=== PATIENT | male | born 1945 | race Caucasian/White ===

== ENCOUNTER → 2019-11-08 15:02 | Outpatient (CLI) | payer MEDICARE, SELFPAY ==
--- NOTE | ~2019-11-08 | CT_ITS ---
EXAMINATION: CT sinus wo con DATE: 11/08/2019 15:21 INDICATION: Chronic sinusitis TECHNIQUE: Computed tomography (CT) of the paranasal sinuses was performed without intravenous contra st. The dose-length product was 280.89 mGy-cm. COMPARISON: CT dated 07/23/2019 FINDINGS: There are interval surgical changes with resection of the ostiomeatal units. There is chron ic mucosal thickening of the frontal, ethmoid, maxillary and sphenoid sinuses. Mastoids are pneumatiz ed. There is deformity of the nasal septum is likely related to recent surgery. There is decreased ri ghtward nasal septal deviation. IMPRESSION: 1. Moderate chronic paranasal sinus disease with interval postsurgical change. Reviewed, dictated and finalized at location A. 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
== END ==
PROVIDERS: PCP Family Medicine; Visit Provider Otolaryngology
DX: J32.9 Chronic sinusitis, unspecified (principal)
CPT/HCPCS: 70486

== ENCOUNTER → 2019-11-11 15:54 | Outpatient (CLI) | payer MEDICARE, SELFPAY ==
--- NOTE | ~2019-11-11 | XR_ITS ---
[[id number] ] INDICATION: Right rib pain after recent fall TECHNIQUE: Frontal projection of the upper right ribs, frontal projection of the lower right ribs, ob lique projection of all the right ribs, frontal inspiratory chest x-ray for interpretation. FINDINGS: There is a possible nondisplaced right ninth rib fracture posteriorly. There are no soft ti ssue abnormality seen. The lungs are clear. No pneumothorax identified. IMPRESSION: 1: Possible nondisplaced right ninth rib fracture posteriorly. Reviewed, dictated and finalized at location A. 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
== END ==
PROVIDERS: PCP Family Medicine; Visit Provider Family Medicine
DX: R07.81 Pleurodynia (principal)
CPT/HCPCS: 71101

== ENCOUNTER → 2020-06-15 14:43 | Outpatient (CLI) | payer MEDICARE, SELFPAY ==
--- NOTE | ~2020-06-15 | CT_ITS ---
EXAMINATION: CT sinus wo con DATE: 06/15/2020 15:03 INDICATION: Chronic sinusitis. Rhinoplasty in August 2019 TECHNIQUE: Computed tomography (CT) of the paranasal sinuses was performed without contrast. Iterativ e reconstruction technique was employed. Exam dose: 282.66 mGy-cm total exam DLP. COMPARISON: 11/08/2019 CT sinuses FINDINGS: There is mild mucoperiosteal thickening of the right maxillary sinus and minimal mucoperios teal thickening of the remainder of the sinuses. No soft tissue masses or fluid levels. The mastoid air cells are normally developed and aerated bilaterally. There is minimal rightward bowing of the lower half of the nasal septum and mild to moderate leftward bowing of the upper portion of the nasal septum. Intralamellar cell of both middle nasal turbinates. The nasal turbinates are moderately prominent but relatively symmetric in size. Bilateral nasal antral windows and resection of the uncinate processes bilaterally. IMPRESSION: Status post bilateral nasal antral windows and uncinate process resection Bilateral intralamellar cell of middle nasal turbinates Mild mucoperiosteal thickening of right maxillary sinus and minimal mucoperiosteal thickening of the remaining sinuses Patent mastoid air cells Reviewed, dictated and finalized at Location A. Reviewed, dictated and finalized at location A. IMPRESSION: Status post bilateral nasal antral windows and uncinate process re section Bilateral intralamellar cell of middle nasal turbinates Mild mucoperiosteal thickening of right maxillary sinus and minimal mucoperiost eal thickening of the remaining sinuses Patent mastoid air cells
== END ==
PROVIDERS: Visit Provider Otolaryngology
DX: J34.2 Deviated nasal septum (principal); R93.0 Abnormal findings on diagnostic imaging of skull and head, not elsewhere classified
CPT/HCPCS: 70486

== ENCOUNTER 2021-06-16 16:57 | Emergency (ER) | payer MEDICARE, SELFPAY ==
[2021-06-16 17:16] VITALS: BP 165/78; PULSE 80; RESP 18; TEMP 37.1; O2SAT 97
--- NOTE | 2021-06-16 17:41 | ED.URI ---
HPI - URI/Sore Throat General Chief Complaint: Upper Respiratory Infection Stated Complaint: Sinus Time Seen by Provider: 06/16/21 17:41 Source: patient Mode of arrival: ambulatory Limitations: no limitations History of Present Illness HPI Narrative: Trevor Aldana is a 76 yo male with a PMH of tension, seasonal allergies, GERD, BHP, high cholesterol, diabetes, depression, who comes to [facility] for complaints of sinus issues he has just finished 2 rounds of antibiotics the first being amoxicillin and then Augmentin which he just finished he said that he needs an additional antibiotic for sinus issues and that he prefers to have Zithromax and prednisone. He has a primary care physician he also has an ENT; ENT did a sinus scraping 2 years ago that she said did not do any good He feels that he needs additional medication because the symptoms occur when he has constant bilateral sinus pressure Related Data Home Medications Medication Instructions Recorded Confirmed amlodipine 10 mg PO DAILY 06/16/21 06/16/21 aspirin 325 mg PO DAILY 06/16/21 06/16/21 azelastine 137 mcg INTRANASAL BID 06/16/21 06/16/21 carvedilol 25 mg PO DAILY 06/16/21 06/16/21 doxazosin 4 mg PO DAILY 06/16/21 06/16/21 escitalopram oxalate 10 mg PO DAILY 06/16/21 06/16/21 finasteride 5 mg PO DAILY 06/16/21 06/16/21 fluticasone propionate 50 mcg INTRANASAL DAILY 06/16/21 06/16/21 furosemide 40 mg PO DAILY 06/16/21 06/16/21 glipizide 5 mg PO DAILY 06/16/21 06/16/21 metformin 1,000 mg PO DAILY 06/16/21 06/16/21 montelukast 10 mg PO DAILY 06/16/21 06/16/21 rosuvastatin 20 mg PO DAILY 06/16/21 06/16/21 sitagliptin [Januvia] 100 mg PO DAILY 06/16/21 06/16/21 valsartan-hydrochlorothiazide 1 tablet PO DAILY 06/16/21 06/16/21 Allergies Allergy/AdvReac Type Severity Reaction Status Date / Time Sulfa (Sulfonamide Allergy Severe HIVES Verified 06/16/21 17:19 Antibiotics) Review of Systems Review of Systems: CONSTITUTIONAL: Denies fever, chills, sweats. EYES: Denies visual changes, redness, discharge. ENT: As rhinorrhea, congestion, sore throat, otalgia. Sinus pressure-bilateral CARDIOVASCULAR: Denies chest pain, palpitations, edema. RESPIRATORY: Denies dyspnea, wheezing, cough GASTROINTESTINAL: Denies abdominal pain, nausea, vomiting, diarrhea. GENITOURINARY: Denies dysuria, hematuria, abnormal discharge SKIN: Denies rash or itching. NEUROLOGIC: Denies numbness, or focal weakness. PSYCHIATRIC: Denies anxiety or depression. [facility] Past Medical History Medical History Depression Diabetes GERD (gastroesophageal reflux disease) High cholesterol HTN (hypertension) Seasonal allergies Social History Social History (Updated 06/16/21 @ 17:46 by Tita Han CNP) Smoking status: Former smoker Alcohol intake: current Comments At time of signature, I agree with nursing past medical, surgical, social and family history. There is no relevant family history pertinent to the presenting complaint. Has diagnosis of hypertension blood pressure is elevated Exam Narrative: GENERAL: This is a well-nourished, well-developed patient, in mild distress. HEAD: normocephalic, atraumatic. EYES: PERRL. Sclera clear/white. Vision is grossly intact. EARS: External ears normal, auditory canals clear and without drainage, right TM bulging with fluid behind left less so. Hearing grossly intact. NOSE: External nose normal without nasal discharge, right turbinate erythema, mild rhinorrhea. THROAT: Mucous membranes moist, posterior pharynx mild erythema NECK: Neck supple, non-tender CARDIOVASCULAR: Regular rate and rhythm without murmurs, gallops, or rubs. RESPIRATORY: Clear to auscultation. Breath sounds equal bilaterally. No wheezes, rales, or rhonchi. GASTROINTESTINAL: Abdomen soft, SKIN: warm, intact with no suspicious lesions or rash, good texture and turgor. NEURO: awake, alert, and oriented to person
== END 2021-06-16 18:15 | disposition home or self-care (01) ==
PROVIDERS: Emergency Provider Nurse Practitioner; PCP Family Medicine
DX: J01.10 Acute frontal sinusitis, unspecified (principal); Z87.891 Personal history of nicotine dependence; F32.9 Major depressive disorder, single episode, unspecified; E11.9 Type 2 diabetes mellitus without complications; K21.9 Gastro-esophageal reflux disease without esophagitis; E78.00 Pure hypercholesterolemia, unspecified; I10 Essential (primary) hypertension; Z79.82 Long term (current) use of aspirin
CPT/HCPCS: 99213; G0463

== ENCOUNTER → 2021-06-25 08:21 | Outpatient (CLI) | payer MEDICARE, SELFPAY ==
--- NOTE | ~2021-06-25 | CT_ITS ---
EXAMINATION: CT sinus wo con DATE: 06/25/2021 08:40 INDICATION: Chronic sinusitis TECHNIQUE: Computed tomography (CT) of the paranasal sinuses was performed without intravenous contra st. The dose-length product (DLP) was 292.39 mGy-cm. Iterative reconstruction was used. COMPARISON: 06/15/2020 FINDINGS: Surgical changes are noted in the medial aspects of the maxillary sinuses. There is normal development and pneumatization of the paranasal sinuses. There is mild mucosal thickening in the maxi llary sinuses, left sphenoid sinus, and frontal sinuses. The bilateral ostiomeatal complexes are pat ent. Visualized soft tissues are unremarkable. There is unchanged rightward deviation of the nasal se ptum. IMPRESSION: 1. Mild sinusitis as detailed above. Reviewed, dictated and finalized at location A.
== END ==
PROVIDERS: PCP Family Medicine; Visit Provider Nurse Practitioner Family
DX: J32.9 Chronic sinusitis, unspecified (principal)
CPT/HCPCS: 70486

== ENCOUNTER → 2022-06-10 15:29 | Outpatient (CLI) | payer MEDICARE, SELFPAY ==
--- NOTE | ~2022-06-10 | XR_ITS ---
EXAMINATION: XR knee LT min 4V DATE: 06/10/2022 16:03 INDICATION: Left knee pain. TECHNIQUE: 4 views of left knee including standing views were obtained. COMPARISON: None. FINDINGS: Bone alignment is normal. No fracture. Patellas bipartite. There is severe osteoarthritis o f medial compartment and mild osteoarthritis of lateral and patellofemoral compartments. No knee join t effusion. IMPRESSION: 1. Severe left knee osteoarthritis. Reviewed, dictated and finalized at location A.
== END ==
PROVIDERS: PCP Family Medicine; Visit Provider Family Medicine
DX: M17.12 Unilateral primary osteoarthritis, left knee (principal)
CPT/HCPCS: 73564

== ENCOUNTER 2022-07-30 10:33 | Emergency (ER) | payer MEDICARE, SELFPAY ==
[2022-07-30 11:10] VITALS: BP 128/72; PULSE 71; RESP 18; TEMP 36.8; O2SAT 99
--- NOTE | 2022-07-30 14:45 | ED.URI ---
HPI - URI/Sore Throat General Chief Complaint: Upper Respiratory Infection Stated Complaint: rt ear pain,sorethroat Source: patient Mode of arrival: ambulatory Limitations: no limitations History of Present Illness HPI Narrative: This is a 77 year old male who had sinus pressure, headache, earache, with the fatigue. Patient states he has had 2 sinus surgeries improved will wear move his body of the sinus infection. Patient denies any fever nausea or vomiting does not have any dizziness but does have some cough Related Data Home Medications Medication Instructions Recorded Confirmed amlodipine 10 mg tablet 10 mg PO DAILY 06/16/21 06/16/21 aspirin 325 mg tablet 325 mg PO DAILY 06/16/21 06/16/21 azelastine 137 mcg (0.1 %) nasal 137 mcg intranasal BID 06/16/21 06/16/21 spray aerosol carvedilol 25 mg tablet 25 mg PO DAILY 06/16/21 06/16/21 doxazosin 4 mg tablet 4 mg PO DAILY 06/16/21 06/16/21 escitalopram oxalate 10 mg tablet 10 mg PO DAILY 06/16/21 06/16/21 finasteride 5 mg tablet 5 mg PO DAILY 06/16/21 06/16/21 fluticasone propionate 50 50 mcg intranasal DAILY 06/16/21 06/16/21 mcg/actuation nasal spray,suspension furosemide 40 mg tablet 40 mg PO DAILY 06/16/21 06/16/21 glipizide 5 mg tablet 5 mg PO DAILY 06/16/21 06/16/21 metformin 1,000 mg tablet 1,000 mg PO DAILY 06/16/21 06/16/21 montelukast 10 mg tablet 10 mg PO DAILY 06/16/21 06/16/21 rosuvastatin 20 mg tablet 20 mg PO DAILY 06/16/21 06/16/21 sitagliptin 100 mg tablet (Januvia) 100 mg PO DAILY 06/16/21 06/16/21 valsartan 320 1 tablet PO DAILY 06/16/21 06/16/21 mg-hydrochlorothiazide 25 mg tablet Allergies Allergy/AdvReac Type Severity Reaction Status Date / Time Sulfa (Sulfonamide Allergy Severe Swelling Verified 07/30/22 11:38 Antibiotics) of Lip/Tongue/Throat Review of Systems Review of Systems: Headache, dizziness, sinus pressure a rate All systems reviewed & are unremarkable except as noted in HPI and below PMFSH Past Medical History Medical History Depression Diabetes GERD (gastroesophageal reflux disease) High cholesterol HTN (hypertension) Seasonal allergies Social History Social History (Updated 06/16/21 @ 17:46 by Tita Han, BETTYE) Smoking status: Former smoker Alcohol intake: current Exam Narrative: GENERAL:Well-appearing, well-nourished, and in no acute distress. HEAD:Normocephalic, atraumatic. EYES: PERRLA and EOMI. ENT: Nares clear, moderate rhinorrhea Mucous membranes moist. TM bulging with clear fluid CHEST: Clear to auscultation. No respiratory distress. HEART: Regular rate and rhythm.. Normal peripheral pulses. ABDOMEN: Soft, nontender, nondistended, normal active bowel sounds. EXTREMITIES: Normal range of motion. No edema. SKIN: Warm, dry, no rash. NEURO: No focal deficits. Alert and oriented x3. Course Course Emergency Course: Patient very adamant that he needed antibiotics this point the patient that antibiotics would fix him especially if it is not bacterial. Will order antibiotics of patient insisting Level of Care: Express Care Visit Vital Signs Vital signs: Vital Signs Temperature 98.2 F 07/30/22 11:10 Pulse Rate 71 07/30/22 11:10 Respiratory Rate 18 07/30/22 11:10 Blood Pressure 128/72 07/30/22 11:10 Pulse Oximetry 99 07/30/22 11:10 Oxygen Delivery Room Air 07/30/22 11:10 Temperature 98.2 F 07/30/22 11:10 Pulse Rate 71 07/30/22 11:10 Respiratory Rate 18 07/30/22 11:10 Blood Pressure 128/72 07/30/22 11:10 Pulse Oximetry 99 07/30/22 11:10 Oxygen Delivery Room Air 07/30/22 11:10 MDM - URI/Sore Throat Differential Diagnosis Differential diagnosis: Likely upper respiratory infection, otitis media, sinusitis, viral infection, bronchitis, influenza and pharyngitis Discharge Plan Discharge Clinical Impression: Earache on left Sinusitis Qualifiers: Sinusitis location: front
== END 2022-07-30 11:54 | disposition home or self-care (01) ==
PROVIDERS: Emergency Provider Nurse Practitioner Family; PCP Family Medicine
DX: H92.01 Otalgia, right ear (principal); J01.10 Acute frontal sinusitis, unspecified; E11.9 Type 2 diabetes mellitus without complications; K21.9 Gastro-esophageal reflux disease without esophagitis; E78.00 Pure hypercholesterolemia, unspecified; I10 Essential (primary) hypertension; Z87.891 Personal history of nicotine dependence; F32.A Depression, unspecified
CPT/HCPCS: 99213; G0463

== ENCOUNTER 2023-08-18 09:58 | Emergency (ER) | payer MEDICARE, SELFPAY ==
[2023-08-18 10:12] VITALS: BP 131/70; PULSE 68; RESP 18; TEMP 36.7; O2SAT 99
--- NOTE | 2023-08-18 11:17 | ED.URI ---
HPI - URI/Sore Throat General Chief Complaint: Upper Respiratory Infection Stated Complaint: cough,nasal drainage Time Seen by Provider: 08/18/23 11:10 Source: patient and RN notes reviewed Mode of arrival: ambulatory Limitations: no limitations History of Present Illness HPI Narrative: Patient presents today complaining of 5 day history of slight sore throat, fatigue, cough, nasal congestion. Denies fever or shortness of breath. He has been taking [place] Plus and DayQuil with mild relief. He has taken home COVID-19 test twice that have been negative. Denies any known sick contacts. History of chronic sinusitis for which he has had 2 rhinoplasty days. Last was in 2020. States symptoms have started to worsen since that time. Related Data Home Medications Medication Instructions Recorded Confirmed amlodipine 10 mg tablet 10 mg PO DAILY 06/16/21 08/18/23 aspirin 325 mg tablet 325 mg PO DAILY 06/16/21 08/18/23 azelastine 137 mcg (0.1 %) nasal 137 mcg intranasal BID 06/16/21 08/18/23 spray aerosol carvedilol 25 mg tablet 25 mg PO DAILY 06/16/21 08/18/23 doxazosin 4 mg tablet 4 mg PO DAILY 06/16/21 08/18/23 escitalopram oxalate 10 mg tablet 10 mg PO DAILY 06/16/21 08/18/23 finasteride 5 mg tablet 5 mg PO DAILY 06/16/21 08/18/23 furosemide 40 mg tablet 40 mg PO DAILY 06/16/21 08/18/23 glipizide 5 mg tablet 5 mg PO DAILY 06/16/21 08/18/23 metformin 1,000 mg tablet 1,000 mg PO DAILY 06/16/21 08/18/23 montelukast 10 mg tablet 10 mg PO DAILY 06/16/21 08/18/23 rosuvastatin 20 mg tablet 20 mg PO DAILY 06/16/21 08/18/23 sitagliptin phosphate 100 mg 100 mg PO DAILY 06/16/21 08/18/23 tablet (Januvia) valsartan 320 1 tablet PO DAILY 06/16/21 08/18/23 mg-hydrochlorothiazide 25 mg tablet Allergies Allergy/AdvReac Type Severity Reaction Status Date / Time Sulfa (Sulfonamide Allergy Severe Swelling Verified 08/18/23 10:19 Antibiotics) of Lip/Tongue/Throat Review of Systems Review of Systems: CONSTITUTIONAL: Denies body aches, fever, chills, or sweats.+ fatigue EYES: Denies visual changes, redness, or discharge. ENT: Denies rhinorrhea, otalgia.+ congestion, slight sore throat CARDIOVASCULAR: Denies chest pain, palpitations, or edema. RESPIRATORY: Denies dyspnea.+ cough GASTROINTESTINAL: Denies abdominal pain, nausea, vomiting, or diarrhea. GENITOURINARY: Denies dysuria or hematuria. SKIN: Denies rash, itching, or wounds. MUSCULOSKELETAL: Denies back pain, joint pain, or myalgia. NEUROLOGIC: Denies headache, numbness, tingling, or weakness. PSYCH: Denies depression or anxiety. [facility] Past Medical History Medical History Depression Diabetes GERD (gastroesophageal reflux disease) High cholesterol HTN (hypertension) Seasonal allergies Social History Social History Smoking status: Former smoker Alcohol intake: current Comments At time of signature, I have reviewed and agree with nursing past medical, surgical, social and family history unless otherwise noted. Please see nursing chart for further information. There is no relevant family history pertinent to the presenting complaint Exam Narrative: GENERAL: Well-appearing, well-nourished, and in no acute distress. HEAD: Normocephalic, atraumatic. EYES: EOMI. No redness or drainage. Conjunctivae normal. ENT: Mucous membranes pink and moist. Nares congested. No rhinorrhea. Erythematous and mildly swollen nasal turbinates. TMs normal bilaterally. Throat normal. Uvula midline. Bilateral maxillary sinus tenderness. NECK: Normal AROM. Supple. No lymphadenopathy. CHEST: No respiratory distress. Clear to auscultation. HEART: Regular rate and rhythm. No murmur appreciated. Normal peripheral pulses. EXTREMITIES: Normal range of motion. No edema. SKIN: Warm, dry, no rash. Capillary refill normal. Normal skin turgor. NEURO: No foc
== END 2023-08-18 11:23 | disposition home or self-care (01) ==
PROVIDERS: Emergency Provider Nurse Practitioner; PCP Family Medicine
DX: J01.00 Acute maxillary sinusitis, unspecified (principal); E11.9 Type 2 diabetes mellitus without complications; K21.9 Gastro-esophageal reflux disease without esophagitis; E78.00 Pure hypercholesterolemia, unspecified; I10 Essential (primary) hypertension; Z87.891 Personal history of nicotine dependence; Z79.82 Long term (current) use of aspirin
CPT/HCPCS: 99213; G0463

== ENCOUNTER 2023-10-01 00:50 | Day surgery (SDC) | payer MEDICARE, SELFPAY ==
[2023-08-21 15:21] VITALS: BMI 30.6
--- NOTE | 2023-09-15 11:22 | PC.NURSE ---
Colonoscopy rescheduled date 10/01/2023. Times & bowel prep instructions reviewed. No changes in medication or health status.
[2023-10-01 07:33] VITALS: BP 169/77; PULSE 92; RESP 18; TEMP 36.6; O2SAT 97
[2023-10-01] MEDS: LACTATED RINGERS 1,000 ML 150 ML IV CONT (07:45)
[2023-10-01 07:47] LABS: Glucose Point of Care 178 mg/dl (65-105)
--- NOTE | 2023-10-01 07:49 | WPDANESEPPF ---
Anes - Initial Pre Proc Eval Procedure: Operation Date: 10/01/23 08:30 Proposed Procedures p Colonoscopy - Rayo Alcantar MD Date/Time: 10/01/23 07:49 Surgeon: Rayo Alcantar MD Pre Op Diagnosis: Constipation, unspecified Patient Data Age: 78 Gender: M Height: 1.83 m Weight: 100.8 kg Last Vital Signs Temp 36.6 C 10/01/23 07:33 Pulse 92 10/01/23 07:33 Resp 18 10/01/23 07:33 BP 169/77 H 10/01/23 07:33 Pulse Ox 97 10/01/23 07:33 Allergies Allergy/AdvReac Type Severity Reaction Status Date / Time Sulfa (Sulfonamide Allergy Severe Swelling Verified 10/01/23 07:30 Antibiotics) of Lip/Tongue/Throat Home Medications Medication Instructions Recorded Confirmed Type amlodipine 10 mg tablet 10 mg PO DAILY 06/16/21 09/15/23 History aspirin 325 mg tablet 325 mg PO DAILY 06/16/21 09/15/23 History azelastine 137 mcg (0.1 %) nasal 137 mcg intranasal BID 06/16/21 09/15/23 History spray aerosol carvedilol 25 mg tablet 25 mg PO DAILY 06/16/21 09/15/23 History doxazosin 4 mg tablet 4 mg PO DAILY 06/16/21 09/15/23 History escitalopram oxalate 10 mg tablet 10 mg PO DAILY 06/16/21 09/15/23 History finasteride 5 mg tablet 5 mg PO DAILY 06/16/21 09/15/23 History furosemide 40 mg tablet 40 mg PO DAILY 06/16/21 09/15/23 History glipizide 5 mg tablet 5 mg PO DAILY 06/16/21 09/15/23 History metformin 1,000 mg tablet 1,000 mg PO DAILY 06/16/21 09/15/23 History montelukast 10 mg tablet 10 mg PO DAILY 06/16/21 09/15/23 History rosuvastatin 20 mg tablet 20 mg PO DAILY 06/16/21 09/15/23 History sitagliptin phosphate 100 mg 100 mg PO DAILY 06/16/21 09/15/23 History tablet (Januvia) valsartan 320 1 tablet PO DAILY 06/16/21 09/15/23 History mg-hydrochlorothiazide 25 mg tablet fluticasone propionate 50 1 spray intranasal BID #16 grams 07/30/22 09/15/23 Rx mcg/actuation nasal spray,suspension (Flonase Allergy Relief) amoxicillin 875 mg-potassium 1 tablet PO Q12H 7 days #14 tabs 08/18/23 09/15/23 Rx clavulanate 125 mg tablet Laboratory Tests 10/01/23 07:38 POC Capillary Glucose 178 H mg/dl (65-105) Patient hx anesthesia problems: none Family hx anesthesia problems: none Results Review: All pre-operative results and documents have been reviewed as part of the pre-operative evaluation. [facility] Past Medical History Medical History Depression Diabetes GERD (gastroesophageal reflux disease) High cholesterol HTN (hypertension) Seasonal allergies Social History Social History Smoking status: Never smoker Alcohol intake: never Substance use: never Substance use type: does not use Living arrangements: with family Spiritual care concerns: No Anes - Eval Final PreProcedure Day of Procedure 10/01/23 07:49 Patient weight: obese Heart: regular rate and rhythm Lungs: clear to auscultation Airway: Mallampati scale class III Neurological: alert and oriented Last oral intake: >/= 8 hours ASA classification: III Emergent: no Anesthetic plan: proceed Anesthesia type and monitoring: general GIVS and standard monitoring Results Review: All pre-operative results and documents have been reviewed as part of the pre-operative evaluation. Informed Consent: The patient's anesthetic plan and its attendant risks and benefits were discussed with the patient/family/POA. Questions were solicited and answers provided to the satisfaction of the patient/family/POA.
--- NOTE | 2023-10-01 08:16 | PM.HPGS ---
History of Present Illness History of Present Illness Consent: Risks, benefits, and alternatives have been discussed and questions answered. Patient agrees to proceed with procedure. Chief complaint: colon screening Narrative: Trevor Aldana is a 78 year old male here for colonoscopy screening, last one about 6 years ago Review of Systems Constitutional: Constitutional: Denies headache(s) and Denies weakness Eyes: Eyes: Denies blurry vision ENT: Reports Normal hearing present, Denies headache(s) and Denies neck pain Cardiovascular: Cardiovascular: Denies chest pain and Denies dyspnea Respiratory: Respiratory: Denies dyspnea Gastrointestinal: Gastrointestinal: Reports no additional gastrointestinal complaints Genitourinary: Genitourinary: Denies dysuria Musculoskeletal: Musculoskeletal: Denies neck pain Integumentary/Breasts: Skin/Breast: Denies dry skin Neurologic: Reports Normal hearing present, Denies headache(s) and Denies weakness Psychiatric: Psychiatric: Denies anxiety Endocrine: Endocrine: Denies change in body appearance Hematologic/Lymphatic: Hematologic/Lymphatic: Denies easy bleeding Allergic/Immunologic: Allergic/Immunologic: Denies urticaria PMFSH Past Medical History Medical History (Updated 10/01/23 @ 08:17 by Rayo Alcantar MD) Colon cancer screening Depression Diabetes GERD (gastroesophageal reflux disease) High cholesterol HTN (hypertension) Seasonal allergies Social History Social History Smoking status: Never smoker Alcohol intake: never Substance use: never Substance use type: does not use Living arrangements: with family Spiritual care concerns: No Meds Home Medications and Allergies Home Medications Medication Instructions Recorded Confirmed Type amlodipine 10 mg tablet 10 mg PO DAILY 06/16/21 09/15/23 History aspirin 325 mg tablet 325 mg PO DAILY 06/16/21 09/15/23 History azelastine 137 mcg (0.1 %) nasal 137 mcg intranasal BID 06/16/21 09/15/23 History spray aerosol carvedilol 25 mg tablet 25 mg PO DAILY 06/16/21 09/15/23 History doxazosin 4 mg tablet 4 mg PO DAILY 06/16/21 09/15/23 History escitalopram oxalate 10 mg tablet 10 mg PO DAILY 06/16/21 09/15/23 History finasteride 5 mg tablet 5 mg PO DAILY 06/16/21 09/15/23 History furosemide 40 mg tablet 40 mg PO DAILY 06/16/21 09/15/23 History glipizide 5 mg tablet 5 mg PO DAILY 06/16/21 09/15/23 History metformin 1,000 mg tablet 1,000 mg PO DAILY 06/16/21 09/15/23 History montelukast 10 mg tablet 10 mg PO DAILY 06/16/21 09/15/23 History rosuvastatin 20 mg tablet 20 mg PO DAILY 06/16/21 09/15/23 History sitagliptin phosphate 100 mg 100 mg PO DAILY 06/16/21 09/15/23 History tablet (Januvia) valsartan 320 1 tablet PO DAILY 06/16/21 09/15/23 History mg-hydrochlorothiazide 25 mg tablet fluticasone propionate 50 1 spray intranasal BID #16 grams 07/30/22 09/15/23 Rx mcg/actuation nasal spray,suspension (Flonase Allergy Relief) amoxicillin 875 mg-potassium 1 tablet PO Q12H 7 days #14 tabs 08/18/23 09/15/23 Rx clavulanate 125 mg tablet Allergies Allergy/AdvReac Type Severity Reaction Status Date / Time Sulfa (Sulfonamide Allergy Severe Swelling Verified 10/01/23 07:30 Antibiotics) of Lip/Tongue/Throat Vital Signs Vital Signs - 24 hr 10/01/23 07:33 Temperature 97.8 F Pulse Rate 92 Respiratory Rate 18 Blood Pressure 169/77 H Pulse Oximetry 97 Exam Const: General: comfortable and no acute distress HENMT: Face/Nose/Sinus: Normal nares present Eyes: General: appearance normal, both eyes and all related structures Neck: Neck: no JVD Resp: Auscultation: clear to auscultation bilaterally Cardio: Rate: regular rate Rhythm: regular rhythm GI: Inspection: non-distended GI Palp: Yes Soft to palpation Skin: General skin exam: normal color Neuro: General: gait normal Speech:
[2023-10-01 08:45] VITALS: BP 102/57; PULSE 70; RESP 15; O2SAT 97
[2023-10-01 08:55] VITALS: BP 104/60; PULSE 72; RESP 16; O2SAT 95
[2023-10-01 09:05] VITALS: BP 153/81; PULSE 79; RESP 19; O2SAT 96
== END 2023-10-01 09:09 | disposition home or self-care (01) ==
PROVIDERS: PCP Family Medicine; Visit Provider Internal Medicine Gastroenterology
PROC: 0DJD8ZZ Inspection of Lower Intestinal Tract, Via Natural or Artificial Opening Endoscopic (ICD-10-PCS; CPT 45378; principal; 2023-10-01 08:30)
DX: Z12.11 Encounter for screening for malignant neoplasm of colon (principal); D12.3 Benign neoplasm of transverse colon; D12.0 Benign neoplasm of cecum; D12.2 Benign neoplasm of ascending colon; K63.5 Polyp of colon; K57.30 Diverticulosis of large intestine without perforation or abscess without bleeding; K64.8 Other hemorrhoids; E11.9 Type 2 diabetes mellitus without complications; I10 Essential (primary) hypertension; E78.00 Pure hypercholesterolemia, unspecified; K21.9 Gastro-esophageal reflux disease without esophagitis; F32.A Depression, unspecified; Z79.82 Long term (current) use of aspirin; Z79.84 Long term (current) use of oral hypoglycemic drugs; E66.9 Obesity, unspecified; Z68.30 Body mass index [BMI] 30.0-30.9, adult
CPT/HCPCS: 45385; 82948; 88305; J2704; J7120

== ENCOUNTER 2024-02-18 15:02 | Outpatient (CLI) | payer MEDICARE, SELFPAY ==
--- NOTE | ~2024-02-18 | US_ITS ---
EXAMINATION: US carotid duplex BI DATE: 02/18/2024 16:08 INDICATION: Vertigo TECHNIQUE: Grayscale, color Doppler, and pulsed Doppler images of the cervical carotid arteries were obtained. The degree of vessel stenosis is placed in one of the following categories: normal, <50%, 5 0-69%, >=70% but less than near-occlusion, near-occlusion, or total occlusion. Note that percent sten osis relative to normal distal artery lumen diameter is indirectly measured from velocity measurement s as described by Remington, et al. Radiology 2003; 229:340-346. COMPARISON: None. FINDINGS: RIGHT: The right common carotid artery (CCA) peak systolic velocity (PSV) is 72 cm/s. The right internal car otid artery (ICA) PSV is 153 cm/s. The right ICA end-diastolic velocity (EDV) is 35 cm/s. The right I CA/CCA PSV ratio is 2.1. Grayscale and color Doppler images yield an estimate of 50-69% diameter redu ction from plaque in the ICA. The external carotid artery (ECA) PSV is 66 cm/s. There is antegrade fl ow in the right vertebral artery. LEFT: The left CCA PSV is 98 cm/s. The left ICA PSV is 67 cm/s. The left ICA EDV is 21 cm/s. The left ICA/C CA PSV ratio is 0.8. Grayscale and color Doppler images yield an estimate of <50% diameter reduction from plaque in the ICA. The ECA PSV is 131 cm/s. There is antegrade flow in the left vertebral artery . IMPRESSION: 1. 50-69% stenosis in the right internal carotid artery. 2. <50% stenosis in the left internal carotid artery. Reviewed, dictated and finalized at location A.
== END 2024-02-18 15:03 | disposition home or self-care (01) ==
PROVIDERS: PCP Family Medicine; Visit Provider Family Medicine
DX: R42 Dizziness and giddiness (principal); I65.23 Occlusion and stenosis of bilateral carotid arteries
CPT/HCPCS: 93880

== ENCOUNTER 2024-06-09 12:21 | Emergency (ER) | payer MEDICARE, SELFPAY ==
[2024-06-09 12:39] VITALS: BP 151/67; PULSE 85; RESP 16; TEMP 37; O2SAT 97
--- NOTE | 2024-06-09 12:50 | ED.URI ---
HPI - URI/Sore Throat General Chief Complaint: Upper Respiratory Infection Stated Complaint: sinus issues and cold Time Seen by Provider: 06/09/24 12:50 Source: patient and RN notes reviewed Mode of arrival: ambulatory Limitations: no limitations History of Present Illness HPI Narrative: 79-year-old male presents concern for chronic sinus problems. Reports he has chronic nasal congestion and rhinorrhea with drainage, over the last 3 days symptoms have worsened with facial pain and pressure. Reports cough. He denies fever. Reports taking Coricidin THIAGOP MD elicited complaint: cough, nasal congestion and sinus pain Related Data Home Medications Medication Instructions Recorded Confirmed amlodipine 10 mg tablet 10 mg PO DAILY 06/16/21 06/09/24 aspirin 325 mg tablet 325 mg PO DAILY 06/16/21 06/09/24 azelastine 137 mcg (0.1 %) nasal 137 mcg intranasal BID 06/16/21 06/09/24 spray carvedilol 25 mg tablet 25 mg PO DAILY 06/16/21 06/09/24 doxazosin 4 mg tablet 4 mg PO DAILY 06/16/21 06/09/24 escitalopram oxalate 10 mg tablet 10 mg PO DAILY 06/16/21 06/09/24 finasteride 5 mg tablet 5 mg PO DAILY 06/16/21 06/09/24 furosemide 40 mg tablet 40 mg PO DAILY 06/16/21 06/09/24 glipizide 5 mg tablet 5 mg PO DAILY 06/16/21 06/09/24 metformin 1,000 mg tablet 1,000 mg PO BID 06/16/21 06/09/24 montelukast 10 mg tablet 10 mg PO DAILY 06/16/21 06/09/24 rosuvastatin 20 mg tablet 20 mg PO DAILY 06/16/21 06/09/24 sitagliptin phosphate 100 mg 100 mg PO DAILY 06/16/21 06/09/24 tablet (Januvia) valsartan 320 1 tablet PO DAILY 06/16/21 06/09/24 mg-hydrochlorothiazide 25 mg tablet omeprazole magnesium 20 mg 40 mg PO DAILY 06/09/24 06/09/24 tablet,delayed release (Prilosec OTC) Allergies Allergy/AdvReac Type Severity Reaction Status Date / Time Sulfa (Sulfonamide Allergy Severe Swelling Verified 06/09/24 12:35 Antibiotics) of Lip/Tongue/Throat Review of Systems Review of Systems: CONSTITUTIONAL: Denies malaise, chills, sweats, or fever. EYES: Denies visual changes, redness, or discharge. ENT: Reports rhinorrhea, congestion, sinus pain, otalgia CARDIOVASCULAR: Denies chest pain, palpitations, or edema. RESPIRATORY: Reports cough. Denies dyspnea. GASTROINTESTINAL: Denies abdominal pain, nausea, vomiting, diarrhea SKIN: Denies rash or itching. MUSCULOSKELETAL: Denies myalgia. NEUROLOGIC: Denies headache. All systems reviewed & are unremarkable except as noted in HPI and below PMFSH Past Medical History Medical History (Updated 06/09/24 @ 12:57 by Alejandra Gonzales NP) Colon cancer screening Depression Diabetes GERD (gastroesophageal reflux disease) High cholesterol HTN (hypertension) Seasonal allergies Social History Social History Smoking status: Never smoker Alcohol intake: never Substance use: never Substance use type: does not use Living arrangements: with family Spiritual care concerns: No Comments At time of signature, agree with nursing past medical, surgical, social and family history. There is no relevant family history pertinent to the presenting complaint Exam Narrative: GENERAL: Well-appearing, well-nourished, and in no acute distress. HEAD: Normocephalic EYES: PERRLA, conjunctivae clear ENT: Nares clear, turbinates edematous and erythematous. Mucous membranes moist. TM pearly españa with dull light reflex bilaterally; no tragal tenderness. Oropharynx not erythematous without lesions. Tonsils not enlarged and without exudate, no drooling, no hoarseness, no trismus, uvula midline. NECK: Supple. No lymphadenopathy CHEST: Clear to auscultation, breath sounds equal. No wheezing, rhonchi, rales, or stridor. No respiratory distress, speaks in full sentences. HEART: Regular rate and rhythm. No murmur heard. SKIN: Warm, dry, no rash. NEURO: Alert and oriented x3. PSYCH: Normal mood and affect Course Course Emergency Course: [place]
== END 2024-06-09 13:00 | disposition home or self-care (01) ==
PROVIDERS: Emergency Provider Nurse Practitioner
DX: J32.9 Chronic sinusitis, unspecified (principal); Z20.822 Contact with and (suspected) exposure to COVID-19; E11.9 Type 2 diabetes mellitus without complications; Z79.84 Long term (current) use of oral hypoglycemic drugs; K21.9 Gastro-esophageal reflux disease without esophagitis; E78.00 Pure hypercholesterolemia, unspecified; I10 Essential (primary) hypertension
CPT/HCPCS: 87426; 99213; G0463

== ENCOUNTER 2024-09-17 10:45 | Outpatient (RCR) | payer MEDICARE, SELFPAY ==
--- NOTE | 2024-09-06 08:59 | OPREHPOC ---
Outpatient Therapy Plan of Care This is a Multidisciplinary Plan of Care that may contain components documented by all disciplines (PT, OT, and ST.) PT Problem 1 PT Problem #1 Knowledge Deficit PT Goal 1 Goal / Goal Update *indep with HEP Target Visit 8 PT Problem 2 PT Problem #2 Impaired Functional Mobility PT Goal 1 Goal / Goal Update 1* 5 reps sit/stand time of 15 seconds 2* Real balance score of 55/56 3* 2 minute walking test distance of 450' 4* pt able to perform simulated golf swing x 5 reps without loss of balance Target Visit 8
--- NOTE | 2024-09-06 09:00 | PTOPEVAL1 ---
Assessment and note entered by Stefanie Greene, PT Evaluation Information Assessment Status Evaluation ICD-10 Condition Codes (PT) Difficulty Walking R26.2,R26.9,BPPV H81.12 Onset February 2024 Subjective Information in the past 6 months have fallen 2x; feel off balance with turning around in the shower; symptoms: off balance, unsteady risk factors: recent eye exam-- have glasses; have sinus issues and infections- doing OK now; activity: doing all home and self care activities due to balance, have not played golf lately; do not do any fitness activities; Reported Pain Level Pain Score 0: Self Report Assessment PT Clinical Summary Trevor has the diagnosis of vestibular therapy. He reports more off balance and unsteady with 2 falls in the past 6 months. He no longer golfs due to balance issues and standing and turning give him troubles. He does not do any regular fitness activities. He is raising his 2 grand children. With the evaluation: his Real balance score is 48/56- decreased ability with single leg standing and small base of support standing; he did not report any dizziness issues with rolling in bed, supine/sit transfer; 5 reps sit/stand time of 21 seconds and 2 minute walking test distance of 360' With descending stairs, he uses single step patter. He has decreased overall strength of LE's with single leg standing R and L 3-4 seconds with loss of balance. Skilled PT services are indicated to increase LE strength, gait and balance skills, to return to playing golf and decrease risk for falls. Plan of Care Interventions Gait Training,Neuro Re-education,Patient Education,Therapeutic Activities,Therapeutic Exercise PT Services Indicated Yes Treatment Frequency and 1-2x/wk for 8 visits Duration These treatments will address the objective and functional deficits as defined above. The patient will be advanced safely and appropriately in order for the patient to progress towards his/her prior level of function. Additional exercises will be introduced and as well as a comprehensive home exercise program upon discharge, if needed, ?to ensure carryover of functional gains achieved in the clinic. This treatment plan has been reviewed and agreement upon by the patient.
--- NOTE | 2024-09-06 09:01 | PCPTNOTE ---
pt was 10 minutes late for initial eval appt.
--- NOTE | 2024-09-16 09:16 | PCPTNOTE ---
Late entry, pt canceled due to illness, for appt on 09/15/24 at 10am.
--- NOTE | 2024-10-07 11:29 | PTOPDC ---
Assessment and note entered by Stefanie Greene, PT Assessment Status Discharge - Pt Not Present ICD-10 Condition Codes (PT) Difficulty Walking R26.2,Abnormalities of gait and mobility R26.9,BPPV H81.12 Onset February 2024 Subjective Information pt was not seen this date. Assessment PT Clinical Summary Trevor received the PT evaluation and one treatment session. He called and canceled one appointment. He has not attended therapy since September 17. Discharge PT due to not attending. The goals were not addressed. Plan of Care PT Services Indicated No
== END 2024-10-07 17:10 | disposition home or self-care (01) ==
LOC: ANHPT 10:45
PROVIDERS: Visit Provider Family Medicine
DX: H81.13 Benign paroxysmal vertigo, bilateral (principal)
CPT/HCPCS: 97110; 97112; 97161; 97530

== ENCOUNTER 2025-02-18 11:39 | Outpatient (CLI) | payer MEDICARE, SELFPAY ==
--- NOTE | ~2025-02-18 | XR_ITS ---
Left Shoulder Technique: AP and axillary views were obtained. Clinical History: Pain Findings: No fracture or dislocation is seen. Osseous alignment is anatomic. The glenohumeral joint i s intact. There is mild to moderate AC joint degenerative change. Soft tissues are unremarkable. Impression: Gohg-aq-lhjoyywc AC joint degenerative change. Reviewed, dictated and finalized at location . Impression: Rubb-xv-fkkoxxri AC joint degenerative change.
--- OUTSIDE RECORDS SUMMARY | 2025-02-18 11:42 | XMS_ITS | Encounter Summary ---
Author Organization [facility] Healthcare Address [address] [place] [address] Care Team Providers Care Core Maker Name Role Phone Art Trevino MD Primary Care Provider [phone] Encounter Details Date Type Department Care Team (Late st Contact Info) Description 01/20/2025 Results Follow-Up [facility] [address] [address] [place] [id number] [address] Social History Tobacco Use Types Packs/Day Years Used Date Smoking Tobacco: Former Cigarettes Q uit: 10/13/1979 Alcohol Use Standard Drinks/Week Comments Yes 0 (1 standard drink = 0.6 oz pur e alcohol) Sex and Gender Information Value Date Recorded Sex Assigned at Not on file 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
--- OUTSIDE RECORDS SUMMARY | 2025-02-18 11:42 | XMS_ITS | Clinical Summary ---
Author Organization [facility] Address [address] [place] [address] Care Team Providers Care Specimen Boss Name Role Phone Unavailable Primary Care Provider Unavailabl e Source Comments [facility],non-owned Affiliates and Associated Physician Practices is amultiple site organization consisting of ambulatory clinics and hospital sitesin [place], [place], [place] and [place]. This disclosure is being madepursuant to the Care Everywhere program and may not contain all information available regarding this patient. 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 Gender Identity Not on file Sexual Orientation Not on file Plan of Treatment Health Maintenance Due Date Last Done Comments HEPATITIS C SCREENING [birth year]31/1963 DTAP/TDAP/TD VACCINES (1 - Tdap) 1966 PNEUMOCOCCAL VACCINE 50+ (1 of 1 - PCV) 1997 ZOSTER VACCINE (1 of 2) 1997 Respiratory Syncytial Virus (RSV) Vaccine Pt: or over 60 yrs (1 - 1-dose 75+ series) 2022 COVID-19 VACCINE ( - 2023-2 5 season) 2024 DEPRESSION SCREENING 10/13/2024 MEDICARE AWV CALENDAR YEAR 2024 INFLUENZA VACCINE (Season Ended) 2025 HEPATITIS B VACCINE Aged Out No longe r eligible based on patient's age to complete this topic HIB VACCINE Aged Out No longer eligi ble based on patient's age to complete this topic HPV VACCINE Aged Out No longer eligi ble based on patient's age to complete this topic MENINGOCOCCAL (Group B) VACC INE SHARED DECISION-MAKING Aged Out No longer eligibl e based on patient's age to complete this topic MENINGOCOCCAL GROUPS A/C/Y/W VACCINE Aged Out No longer eligible b ased on patient's age to complete this topic Insurance [employer] MEDICARE ADV
--- OUTSIDE RECORDS SUMMARY | 2025-02-18 11:42 | XMS_ITS | Clinical Summary ---
Author Organization [facility] Address [facility] [place] [address] Care Team Providers Care Line Inspector Name Role Phone Merari Adams MD Primary Care Provider [phone] Allergies Active Allergy Reactions Criticality Noted Date Comments Sulfa Antibiotics Swelling 03/13/2020 Medications metFORMIN 1000 MG tablet Take 1,000 mg by mouth 2 (two) times daily with meals. Active finasteride 5 MG tablet Take 5 mg by mouth daily. Active carvedilol 25 MG tablet Take 25 mg by mouth 2 (two) times daily. Active valsartan 320 MG tablet Take 320 mg by mouth daily. Active montelukast 10 MG tablet Take 10 mg by mouth nightly at bedtime. Active omeprazole 20 MG capsule Take 20 mg by mouth daily. Active furosemide 40 MG tablet Take 40 mg by mouth daily. Active Pediatric Multivit-Minera ls-C (COMPLETE MULTI-VITAMIN OR) Active aspirin 325 MG tablet Take 325 mg by mouth daily. Active omega-3 fatty acid 500 MG capsule Take 1,000 mg by mouth daily. Active rosuvastatin 20 MG tablet Take 20 mg by mouth nightly at bedtime. Active amLODIPine 10 MG tablet Take 10 mg by mouth daily. Active SITagliptin 100 MG tablet Take 100 mg by mouth daily. Active glipiZIDE 10 MG tablet Take 15 mg by mouth every morning before breakfast. Active Active Problems No known active problems Social History Tobacco Use Types Packs/Day Years Used Date Smoking Tobacco: Never Smokeless Tobacco: Never Alcohol Use Standard Drinks/Week Comments Never 0 (1 standard drink = 0.6 oz pur e alcohol) AUDIT-C Answer Date Recorded Frequency of Alcohol Consumption Never 03/13/2020 Average Number of Drinks Not on file 020 Frequency of Binge Drinking Not on file 10/2019 Sex and Gender Information Value Date Recorded Sex Assigned at Not on file Legal Sex Male 3:06 PM CDT Gender Identity Not on file Sexual Orientation Not on file Last Filed Vital Signs Vital Sign Reading Time Taken Comments Blood Pressure 135/57 03/20/2020 10:16 AM CDT Pulse 78 03/20/2020 10:16 AM CDT Temperature 36.7 C (98.1 F) 03/20/2020 10:16 AM CDT Respiratory Rate 18 03/20/2020 10:16 AM CDT Oxygen Saturation 98% 03/20/2020 10:16 AM CDT Inhaled Oxygen Concentration - - Weight 104.3 kg (230 lb) 03/13/2020 6:13 PM CDT Height 185.4 cm (6' 1 ) 03/13/2020 6:13 PM CDT Body Mass Index 30.34 03/13/2020 6:13 PM CDT Plan of Treatment Health Maintenance Due Date Last Done Comments Hepatitis C 1965 DTaP, Tdap and Td Vaccines ( 1 - Tdap) 1966 Pneumococcal Vaccine: 50+ Ye ars (1 of 1 - PCV) 1997 Zoster Vaccines (1 of 2) 1997 Annual Medicare Wellness Visit 2012 RSV Immunization or 60+ Years (1 - 1-dose 75+ series) 2022 COVID-19 Vaccine ( - 2023-2 5 season) 2024 Meningococcal B Vaccine Aged Out No l onger eligible based on patient's age to complete this topic Meningococcal Vaccine Aged Out No sarah jenni eligible based on patient's age to complete this topic RSV Immunizations Under 20 Months Aged Out No longer eligible based on patient's age to complete this topic Medical Devices Implanted Type Area Candy Starch Mold Printer Device Identifier Shelf Expiration Date Model / Serial / Lot Iol Toric Lens [id number] - [id number] Implanted:Qty: 1 on 03/20/2020 by Avni Astorga MD at [facility] Lens Left: Eye [facility] 07/12/2022 [id number] / [id number] / [place] [address] [employer] Care Teams Line Inspector Relationship Specialty Start Date End Date Merari Adams MD [address] [place] [id number] PCP - General FAMILY PRACTICE 03/15/20
--- OUTSIDE RECORDS SUMMARY | 2025-02-18 11:42 | XMS_ITS | CONTINUITY OF CARE DOCUMENT ---
Author Name efraín kenny Address Unknown Organization [facility] Address [address] [place] [address] [address] [place] [address] Phone [phone] Care Team Providers Care Balance Staff Staker Name Role Phone Sharan Carbajal MD Unavailable [phone] Sharan Carbajal MD Unavailable INSURANCE PROVIDERS Payer name Policy type / Coverage type [place] red democrat ID [employer]NA MEDICARE GOLD ADVANTAGE HMO Medicare [id number]
--- OUTSIDE RECORDS SUMMARY | 2025-02-18 11:42 | XMS_ITS | Data Portability ---
Author Organization [facility] [employer], Main Office Address [address] [place] [address] Assessment No assessment recorded. Plan of Treatment Reminders Order Date Submit Date Provider Last Modified By Organization Details Last Modified Time Details Appointments None recorded. Lab HbA1c (hemoglobin A1c), blood 2023 024 [email or web address] 477 [facility] (Lab), [address] [place], [address], 4 08:29:59 BMP, serum or plasma 2023 [email or web address] [place] [address] (Lab), [address] [place], [address], 4 08:29:59 microalbumi n, urine 2023 024 [email or web address] 4 [facility] (Lab), [address] [place], [address], 4 15:26:24 CBC w/ auto diff 2023 024 [email or web address] 7 [facility] (Lab), [address] [place], [address], 4 08:29:59 lipid panel, serum 2023 [email or web address] [place] [address] (Lab), [address] [place], [address], 4 08:29:59 hepatic function panel, serum 2023 024 [email or web address] 7 [facility] (Lab), [address] [place], [address], 4 08:29:59 testosteron e, free + total, serum 2023 [email or web address] [place] [address] (Lab), [address] [place], [address], 4 08:29:58 Referral None recorded. Procedures None recorded. Surgeries None recorded. Imaging US, duplex, carotid artery - *Please call pt to schedule* 2023 [facility], 2022 Idania Holloway, [address], [address], 4 17:16:44 Medication Orders triamcinolo ne acetonide 40 mg/mL suspension for injection 2023 024 [email or web address] Not available 12:46:59 lidocaine (PF) 10 mg/mL (1 %) injection solution 2023 024 [email or web address] Not available 12:47:57 c[address]ir [address] [facility] #[id number], [address] [place], [address], 4 16:34:41 Patient TargetsNo targets recorded. Patient Instructions Encounter Date Encounter Id Patient Instructions Last Modified By Organization Details Last Modified Time 01/13/2024 [id number] Personalized a lt Plan and Screening Recommendations Advance Directives - Do you have one? Advance Directives - Do we have your advance directive on file in your health record? Primary Prevention/Interven tion (prevents or decreases the chance of common diseases from occurring) Smoking Risk: Alcohol Misuse Screening: Weight: Physical activity: Nutrition: Fall Risk (screened today): Vaccines Pneumococcal: Influenza: Your next one in the fall of this year Chronic Disease Risks Stroke: I have no recommendations Act tahir diagnosis, Continue current treatment plan Heart Attack: I have no recommendations Act tahir diagnosis, Continue current treatment plan Clogging of the Arteries: I have no recommendations Act tahir diagnosis, Continue current treatment plan Diabetes: Active diagnosis, Continue current treatment plan Secondary Prevention/Interven tion (detects treatable diseases before they may cause symptoms, disability, or ) Prostate Cancer Screening: Colon Cancer Screening: Date Screening Last Performed: Eye Disease Screening: Dementia Risk: Depression Screening: Active diagnosis, Continue current treatment plan Not available 01/13/2024 19:27:29 Reason for Referral None Reported. Results Created Date Observation Date Name Description Value Unit Range Abnormal Flag Note LastModifiedBy Organization Detail LastModifiedTime 02/04/20 24 02/04/2024 MICRO ALBUM IN RANDO M URINE microalbumin , urine 11.9 mg/L 0.0-16 .6 Not Available [facility] (Lab) [address] [place], [address], 02/04/2024 21:34:24 02/05/20 24 02/05/2024 CBC/C OMPLE TE BLD COUNT W/DIF F white blood cells 6.2 x10'3 /uL 4.2-10 .8 Not Available [facility] (Lab) [address] [place], [address], 02/05/2024 19:44:41 02/05/2002/05/2024 CBC/C OMPLE TE BLD COUNT W/DIF F red blood cells 4.21 x10'6 /uL 4.10-5 .80 Not Available [facility] (Lab) [address] [place], [address], 02/05/2024 19:44:41 02/05/20 24 02/05/2024 CBC/C OMPLE TE BLD COUNT W/DIF F hemoglobin 12.6 g/dL 13.2-1 7.0 low Not Available [facility] (Lab) [address] [place], [address], 02/05/2024 19:44:41 02/05/20 24 02/05/2024 CBC/C OMPLE TE BLD COUNT W/DIF F hematocrit 37.1 % 39.3-5 0.0 low Not Available [facility] (Lab) [address] [place], [address], 02/05/2024 19:44:41 02/05/20 24 02/05/2024 CBC/C OMPLE TE BLD COUNT W/DIF F mean red cell volume 88.1 fL 80.0-9 7.0 Not Available [facility] (Lab) [address] [place], [address], 02/05/2024 19:44:41 02/05/20 24 02/05/2024 CBC/C OMPLE TE BLD COUNT W/DIF F mean red cell hemoglobin 29.9 pg 27.0-3 3.0 Not Available [facility] (Lab) [address] [place], [address], 02/05/2024 19:44:41 02/05/20 24 02/05/2024 CBC/C OMPLE TE BLD COUNT W/DIF F mean RBC HGB concentratio n 34.0 g/dL 31.0-3 6.0 Not Available [facility] (Lab) [address] [place], [address], 02/05/2024 19:44:41 02/05/20 24 02/05/2024 CBC/C OMPLE TE BLD COUNT W/DIF F red cell distribution width 13.6 % 11.8-1 5.5 Not Available [facility] (Lab) [address] [place], [address], 02/05/2024 19:44:41 02/05/20 24 02/05/2024 CBC/C OMPLE TE BLD COUNT W/DIF F platelets 158 x10'3 /uL 150-40 0 Not Available [facility] (Lab) [address] [place], [address], 02/05/2024 19:44:41 02/05/20 24 02/05/2024 CBC/C OMPLE TE BLD COUNT W/DIF F mean platelet volume 9.6 fL 9.0-12 .4 Not Available [facility] (Lab) [address] [place], [address], 02/05/2024 19:44:41 02/05/20 24 02/05/2024 CBC/C OMPLE TE BLD COUNT W/DIF F neutrophils 74.7 % 39.0-7 2.0 high Not Available [facility] (Lab) [address] [place], [address], 02/05/2024 19:44:41 02/05/20 24 02/05/2024 CBC/C OMPLE TE BLD COUNT W/DIF F lymphocytes 12.5 % 16.0-4 7.0 low Not Available [facility] (Lab) [address] [place], [address], 02/05/2024 19:44:41 02/05/20 24 02/05/2024 CBC/C OMPLE TE BLD COUNT W/DIF F monocytes 9.1 % 5.0-12 .0 Not Available [facility] (Lab) [address] [place], [address], 02/05/2024 19:44:41 02/05/20 24 02/05/2024 CBC/C OMPLE TE BLD COUNT W/DIF F eosinophils 3.2 % 1.0-7. 0 Not Available [facility] (Lab) [address] [place], [address], 02/05/2024 19:44:41 02/05/20 24 02/05/2024 CBC/C OMPLE TE BLD COUNT W/DIF F basophils 0.2 % 0.0-2. 0 Not Available [facility] (Lab) [address] [place], [address], 02/05/2024 19:44:41 02/05/20 24 02/05/2024 CBC/C OMPLE TE BLD COUNT W/DIF F immature granulocytes 0.3 % 0.00-0 .50 Not Available [facility] (Lab) [address] [place], [address], 02/05/2024 19:44:41 02/05/20 24 02/05/2024 CBC/C OMPLE TE BLD COUNT W/DIF F neutrophils, absolute count 4.60 x10'3 /uL 1.5-8. 0 Not Available [facility] (Lab) [address] [place], [address], 02/05/2024 19:44:41 02/05/20 24 02/05/2024 CBC/C OMPLE TE BLD COUNT W/DIF F lymphocytes, absolute count 0.77 x10'3 /uL 1.07-3 .43 low Not Available [facility] (Lab) [address] [place], [address], 02/05/2024 19:44:41 02/05/20 24 02/05/2024 CBC/C OMPLE TE BLD COUNT W/DIF F monocytes, absolute count 0.56 x10'3 /uL 0.29-0 .99 Not Available [facility] (Lab) [address] [place], [address], 02/05/2024 19:44:41 02/05/20 24 02/05/2024 CBC/C OMPLE TE BLD COUNT W/DIF F eosinophils, absolute count 0.20 x10'3 /uL 0.02-0 .53 Not Available [facility] (Lab) [address] [place], [address], 02/05/2024 19:44:41 02/05/20 24 02/05/2024 CBC/C OMPLE TE BLD COUNT W/DIF F basophils, absolute count 0.01 x10'3 /uL 0.01-0 .08 Not Available [facility] (Lab) [address] [place], [address], 02/05/2024 19:44:41 02/05/20 24 02/05/2024 CBC/C OMPLE TE BLD COUNT W/DIF F immature granulocytes ,absolute 0.02 x10'3 /uL 0.00-0 .05 Not Available [facility] (Lab) [address] [place], [address], 02/05/2024 19:44:41 02/05/20 24 02/05/2024 CBC/C OMPLE TE BLD COUNT W/DIF F nucleated red blood cells 0.0 % -0 Not Available [facility] (Lab) [address] [place], [address], 02/05/2024 19:44:41 02/05/20 24 02/05/2024 CBC/C OMPLE TE BLD COUNT W/DIF F NRBC# 0.00 x10'3 /uL Not Available [facility] (Lab) [address] [place], [address], 02/05/2024 19:44:41 02/05/20 24 02/05/2024 BASIC METAB OLIC PANEL sodium 134 mmol/ L 137-14 5 low Not Available [facility] (Lab) [address] [place], [address], 02/05/2024 19:56:57 02/05/20 24 02/05/2024 BASIC METAB OLIC PANEL potassium 4.5 mmol/ L 3.5-5. 1 Not Available [facility] (Lab) [address] [place], [address], 02/05/2024 19:56:57 02/05/20 24 02/05/2024 BASIC METAB OLIC PANEL chloride 98 mmol/ L 98-107 Not Available [facility] (Lab) [address] [place], [address], 02/05/2024 19:56:57 02/05/20 24 02/05/2024 BASIC METAB OLIC PANEL carbon dioxide 28 mmol/ L 22-30 Not Available [facility] (Lab) [address] [place], [address], 02/05/2024 19:56:57 02/05/20 24 02/05/2024 BASIC METAB OLIC PANEL anion gap 12.5 mmol/ L 14-22 low Not Available [facility] (Lab) [address] [place], [address], 02/05/2024 19:56:57 02/05/20 24 02/05/2024 BASIC METAB OLIC PANEL glucose 184 mg/dL 70-99 high Not Available [facility] (Lab) [address] [place], [address], 02/05/2024 19:56:57 02/05/20 24 02/05/2024 BASIC METAB OLIC PANEL BUN 21 mg/dL 8-19 high Not Available [facility] (Lab) [address] [place], [address], 02/05/2024 19:56:57 02/05/20 24 02/05/2024 BASIC METAB OLIC PANEL creatinine 1.11 mg/dL 0.66-1 .25 Not Available [facility] (Lab) [address] [place], [address], 02/05/2024 19:56:57 02/05/20 24 02/05/2024 BASIC METAB OLIC PANEL GFR >60 Refer ence Range : Paxton ge GFR Healt hy Adult : >60 mL/mi n/1.7 3 m2 Chron ic Kidne y Disea se: 15-60 mL/mi n/1.7 3 m2 Kidne y Failu re: <15/m L/min /1.73 m2 www.n iddk. nih.g ov The MDRD study equat ion has not been valid ated in child chrissie <18 years of age; pregn ant women ; the elder ly >85 years of age; or in some racia l or ethni c subgr oups, such as Lady nics. Outsi de the valid ated saeed eters , estim ated GFR is less accur ate, requi ring clini judgm ent on a case- by-ca se basis . Clini inter preta tion for other races and ages must be made by the clini silas. The MDRD study equat ion has not been valid ated for the evalu ation of serum creat inine relat ed to nutri imani l statu s or medic ation usage . For perso ns <18 years of age, a pedia tric GFR calcu lator is avail able on the [facility] websi te: https ://patricia w.bishop lomas.o rg/pr ofess ional s/kdo qi/gf r_cal culat or Not Available [facility] (Lab) [address] [place], [address], 02/05/2024 19:56:57 02/05/20 24 02/05/2024 BASIC METAB OLIC PANEL calcium 9.5 mg/dL 8.4-10 .2 Not Available [facility] (Lab) [address] [place], [address], 02/05/2024 19:56:57 02/05/20 24 02/05/2024 LIPID PANEL cholesterol 121 mg/dL 140-19 9 low NIH DC NSUS RECOM MENDA TION FOR KEN STERO L: ADULT CHILD LOW RISK: <200 <170 BORDE RLINE : <200- 239 ----- HIGH RISK: >240 >200 Not Available [facility] (Lab) [address] [place], [address], 02/05/2024 19:57:03 02/05/20 24 02/05/2024 LIPID PANEL triglyceride s 155 mg/dL 0-150 high NIH DC NSUS REPOR T RECOM MENDA TION FOR TRIGL YCERI CAROLE: ADULT CHILD LOW RISK: <150 ----- BODER LINE: 150-1 99 ----- HIGH RISK: >200 ----- Not Available [facility] (Lab) [address] [place], [address], 02/05/2024 19:57:03 02/05/20 24 02/05/2024 LIPID PANEL HDL cholesterol 38 mg/dL 40- low Not Available [facility] (Lab) [address] [place], [address], 02/05/2024 19:57:03 02/05/2002/05/2024 LIPID PANEL LDL cholesterol, calculated 52 mg/dL 0-130 NIH DC NSUS REPOR T RECOM MENDA TIONS FOR LDL: ADULT CHILD LOW RISK <130 <110 (OPTI MAL LDL) <100 ----- BORDE RLINE : 130-1 59 ----- HIGH RISK: >160 >130 A TRIGL YCERI DE RESUL T >400 INVAL IDATE S THE CALCU LATIO N FOR LDL FRACT IONAT ION - THE LDL RESUL T WILL NOT BE REPOR MINNIE. Not Available [facility] (Lab) [address] [place], [address], 02/05/2024 19:57:03 02/05/20 24 02/05/2024 HEPAT IC/LI RE PANEL alkaline phosphatase 94 U/L 38-126 Not Available [facility] (Lab) [address] [place], [address], 02/05/2024 19:57:07 02/05/20 24 02/05/2024 HEPAT IC/LI RE PANEL alanine aminotransfe rase 26 U/L 0-50 Not Available [facility] (Lab) [address] [place], [address], 02/05/2024 19:57:07 02/05/20 24 02/05/2024 HEPAT IC/LI RE PANEL aspartate aminotransfe rase 29 U/L 15-46 Not Available [facility] (Lab) [address] [place], [address], 02/05/2024 19:57:07 02/05/20 24 02/05/2024 HEPAT IC/LI RE PANEL bilirubin, total 0.50 mg/dL 0.20-1 .30 Not Available [facility] (Lab) [address] [place], [address], 02/05/2024 19:57:07 02/05/20 24 02/05/2024 HEPAT IC/LI RE PANEL bilirubin, conjugated (direct) 0.00 mg/dL 0.00-0 .30 Not Available [facility] (Lab) [address] [place], [address], 02/05/2024 19:57:07 02/05/20 24 02/05/2024 HEPAT IC/LI RE PANEL biliurubin,u ncong. (indirect) 0.20 mg/dL 0.00-1 .1 Not Available [facility] (Lab) [address] [place], [address], 02/05/2024 19:57:07 02/05/20 24 02/05/2024 HEPAT IC/LI RE PANEL total protein 7.5 g/dL 6.3-8. 2 Not Available [facility] (Lab) [address] [place], [address], 02/05/2024 19:57:07 02/05/20 24 02/05/2024 HEPAT IC/LI RE PANEL albumin 4.3 g/dL 3.0-4. 4 Not Available [facility] (Lab) [address] [place], [address], 02/05/2024 19:57:07 02/05/20 24 02/05/2024 HEPAT IC/LI RE PANEL globulin 3.2 g/dL 2.6-4. 2 Not Available [facility] (Lab) [address] [place], [address], 02/05/2024 19:57:07 02/05/20 24 02/05/2024 HEPAT IC/LI RE PANEL A/G ratio 1.3 ratio 1.0-2. 0 Not Available [facility] (Lab) [address] [place], [address], 02/05/2024 19:57:07 02/05/20 24 02/05/2024 HEMOG LOBIN A1C HA1C 8.1 % 4.0-6. 0 high Diabe emerson Scree usman Crite anahi: <5.7% Consi stent with absen ce of diabe emerson 5.7-6 .4% Consi stent with incre ased risk for diabe emerson (pred iabet es) >OR=6 .5% Consi stent with diabe emerson REFER ENCE: Diabe emerson Care 2016, 39(Keane ppl.1 ):s13 -s22 Not Available [facility] (Lab) [address] [place], [address], 02/05/2024 22:28:46 02/05/20 24 02/12/2024 TESTO STERO NE, FREE+ TOTAL LC/MS testosterone , total, lc/MS 335.1 NG/dL 264.0- 916.0 This [facility] LC/MS -MS metho d is curre ntly certi fied by the CDC Hormo ne Stand ardiz ation Progr am (HoSt ). Adult male refer ence inter jalil is based on a popul ation of healt hy nonob lulú males (BMI <30) betwe en 19 and 39 years old. Noris mcdaniels, et.al . JCEM 2017, 102;1 161-1 173. PMID: 49966 103. Not Available [facility] (Lab) [address] [place], [address], 02/12/2024 09:13:39 02/05/20 24 02/12/2024 TESTO STERO NE, FREE+ TOTAL LC/MS testosterone , free 7.74 NG/dL 5.00-2 1.00 Not Available [facility] (Lab) [address] [place], [address], 02/12/2024 09:13:39 02/05/20 24 02/12/2024 TESTO STERO NE, FREE+ TOTAL LC/MS % free testosterone 2.31 % 1.50-4 .20 Perfo rmed at: [facility] - [facility] [place] [address] [facility] , [place] [address] Lab Direc tor: Malina miranda MD, Phone : [phone] Not Available [facility] (Lab) [address] [place], [address], 02/12/2024 09:13:39 02/26/20 24 02/26/2024 CBC/C OMPLE TE BLD COUNT W/DIF F white blood cells 6.8 x10'3 /uL 4.2-10 .8 Not Available [facility] (Lab) [address] [place], [address], 02/26/2024 19:56:55 02/26/20 24 02/26/2024 CBC/C OMPLE TE BLD COUNT W/DIF F red blood cells 4.08 x10'6 /uL 4.10-5 .80 low Not Available [facility] (Lab) [address] [place], [address], 02/26/2024 19:56:55 02/26/20 24 02/26/2024 CBC/C OMPLE TE BLD COUNT W/DIF F hemoglobin 12.3 g/dL 13.2-1 7.0 low Not Available [facility] (Lab) [address] [place], [address], 02/26/2024 19:56:55 02/26/20 24 02/26/2024 CBC/C OMPLE TE BLD COUNT W/DIF F hematocrit 36.6 % 39.3-5 0.0 low Not Available [facility] (Lab) [address] [place], [address], 02/26/2024 19:56:55 02/26/20 24 02/26/2024 CBC/C OMPLE TE BLD COUNT W/DIF F mean red cell volume 89.7 fL 80.0-9 7.0 Not Available [facility] (Lab) [address] [place], [address], 02/26/2024 19:56:55 02/26/20 24 02/26/2024 CBC/C OMPLE TE BLD COUNT W/DIF F mean red cell hemoglobin 30.1 pg 27.0-3 3.0 Not Available [facility] (Lab) [address] [place], [address], 02/26/2024 19:56:55 02/26/20 24 02/26/2024 CBC/C OMPLE TE BLD COUNT W/DIF F mean RBC HGB concentratio n 33.6 g/dL 31.0-3 6.0 Not Available [facility] (Lab) [address] [place], [address], 02/26/2024 19:56:55 02/26/20 24 02/26/2024 CBC/C OMPLE TE BLD COUNT W/DIF F red cell distribution width 13.6 % 11.8-1 5.5 Not Available [facility] (Lab) [address] [place], [address], 02/26/2024 19:56:55 02/26/20 24 02/26/2024 CBC/C OMPLE TE BLD COUNT W/DIF F platelets 157 x10'3 /uL 150-40 0 Not Available [facility] (Lab) [address] [place], [address], 02/26/2024 19:56:55 02/26/20 24 02/26/2024 CBC/C OMPLE TE BLD COUNT W/DIF F mean platelet volume 10.1 fL 9.0-12 .4 Not Available [facility] (Lab) [address] [place], [address], 02/26/2024 19:56:55 02/26/20 24 02/26/2024 CBC/C OMPLE TE BLD COUNT W/DIF F neutrophils 72.6 % 39.0-7 2.0 high Not Available [facility] (Lab) [address] [place], [address], 02/26/2024 19:56:55 02/26/20 24 02/26/2024 CBC/C OMPLE TE BLD COUNT W/DIF F lymphocytes 13.0 % 16.0-4 7.0 low Not Available [facility] (Lab) [address] [place], [address], 02/26/2024 19:56:55 02/26/20 24 02/26/2024 CBC/C OMPLE TE BLD COUNT W/DIF F monocytes 10.2 % 5.0-12 .0 Not Available [facility] (Lab) [address] [place], [address], 02/26/2024 19:56:55 02/26/20 24 02/26/2024 CBC/C OMPLE TE BLD COUNT W/DIF F eosinophils 3.5 % 1.0-7. 0 Not Available [facility] (Lab) [address] [place], [address], 02/26/2024 19:56:55 02/26/20 24 02/26/2024 CBC/C OMPLE TE BLD COUNT W/DIF F basophils 0.1 % 0.0-2. 0 Not Available [facility] (Lab) [address] [place], [address], 02/26/2024 19:56:55 02/26/20 24 02/26/2024 CBC/C OMPLE TE BLD COUNT W/DIF F immature granulocytes 0.6 % 0.00-0 .50 high Not Available [facility] (Lab) [address] [place], [address], 02/26/2024 19:56:55 02/26/2002/26/2024 CBC/C OMPLE TE BLD COUNT W/DIF F neutrophils, absolute count 4.96 x10'3 /uL 1.5-8. 0 Not Available [facility] (Lab) [address] [place], [address], 02/26/2024 19:56:55 02/26/20 24 02/26/2024 CBC/C OMPLE TE BLD COUNT W/DIF F lymphocytes, absolute count 0.89 x10'3 /uL 1.07-3 .43 low Not Available [facility] (Lab) [address] [place], [address], 02/26/2024 19:56:55 02/26/20 24 02/26/2024 CBC/C OMPLE TE BLD COUNT W/DIF F monocytes, absolute count 0.70 x10'3 /uL 0.29-0 .99 Not Available [facility] (Lab) [address] [place], [address], 02/26/2024 19:56:55 02/26/20 24 02/26/2024 CBC/C OMPLE TE BLD COUNT W/DIF F eosinophils, absolute count 0.24 x10'3 /uL 0.02-0 .53 Not Available [facility] (Lab) [address] [place], [address], 02/26/2024 19:56:55 02/26/20 24 02/26/2024 CBC/C OMPLE TE BLD COUNT W/DIF F basophils, absolute count 0.01 x10'3 /uL 0.01-0 .08 Not Available [facility] (Lab) [address] [place], [address], 02/26/2024 19:56:55 02/26/20 24 02/26/2024 CBC/C OMPLE TE BLD COUNT W/DIF F immature granulocytes ,absolute 0.04 x10'3 /uL 0.00-0 .05 Not Available [facility] (Lab) [address] [place], [address], 02/26/2024 19:56:55 02/26/20 24 02/26/2024 CBC/C OMPLE TE BLD COUNT W/DIF F nucleated red blood cells 0.0 % -0 Not Available [facility] (Lab) [address] [place], [address], 02/26/2024 19:56:55 02/26/20 24 02/26/2024 CBC/C OMPLE TE BLD COUNT W/DIF F NRBC# 0.00 x10'3 /uL Not Available [facility] (Lab) [address] [place], [address], 02/26/2024 19:56:55 02/26/20 24 02/26/2024 BASIC METAB OLIC PANEL sodium 134 mmol/ L 137-14 5 low Not Available [facility] (Lab) [address] [place], [address], 02/26/2024 20:42:30 02/26/20 24 02/26/2024 BASIC METAB OLIC PANEL potassium 4.0 mmol/ L 3.5-5. 1 Not Available [facility] (Lab) [address] [place], [address], 02/26/2024 20:42:30 02/26/20 24 02/26/2024 BASIC METAB OLIC PANEL chloride 97 mmol/ L 98-107 low Not Available [facility] (Lab) [address] [place], [address], 02/26/2024 20:42:30 02/26/20 24 02/26/2024 BASIC METAB OLIC PANEL carbon dioxide 27 mmol/ L 22-30 Not Available [facility] (Lab) [address] [place], [address], 02/26/2024 20:42:30 02/26/20 24 02/26/2024 BASIC METAB OLIC PANEL anion gap 14.0 mmol/ L 14-22 Not Available [facility] (Lab) [address] [place], [address], 02/26/2024 20:42:30 02/26/20 24 02/26/2024 BASIC METAB OLIC PANEL glucose 175 mg/dL 70-99 high Not Available [facility] (Lab) [address] [place], [address], 02/26/2024 20:42:30 02/26/20 24 02/26/2024 BASIC METAB OLIC PANEL BUN 26 mg/dL 8-19 high Not Available [facility] (Lab) [address] [place], [address], 02/26/2024 20:42:30 02/26/20 24 02/26/2024 BASIC METAB OLIC PANEL creatinine 1.29 mg/dL 0.66-1 .25 high Not Available [facility] (Lab) [address] [place], [address], 02/26/2024 20:42:30 02/26/20 24 02/26/2024 BASIC METAB OLIC PANEL GFR 54 Refer ence Range : Paxton ge GFR Healt hy Adult : >60 mL/mi n/1.7 3 m2 Chron ic Kidne y Disea se: 15-60 mL/mi n/1.7 3 m2 Kidne y Failu re: <15/m L/min /1.73 m2 www.n iddk. nih.g ov The MDRD study equat ion has not been valid ated in child chrissie <18 years of age; pregn ant women ; the elder ly >85 years of age; or in some racia l or ethni c subgr oups, such as Hispa nics. Outsi de the valid ated saeed eters , estim ated GFR is less accur ate, requi ring clini judgm ent on a case- by-ca se basis . Clini inter preta tion for other races and ages must be made by the clini silas. The MDRD study equat ion has not been valid ated for the evalu ation of serum creat inine relat ed to nutri imani l statu s or medic ation usage . For perso ns <18 years of age, a pedia tric GFR calcu lator is avail able on the [facility] websi te: https ://ww w.kid cesilia.o rg/pr ofess ional s/kdo qi/gf r_cal culat or Not Available [facility] (Lab) [address] [place], [address], 02/26/2024 20:42:30 02/26/20 24 02/26/2024 BASIC METAB OLIC PANEL calcium 9.6 mg/dL 8.4-10 .2 Not Available [facility] (Lab) [address] [place], [address], 02/26/2024 20:42:30 02/26/20 24 02/26/2024 IRON/ TIBC PANEL total iron binding capacity 261 mcg/d L 265-47 5 low Not Available [facility] (Lab) [address] [place], [address], 02/26/2024 20:55:05 02/26/20 24 02/26/2024 IRON/ TIBC PANEL % transferrin saturation 25 % 20-55 Not Available [facility] (Lab) [address] [place], [address], 02/26/2024 20:55:05 02/26/20 24 02/26/2024 IRON/ TIBC PANEL unsaturated iron bind capacity 195 mcg/d L 126-38 2 Not Available [facility] (Lab) [address] [place], [address], 02/26/2024 20:55:05 02/26/20 24 02/26/2024 IRON/ TIBC PANEL iron 66 mcg/d L 42-175 Not Available [facility] (Lab) [address] [place], [address], 02/26/2024 20:55:05 02/26/20 24 02/26/2024 TRUDY TIN ferritin 35 NG/mL 17.9-4 64 Not Available [facility] (Lab) [address] [place], [address], 02/26/2024 21:17:00 02/26/20 24 02/26/2024 VITAM IN B12 (DOC AKASH ) vb12 485 pg/mL 239-93 1 Not Available [facility] (Lab) [address] [place], [address], 02/26/2024 22:20:12 02/26/20 24 02/26/2024 FOLAT E, SERUM /PLAS MA folate >20.0 NG/mL 2.76-2 0.0 Not Available [facility] (Lab) [address] [place], [address], 02/26/2024 22:20:14 02/18/20 24 02/18/2024 US, duple x, carot id arter y No observ ation record ed. [address], [place], [address], 02/20/2024 12:51:48 04/13/20 24 04/13/2024 US, abdom en No observ ation record ed. [facility] [address] [place], [address], 05/05/2024 17:09:52 05/12/20 24 05/12/2024 XR, chest , 2 view No observ ation record ed. [facility] [address] [place], [address], 05/17/2024 14:46:02 Result Notes None recorded. Problems Name Problem SNOMED Code Status Onset Date Resolution Date Notes Provider Name and Address Organization Details Recorded Time Pain of left knee joint [id number] 07 Active 2022 Merari Adams MD [address], [place], [address] , [facility] 3 17:52:48 Acute sinusitis 23910578 Active 2022 MAICOL Díaz [address], [place], [address] , [facility] 3 09:49:18 Hyponatrem ia 40591598 Active 2022 Merari Adams MD [address], [place], [address] , [facility] 3 16:30:08 Constipati on 86836789 Active 2022 Merari Adams MD [address], [place], [address] , [facility] 3 18:07:04 Fatigue 48647995 Active 2022 Merari Adams MD [address], [place], [address] , [facility] 3 17:28:44 Erythrocyt e sedimentat ion rate above reference range 643716357 Active 2023 MD Natalie Martinez [address], [place], [address] , [facility] 4 12:27:45 Pain of left hip joint [id number] 00 Active 2023 MD [address], [place], [address] , [facility] 4 12:04:27 Vertigo 167428610 Active 2023 MD [address], [place], [address] , [facility] 4 16:14:25 Anemia 658487102 Active 2023 Merari Adams MD [address], [facility] [address], [place], [address] , [facility] 4 08:12:14 Carotid artery stenosis 78174171 Active 2023 Merari Adams MD [address], [address] [address], [place], [address] , [facility] 4 08:00:46 Serum creatinine above reference range 172390737 Active 2023 Merari Adams MD [address], [address] [address], [place], [address] , [facility] [employer] [facility] 4 19:12:38 Benign essential hypertensi on 7747835 Active Not Available [facility] 3 04:53:53 Dry skin 88210261 Active Not Available [facility] 3 04:53:53 Non-alcoho lic fatty liver 437636559 Active Not Available [facility] 3 04:53:53 Cellulitis and abscess of face 589166859 Active Not Available [facility] 3 04:53:53 Callosity 912528804 Active Not Available [facility] 3 04:53:53 Gastroesop hageal reflux disease 181574817 Active Not Available [facility] 3 04:53:53 Benign prostatic hyperplasi a 146727368 Active Not Available [facility] 3 04:53:53 Edema 383816100 Active Not Available [facility] 3 04:53:53 Type 2 diabetes mellitus without complicati on 218217914 Active Not Available [facility] 3 04:53:53 Depressive disorder 45936056 Active Not Available [facility] 3 04:53:53 Macerated skin 9516225 Active Not Available [facility] 3 04:53:53 Seasonal allergic rhinitis 368557881 Active Not Available [facility] 3 04:53:53 Sinusitis 82724982 Active Not Available [facility] 3 04:53:53 Contact dermatitis 98707209 Active Not Available [facility] 3 04:53:54 Seborrheic keratosis of scalp 820630950 Active Not Available [facility] 3 04:53:54 Hypogonadi sm 46760199 Active Not Available [facility] 3 04:53:54 Atrial fibrillati on 06023167 Active Not Available [facility] 3 04:53:54 Dysuria 65707437 Active 2021 Not Available [facility] of [facility] 3 04:53:54 Hyperlipid emia 33013377 Active Not Available [facility] of [facility] 3 04:53:54 Essential hypertensi on 28506771 Active 2018 Not Available [facility] of [facility] 3 04:53:54 Tinea pedis 8864651 Active Not Available [facility] of [facility] 3 04:53:54 Allergic rhinitis 93453660 Active Not Available [facility] of [facility] 3 04:53:54 Diabetes mellitus 15300857 Active Not Available [facility] 3 04:53:54 Abnormal liver function 90939572 Active Not Available [facility] 3 04:53:55 Skin lesion 82883502 Active Not Available [facility] 3 04:53:55 Problem Notes None recorded. Procedures Surgical History Date Name Laterality Status Provider Name and Address Organization Details Recorded Time 05/18/20 24 Cortisone Injection (Dequervains/ Greater Trochantric/ Lateral Epicondylitis/ Shoulder/ Subacromial Space/ Knee or Trigger Finger) completed EDWARDO Lui [address] [place] [address], [address] [address], [place], [address], [facility] [employer] 05/18/2024 12:29:50 01/13/20 24 Medicare Wellness CPT Code, subsequent completed Kavya Aldana RN [facility] [employer] 01/13/2024 15:59:28 10/14/19 24 Cortisone Injection (Dequervains/ Greater Trochantric/ Lateral Epicondylitis/ Shoulder/ Subacromial Space/ Knee or Trigger Finger) completed Merari Adams MD [address], [address], [place], [address], [facility] [employer] [facility] [employer] [facility] 10/14/2023 12:46:14 10/01/20 23 colonoscopy completed Merari Adams MD [address], [address], [place], [address], [employer] [facility] [employer] [facility] 10/14/2023 12:26:01 04/02/20 23 Cortisone Injection (Dequervains/ Greater Trochantric/ Lateral Epicondylitis/ Shoulder/ Subacromial Space/ Knee or Trigger Finger) completed Merari Adams MD [address] [facility], [address], [place], [address], [employer] [facility] [employer] [facility] 04/11/2023 12:08:40 07/25/20 21 ENDOSCOPY, NASAL/SINUS, W/ MAXILLARY ANTROSTOMY & TISSUE REMOVAL (SURG) completed Not Available [facility] 12/11/2022 05:05:12 nasal septoplasty completed Not Available [facility] 12/11/2022 04:43:22 nasal endoscopy with maxillary antrostomy completed Not Available [facility] 12/11/2022 04:43:22 Imaging Results Imaging Date Name Status LastModified by Organiz ation Details LastModified Time 02/18/2024 US, duplex, carotid artery completed [address], [place], [address], 02/20/2024 12:51:48 04/13/2024 US, abdomen completed [facility] [address] [place], [address], 05/05/2024 17:09:52 05/12/2024 XR, chest, 2 view completed [email or web address] [address] [place], [address], 05/17/2024 14:46:02 Procedure Notes None recorded. Medical Equipment None Reported. Allergies Allergen ID Allergen Name Allergen Category Reaction Reaction Severity Criticality Documentation Date Start Date Code Code System Note Provider Name and Address Organization Details Recorded Time 8411 Substance with sulfonami de structure and antibacte rial mechanism of action (substanc e) medicatio n Not available Not available Not available 12/11/2022 [id number] SNOMED Not Available [facility] 3 05:04:52 Medications Name Sig Start Date Stop Date Status Note LastModified by Organization Details LastModified Time losartan 50 mg tablet TAKE 2 TABLETS EVERY MORNING 09/07 completed Not Available Not Available Not Available BD Luer-Erin Syringe 3 mL 23 x 1 USE WITH TESTOSTER ONE INJECTION S active Not Available Not Available No t Available amoxicillin 500 mg capsule TAKE 1 CAPSULE BY MOUTH EVERY 6 HOURS active Not Available Not Available No t Available furosemide 40 mg tablet active Not Available Not Available Not Available pioglitazon e 15 mg tablet Take 1 tablet every day by oral route. 09/10 completed Not Available Not Available Not Available atorvastati n 40 mg tablet TAKE 1 TABLET EVERY DAY 02/09 completed Not Available Not Available Not Available lidocaine HCl 10 mg/mL (1 %) injection solution 2 ml injected in right knee x 1 11/10 completed [facility] [id number] [id number] Not Available Not Available Not Available carvedilol 25 mg tablet TAKE 1 TABLET BY MOUTH TWICE A DAY active Not Available Not Available No t Available nystatin 100,000 unit/mL oral suspension SWISH AND SPIT 5ML PO BID UNTIL ALL TAKEN active Not Available Not Available No t Available carvedilol 6.25 mg tablet TK 1 T PO BID 09/07 completed Not Available Not Available Not Available cefuroxime axetil 250 mg tablet 07/15 completed Not Available Not Available Not Available clindamycin HCl 300 mg capsule Take 1 capsule every 6 hours by oral route for 7 days. active Not Available Not Available No t Available azithromyci n 250 mg tablet TAKE 2 TABLETS BY MOUTH TODAY, THEN TAKE 1 TABLET DAILY FOR 4 DAYS DIRECTED active Not Available Not Available No t Available benzonatate 200 mg capsule 1 po TID prn cough active Not Available Not Available No t Available prednisone 20 mg tablet TAKE 2 TABLETS BY MOUTH EVERY DAY active Not Available Not Available No t Available penicillin V potassium 500 mg tablet 12/18 completed Not Available Not Available Not Available acetaminoph en 300 mg-codeine 30 mg tablet TAKE 1 TO 2 TABLETS BY MOUTH EVERY 4 TO 6 HOURS NEEDED FOR PAIN active Not Available Not Available No t Available ciprofloxac in 250 mg tablet TK 1 T PO Q 12 H FOR 7 DAYS 12/30 completed Not Available Not Available Not Available insulin syringe U-100 with needle 1 mL 29 gauge x 04/27 USE DIRECTED active Not Available Not Available No t Available triamcinolo ne acetonide 0.1 % topical cream APPLY A THIN LAYER TO THE AFFECTED AREA(S) BY TOPICAL ROUTE 2 TIMES PER DAY x 14 days 04/01 completed Not Available Not Available Not Available ketorolac 30 mg/mL (1 mL) injection solution 1 ml IM x 1 11/10 completed [facility] [phone] Not Available Not Available Not Available losartan 100 mg-hydrochl orothiazide 25 mg tablet TK 1 T PO QD 05/26 completed Not Available Not Available Not Available terbinafine HCl 250 mg tablet TK 1 T PO QD 07/10 completed Not Available Not Available Not Available amoxicillin 875 mg tablet Take 1 tablet every 12 hours by oral route for 14 days. active Not Available Not Available No t Available prednisolon e acetate 1 % eye drops,suspe nsion INT 1 DROP AEY BID UTD active Not Available Not Available No t Available tamsulosin 0.4 mg capsule TAKE ONE CAPSULE BY MOUTH ONCE DAILY active Not Available Not Available No t Available amlodipine 10 mg tablet TAKE 1 TABLET BY MOUTH EVERY DAY active Not Available Not Available No t Available glipizide ER 2.5 mg tablet, extended release 24 hr Take 1 tablet(s) every day by oral route. active Not Available Not Available No t Available triamcinolo ne acetonide 40 mg/mL suspension for injection 2 ml left knee x 1 2023 active Not Available Not Available Not Avai lable hydrocodone 7.5 mg-acetamin ophen 325 mg tablet TAKE 1 TABLET BY MOUTH EVERY 4 HOURS NEEDED 01/12 completed Not Available Not Available Not Available naproxen sodium 550 mg tablet TAKE 1 TABLET BY MOUTH EVERY 12 HOURS NEEDED 01/12 completed Not Available Not Available Not Available metformin 1,000 mg tablet TAKE 1 TABLET BY MOUTH TWICE A DAY active Not Available Not Available No t Available triamcinolo ne acetonide 0.1 % topical ointment APPLY A THIN LAYER TO THE AFFECTED AREA(S) BY TOPICAL ROUTE 2 TIMES PER DAY as needed active Not Available Not Available No t Available clotrimazol e-betametha sone 1 %-0.05 % topical cream APPLY TO THE AFFECTED AND SURROUNDI NG AREAS OF SKIN BY TOPICAL ROUTE 2 TIMES PER DAY IN THE MORNING AND EVENING FOR 2 WEEKS 07/09 completed Not Available Not Available Not Available BD Luer-Erin Syringe 3 mL 25 gauge x 1 active Not Available Not Available Not Available budesonide 0.5 mg/2 mL suspension for nebulizatio n 01/12 completed Not Available Not Available Not Available doxazosin 4 mg tablet TAKE 2 TABLETS BY MOUTH EVERY DAY 04/09 completed Not Available Not Available Not Available montelukast 10 mg tablet TAKE 1 TABLET BY MOUTH EVERY DAY 04/09 completed Not Available Not Available Not Available furosemide 20 mg tablet TAKE ONE TABLET BY MOUTH ONCE DAILY 07/09 completed Not Available Not Available Not Available azelastine 137 mcg (0.1 %) nasal spray [place] 2 sprays twice a day by intranasa l route. 07/31 completed Not Available Not Available Not Available Viagra 100 mg tablet TK 1 T PO 30 MINUTES PRIOR TO INTERCOUR SE. DO NOT EXCEED 1 T IN 24 H active Not Available Not Available No t Available testosteron e cypionate 200 mg/mL intramuscul ar oil Inject 0.3 mL every 72 hours by intramusc ular route for 90 days. 01/12 completed Not Available Not Available Not Available cefuroxime axetil 500 mg tablet TK 1 T PO BID 08/25 completed Not Available Not Available Not Available levofloxaci n 500 mg tablet TK 1 T PO Q 24 H 03/16 completed Not Available Not Available Not Available lovastatin 20 mg tablet Take 1 tablet every day by oral route. 07/09 completed Not Available Not Available Not Available methylpredn isolone 4 mg tablets in a dose pack TAKE 6 TABLETS ON DAY 1 DIRECTED ON PACKAGE AND DECREASE BY 1 TAB EACH DAY FOR A TOTAL OF 6 DAYS active Not Available Not Available No t Available cefdinir 300 mg capsule TAKE 1 CAPSULE BY MOUTH TWICE A DAY FOR 10 DAYS active Not Available Not Available No t Available losartan 100 mg tablet po Q daily active Not Available Not Available No t Available fluticasone propionate 50 mcg/actuati on nasal spray,suspe nsion SPRAY 2 SPRAYS INTO EACH NOSTRIL EVERY DAY active Not Available Not Available No t Available clotrimazol e 1 % topical cream APPLY TO THE AFFECTED AND SURROUNDI NG AREAS OF SKIN BY TOPICAL ROUTE 2 TIMES PER DAY IN THE MORNING AND EVENING prn active Not Available Not Available No t Available doxycycline hyclate 100 mg tablet Take 1 tablet twice a day by oral route for 30 days. active Not Available Not Available No t Available ipratropium bromide 21 mcg (0.03 %) nasal spray 2 sprays IEN bid prn active Not Available Not Available No t Available finasteride 5 mg tablet TAKE 1 TABLET BY MOUTH EVERY DAY active Not Available Not Available No t Available loratadine 10 mg tablet TAKE 1 TABLET BY MOUTH ONCE DAILY NEEDED active Not Available Not Available No t Available glipizide 5 mg tablet TAKE 2 TABLET BY MOUTH IN THE MORNING AND 1 TABLET IN THE EVENING A DAY WITH FOOD active Not Available Not Available No t Available griseofulvi n ultramicros ize 250 mg tablet 04/20 completed Not Available Not Available Not Available repaglinide 1 mg tablet TAKE 1 TABLET BY MOUTH THREE TIMES DAILY 01/12 completed Not Available Not Available Not Available amoxicillin 875 mg-potassiu m clavulanate 125 mg tablet TAKE 1 TABLET BY MOUTH EVERY 12 HOURS FOR 10 DAYS active Not Available Not Available No t Available escitalopra m 10 mg tablet TAKE 1 TABLET BY MOUTH EVERY DAY active Not Available Not Available No t Available OraMagicRx mouthwash for gargles three times a day with 10ml liguid. active Not Available Not Available No t Available rosuvastati n 20 mg tablet TAKE 1 TABLET BY MOUTH EVERY DAY active Not Available Not Available No t Available tadalafil 20 mg tablet TAKE 1 TABLET BY MOUTH ONCE DAILY active Not Available Not Available No t Available Cialis 5 mg tablet Take 1 tablet every day by oral route. active Not Available Not Available No t Available Cialis 10 mg tablet Take 1 tablet every day by oral route. 02/10 completed Not Available Not Available Not Available amlodipine 10 mg-atorvast atin 20 mg tablet Take 1 tablet every day by oral route. active Not Available Not Available No t Available metformin ER 1,000 mg tablet,exte nded release 24hr (osmotic) active Not Available Not Available No t Available nitrofurant oin monohydrate /macrocryst als 100 mg capsule Take 1 capsule every 12 hours by oral route for 10 days. 12/30 completed Not Available Not Available Not Available BD Integra Syringe 3 mL 23 gauge x 1 USE WITH TESTOSTER ONE INJECTION S 2022 active Not Available Not Available Not Avai lable aspirin 2012 active Not Available Not Available Not Avai lable lidocaine (PF) 10 mg/mL (1 %) injection solution 1 ml left knee x 1 2023 active Not Available Not Available Not Avai lable valsartan 320 mg-hydrochl orothiazide 25 mg tablet TAKE 1 TABLET BY MOUTH EVERY DAY active Not Available Not Available No t Available Januvia 100 mg tablet TAKE 1 TABLET BY MOUTH EVERY DAY active Not Available Not Available No t Available Fish Oil 1,000 mg capsule 1tab twice a day 2012 active Not Available Not Available Not Avai lable Janumet 1tablet every day at bedtime 2012 active Not Available Not Available Not Avai lable glipizide ER 2.5 mg 24 hr tablet,exte nded release Take 1 tablet every day by oral route. active Not Available Not Available No t Available azelastine 205.5 mcg (0.15 %) nasal spray U 2 SPRAYS IEN BID active Not Available Not Available No t Available Staxyn 10 mg disintegrat ing tablet Place 1 tablet every day by transling ual route. 05/06 completed Not Available Not Available Not Available Tradjenta 5 mg tablet Take 1 tablet every day by oral route in the morning. 07/16 completed Not Available Not Available Not Available OneTouch Verio test strips TEST BLOOD SUGAR TWICE A DAY active Not Available Not Available No t Available Multi Vitamin 1tablet every daily 2012 active Not Available Not Available Not Avai lable Invokana 100 mg tablet Take 1 tablet every day by oral route. 04/20 completed Not Available Not Available Not Available Invokamet 50 mg-1,000 mg tablet Take 1 tablet twice a day by oral route. 12/18 completed Not Available Not Available Not Available OneTouch Verio Flex Meter TEST DAILY active Not Available Not Available No t Available Fluzone High-Dose (PF) 180 mcg/0.5 mL intramuscul ar syringe active Not Available Not Available N ot Available Xhance 93 mcg/actuati on breath activated aerosol [place] 2 sprays twice a day by intranasa l route for 30 days. 01/12 completed Not Available Not Available Not Available Stevie BCise 2 mg/0.85 mL subcutaneou s auto-inject or 01/12 completed Not Available Not Available Not Available Xyosted 100 mg/0.5 mL subcutaneou s auto-inject or Inject 0.5 mL every week by subcutane ous route. 06/08 completed Not Available Not Available Not Available Fluad 65yr up(PF)45 mcg(15 mcgx3)/0.5 mL intramuscul ar syringe PHARMACIS T ADMINISTE RED IMMUNIZAT ION ADMINISTE RED AT TIME OF DISPENSIN G active Not Available Not Available No t Available Fluad Quad (6 5yr up)(PF) 60 mcg (15 mcg x 4)/0.5mL IM syringe PHARMACIS T ADMINISTE RED IMMUNIZAT ION ADMINISTE RED AT TIME OF DISPENSIN G active Not Available Not Available No t Available Sutab 1.479-0.188 -0.225 gram tablet USE DIRECTED BY DOCTOR 01/12 completed Not Available Not Available Not Available Ozempic 1 mg/dose (4 mg/3 mL) subcutaneou s pen injector INJECT 1 MG VIA SUBCUTANE OUS ROUTE EVERY WEEK 06/09 completed Not Available Not Available Not Available Paxlovid 300 mg (150 mg x 2)-100 mg tablets in a dose pack 01/12 completed Not Available Not Available Not Available Mounjaro 2.5 mg/0.5 mL subcutaneou s pen injector 0.5 ml sc qweek 02/26 completed Not Available Not Available Not Available Ozempic 0.25 mg or 0.5 mg (2 mg/3 mL) subcutaneou s pen injector INJECT 0.5 MG UNDER THE SKIN ONCE WEEKLY 01/12 completed Not Available Not Available Not Available Vitals Date Recorded Body height Body mass index (BMI) Body weight Body temperature Heart rate Oxygen saturation Oxygen saturation in Arterial blood by Pulse oximetry Systolic blood pressure Diastolic blood pressure Provider Name and Address Organization Details Last Updated DateTime 4 182.88 cm 30.7 kg/m2 047344. 88 g 97.5 [degF] 79 /min 97 % 97 % 160 mm[Hg] 80 mm[Hg] Kavya Aldana RN [facility] [employer] [facility] 4 16:03:19 Date Recorded Body height Provider Name an d Address Organization Details Last Updated DateTime 02/04/2024 182.88 cm Makenna Sanders RN [facility] [employer] [facility] 02/04/2024 15:24:44 Date Recorded Body height Provider Name an d Address Organization Details Last Updated DateTime 02/26/2024 182.88 cm Makenna Sanders RN [facility] [employer] [facility] 02/26/2024 11:11:32 Date Recorded Body height Body mass index (BMI) Body weight Body temperature Heart rate Oxygen saturation Oxygen saturation in Arterial blood by Pulse oximetry Systolic blood pressure Diastolic blood pressure Provider Name and Address Organization Details Last Updated DateTime 4 182.88 cm 30.1 kg/m2 466883. 51 g 98.7 [degF] 78 /min 93 % 93 % 166 mm[Hg] 84 mm[Hg] Kassy Mclaughlin RN [facility] [employer] [facility] 12:09:49 Social History Question Answer Notes LastModified by Organizat ion Details LastModified Time Tobacco Smoking Status Never Smoker Not Available [facility] 12/11/2022 04:41:28 What Is Your Level Of Alcohol Consumption? None [id number] Information not available 12/11/2022 In The 14 Days Before Symptom Onset, Have You Had Close Contact With A Laboratory-confirm ed COVID-19 While That Case Was Ill? No [id number] Information not available 12/11/2022 In The 14 Days Before Symptom Onset, Have You Had Close Contact With A Person Who Is Under Investigation For COVID-19 While That Person Was Ill? No [id number] Information not available 12/11/2022 What Was The Date Of Your Most Recent Tobacco Screening? 01/13/2024 Information not available 01/13/2024 Have You Recently Traveled Abroad? No [id number] Information not available 12/11/2022 Sex: Unknown Functional Status None recorded. Mental Status None recorded. Family History Relationship Description Onset Age of this Age Resolved Age Notes LastModified by Organization Details LastModified Time Father No current problems or disability [id number] Not available 12/11/2022 04:43:26 Mother No current problems or disability [id number] Not available 12/11/2022 04:43:26 Notes:CAD Medical History Condition Response SLEEP APNEA N MRSA N ALLERGIES/HAYFEVER N OTHER # 1 N LUNG DISEASE/DISORDER N INSOMNIA N RADIATION / CHEMOTHERAPY N COPD N HIGH CHOLESTEROL / HYPERLIPIDEMIA N Other # 2 N HYPERTHYROIDISM N NEUROLOGICAL PROBLEMS N BLOOD DISEASES N SURGERY N EAR OR HEARING PROBLEMS N HYPOTHYROIDISM N DEPRESSION (INCLUDING POST ) N HAVE YOU BEEN HOSPITALIZED OR SEEN IN [facility] IN THE PAST YEAR ? N STROKE/TIA N ULCERS N OBESITY N HISTORY WITH COMPLICATIONS WITH ANESTHES IA ? N ANEURYSM N USE OF BLOOD THINNERS N NO SIGNIFICANT PAST MEDICAL HISTORY N DIABETES, TYPE Y PARATHYROID DISEASE N ENT N SEASONAL ALLERGIES N HEARTBURN / REFLUX N HEPATITIS / LIVER DISEASE N SLEEP DISORDER N SEIZURES/EPILEPSY N HEADACHES/MIGRAINES N CHF N PACEMAKER N DIZZINESS Y AIDS/HIV N FRACTURES N HYPERTENSION Y CANCER: SPECIFY N BLOOD TRANSFUSION N ANESTHESIA COMPLICATIONS N ANEMIA/BLOOD DISORDER N CHRONIC EAR INFECTIONS N TUBERCULOSIS N Immunizations Vaccine Type Date Status Note Provider Nam e and Address Organization Details Recorded Time Influenza, high-dose, quadrivalent, PF 2 completed Not Available [facility] 12/11/2022 05:04:30 Influenza, high-dose, trivalent, PF 8 completed Not Available [facility] 12/11/2022 05:04:30 Pneumococcal conjugate PCV 13 8 completed Not Available [facility] of [facility] 12/11/2022 05:04:30 Influenza, high-dose, trivalent, PF 6 completed Not Available [facility] of [facility] 12/11/2022 05:04:31 Influenza, high-dose, trivalent, PF 5 completed Not Available On [facility] of [facility] 12/11/2022 05:04:31 Past Encounters Encounter ID Performer Location Encounter Start Date Encounter Closed Date Diagnosis/Indication Diagnosis SNOMED-CT Code Diagnosis ICD10 Code Diagnosis Note [id number] Merari Adams MD [facility] Primary Care [facility] [address] [facility] [place] [address] 01/02/2021 00:00:00 01/03/2021 12:40:19 [id number] [facility] [place] [address] [address] [place] [address] 01/10/2021 00:00:00 01/10/2021 11:15:18 [id number] Mainor Hays MD [facility] [place] [address] [place] [address] 01/25/2021 00:00:00 01/25/2021 10:57:23 [id number] [facility] [place] [address] [place] [address] 06/20/2021 00:00:00 06/20/2021 14:34:33 [id number] MD JACKELINE Townsend[facility] [place] [address] [place] [address] 06/28/2021 00:00:00 06/28/2021 15:42:49 [id number] MD BRITTA MartinezS[facility] [address] [place] [address] 07/16/2021 00:00:00 07/16/2021 17:49:00 [id number] MD JACKELINE Townsend[facility] [place] [address] [place] [address] 08/02/2021 00:00:00 08/02/2021 16:14:35 [id number] MD JACKELINE Townsend[facility] [place] [address] [place] [address] 08/23/2021 00:00:00 08/23/2021 16:18:26 [id number] Merari Adams MD [facility] [address] [place] [address] 10/16/2021 00:00:00 10/16/2021 18:22:03 [id number] MD JACKELINE Martinez[facility] [place] [address] [place] [address] 01/24/2022 00:00:00 02/03/2022 17:18:[id number] [facility] [place] [address] [place] [address] 04/04/2022 00:00:00 04/04/2022 10:50:[id number] [facility] [place] [address] [place] [address] 06/04/2022 00:00:00 06/11/2022 17:56:01 [id number] [facility] [place] [address] [place] [address] 07/17/2022 00:00:00 07/17/2022 14:05:[id number] [facility] [place] [address] [place] [address] 08/28/2022 00:00:00 09/10/2022 18:29:[id number]íaz [facility] [place] [address] [place] [address] 09/27/2022 00:00:00 09/27/2022 11:57:[id number] [facility] [place] [address] [place] [address] 12/30/2022 17:21:07 12/30/2022 18:34:01 Pain of left knee joint 2437278099 90378 M25.562 left knee injection donef/u in 4 weeks or sooner if needed [id number] Merari Adams MD [facility] [place] [address] [place] [address] 02/26/2023 14:59:54 02/26/2023 15:43:45 Diabetes mellitus 16583759 E11.9 stop glipizides tart mounjaro 2.5 mg sc qweek [id number] Merari Adams MD [facility] 101 [facility] 140 [place] [address] 04/02/2023 16:09:34 04/02/2023 17:13:10 Diabetes mellitus 75355636 E11.9 stay off glipizidei ncrease ozempic 0.5 Acute sinusitis 64835325 J01.90 Pain of le ft knee joint 5101585978 89970 M25.562 left knee injection donef/u in 4 weeks or sooner if needed Hyponatremia 20765402 E8 7.[id number] [facility] [address] [place] [address] 140 [facility] [place] [address] 05/14/2023 09:16:26 05/14/2023 09:42:44 Diabetes mellitus 88914061 E11.9 doing wellstay off glipizidei ncrease ozempic 1 mg sc qweekf/u in 4 weeks Hyponatremia 90674362 E8 7.[id number] [facility] [address] [place] [address] 140 [place] [address] 05/15/2023 14:59:24 09/03/2023 18:00:15 [id number] [facility] [address] [place] [address] 140 [place] [address] 09/15/2023 11:12:24 09/15/2023 15:05:[id number] [facility] [address] [place] [address] 140 [place] [address] 10/14/2023 12:15:06 10/14/2023 13:00:17 Screening for malignant neoplasm of prostate 974910286 Z12.5 Erythrocyt e sedimentation rate above reference range 852061112 R70.0 Pain of le ft knee joint 6557585958 66203 M25.562 left knee injection donef/u in 4 weeks or sooner if needed [id number] Merari Adams MD [facility] [address] [facility] [address] [place] [address] 01/13/2024 15:55:06 01/13/2024 16:43:06 Adult health examination 723448818 Z00.00 PSA normal 11/05check fasting labscolono scopy 10/01/23, february repeat 2025prevna r 13 given 2018recomm end flu yearlyreco mmend covid boosterrec ommend shingrix vaccine series Vertigo 804370527 R42 check carotid UScheck labs reviewed s/s that warrant urgent/ancelmo rgent eval in meantime Acute sinusitis 04245735 J01.90 call/retur n if no improvemen t in 1-2 days or sooner if neededrevi ewed s/s that warrant urgent/ancelmo rgent eval in meantime Atrial fibrillation 4943 6004 I48.91 stable Benign ess ential hypertension 3583719 I10 stable Benign pro static hyperplasia 054595288 N40.0 PSA normal 11/05 Diabetes mellitus 456075 09 E11.9 stableon ARB and statin Hyperlipidemia 67479223 E78.5 Z79.899 stable Hypogonadism 77798634 E2 9.1 stable [id number] Merari Adams MD [facility] Primary Care [facility] [address] [facility] [address] [facility] [place] [address] 02/04/2024 14:31:19 02/04/2024 16:04:[id number] [facility] Primary Care [facility] [address] [facility] [address] [place] [address] 02/05/2024 09:18:30 02/05/2024 09:41:[id number] [facility] [address] [facility] [address] [place] [address] 02/26/2024 11:10:18 02/26/2024 11:31:[id number] [facility] Primary Care [facility] [address] [facility] [address] [place] [address] 05/18/2024 12:03:14 05/18/2024 12:39:17 Pain of left knee joint 2102325610 74126 M25.562 -ROM and strength are intact with pain-left knee injection given Type 2 kristen betes mellitus without complication 387442941 E11.9 currently taking metformin, januvia, and glipizides cheduled to see endocrinol ogalirio in August Health Concerns Section Related Observation LastModified by Organization Detai ls LastModified Time None Recorded Concern Status LastModified by Organization Details LastModified Time None Recorded Advance Directives Directive None Recorded Payers Encounter Date Sequence Insurance Name Policy Number Policy East Covered Member ID East Member ID Guarantor Name 01/13/2024 1 [employer] (MEDICARE REPLACEMENT HMO) [id number] L Trevor Aldana [id number] Trevor Aldana 02/04/2024 1 [employer] (MEDICARE REPLACEMENT HMO) [id number] L Trevor Aldana [id number] Trevor Aldana 02/05/2024 1 [employer] (MEDICARE REPLACEMENT HMO) [id number] L Trevor Aldana [id number] Trevor Aldana 02/26/2024 1 [employer] (MEDICARE REPLACEMENT HMO) [id number] L Trevor Aldana [id number] Trevor Aldana 05/18/2024 1 [employer] (MEDICARE REPLACEMENT HMO) [id number] L Trevor Aldana [id number] Trevor Aldana Notes Date Note Type Note Provider Name and Address Organization Details Recorded Time 01/13/2024 text/html Here for keyla s examHome blood pressure readings are normalHome blood sugars are excellent Having some vertigo, not sure if it is due to neck because he has had some neck pain. He feels like he is spinning. Happens randomly, has been going on for 6 weeks or so, happens a few times per day, can last a few seconds then resolves. Merari Adams MD [address], [place], [address], [place] - [facility] [employer] 01/13/2024 19:29:13 05/18/2024 text/html pt is here for knee injection EDWARDO Lui [address], [facility] [address], [place], [address], [place] - [facility] 05/18/2024 12:47:07
--- OUTSIDE RECORDS SUMMARY | 2025-02-18 11:42 | XMS_ITS | Clinical Summary ---
Author Organization [facility] Facility Address [address] [place] [id number] Care Team Providers Care Senior Bi Developer Name Role Phone Unavailable Primary Care Provider Unavailabl e Allergies Active Allergy Reactions Criticality Noted Date Comments Sulfa Antibiotics Swelling 03/13/2020 Medications acetaminophen-c odeine (TYLENOL with CODEINE #3) 300-30 MG per tablet TAKE 1 TO 2 TABLETS BY MOUTH EVERY 4 TO 6 HOURS NEEDED FOR PAIN Active amLODIPine (NORVASC) 10 MG tablet Take 1 tablet by mouth 1 (one) time each day Active carvedilol (COREG) 25 MG tablet Take 1 tablet by mouth in the morning and 1 tablet in the evening. Take with meals. Active escitalopram (LEXAPRO) 10 MG tablet Take 1 tablet by mouth 1 (one) time each day Active finasteride (PROSCAR) 5 MG tablet Take 1 tablet by mouth 1 (one) time each day Active fluticasone (FLONASE) 50 MCG/ACT nasal spray Administer 2 sprays into each nostril 1 (one) time each day Active glipiZIDE (GLUCOTROL) 10 MG tablet Take 20 mg by mouth 1 (one) time each day in the morning 1 TAB IN THE PM. Active metFORMIN (GLUCOPHAGE) 1000 MG tablet Take 1 tablet by mouth in the morning and 1 tablet in the evening. Take with meals. Active montelukast (SINGULAIR) 10 MG tablet Take 1 tablet by mouth 1 (one) time each day Active rosuvastatin (CRESTOR) 20 MG tablet Take 1 tablet by mouth 1 (one) time each day Active SITagliptin (Januvia) 100 MG tablet Take 1 tablet by mouth 1 (one) time each day Active valsartan-hydro CHLOROthiazide (DIOVAN-HCT) 320-25 MG per tablet Take 1 tablet by mouth 1 (one) time each day Active aspirin 325 MG EC tablet Take 325 mg by mouth 1 (one) time each day Active omega-3 (FISH OIL) 1000 MG capsule Take 1,000 mg by mouth in the morning and 1,000 mg in the evening. Active omeprazole (PriLOSEC) [address] capsule Take 40 mg by mouth 1 (one) time each day Do not crush or chew. Active Active Problems Problem Noted Date Diagnosed Date Proteinuria 05/06/2024 Stage 3a chronic kidney disease 03/18/2024 Left ventricular hypertrophy 03/18/2024 Benign prostatic hyperplasia 03/18/2024 Atrial fibrillation 03/10/2024 Type 2 diabetes mellitus without complication Non-alcoholic fatty liver 03/10/2024 Hyperlipidemia 03/10/2024 Edema 03/10/2024 Carotid artery stenosis 02/19/2024 Anemia 02/18/2024 Hyponatremia 04/02/2023 Dysuria 09/26/2022 Benign essential hypertension 05/05/2019 Resolved Problems Problem Noted Date Diagnosed Date Resolved Date Diabetes mellitus 03/10/2024 03/18/2024 Immunizations Immunization Administration Dates Next Due Influenza Split High Dose Pr eservative Free IM 07/15/2018,09/17/2016,07/20/2015 Influenza, Unspecified 07/17/2022 Pneumococcal Conjugate 13-Valent 04/01/2018 Family History Medical History Relation Comments Heart disease Father Cancer Mother Hypertension Mother Relation Status Comments Father Mother Social History Tobacco Use Types Packs/Day Years Used Date Smoking Tobacco: Former Cigarettes Smokeless Tobacco: Never Alcohol Use Standard Drinks/Week Comments Not Currently 0 (1 standard drink = 0.6 oz pur e alcohol) Sex and Gender Information Value Date Recorded Sex Assigned at Not on file Legal Sex Male 12:44 PM EDT Gender Identity Not on file Sexual Orientation Not on file Last Filed Vital Signs Vital Sign Reading Time Taken Comments Blood Pressure 116/70 05/06/2024 11:49 AM CDT Pulse 78 05/06/2024 11:49 AM CDT Temperature 36.6 C (97.8 F) 05/06/2024 11:49 AM CDT Respiratory Rate 18 05/06/2024 11:49 AM CDT Oxygen Saturation 96% 05/06/2024 11:49 AM CDT Inhaled Oxygen Concentration - - Weight 103 kg (226 lb) 05/06/2024 11:49 AM CDT Height 180.3 cm (5' 11 ) 05/06/2024 11:49 AM CDT Body Mass Index 31.52 05/06/2024 11:49 AM CDT Plan of Treatment Health Maintenance Due Date Last Done Comments Pneumococcal Vaccine: 50+ Years (2 of 2 - PPSV23) 05/27/2018 04/01/2018 Diabetes: Ophthalmology Exam 03/09/2024 Diabetes: Pedal Pulse Checked 03/09/2024 Diabetes: Sensory Foot Exam 03/09/2024 Diabetes: Visual Foot Exam 03/09/2024 Diabetes: Hemoglobin A1C 08/03/2024 05/03/2024, 01/12 Influenza Vaccine (Season Ended) 2025 07/17/2022, 07/15/2018, 09/17/2016, Additional history exists Hepatitis B Vaccine Aged Out No longe r eligible based on patient's age to complete this topic Procedures Procedure Name Priority Date/Time Associated Diagnosis Comments HEMOGLOBIN A1C Routine 05/03/2024 7:41 AM CDT from Last 3 Months or Most Recently Relevant to Health Maintenance Results * (ABNORMAL) Hemoglobin A1c (05/03/2024 7:41 AM CDT) Hemoglobin A1C 8.2(H) <5.7 % of total Hgb See order comments Comment: For someone without known diabetes, a hemoglobin A1c value of 6.5% or greater indicates that they may have diabetes and this should be confirmed with a follow-up test. For someone with known diabetes, a value <7% indicates that their diabetes is well controlled and a value greater than or equal to 7% indicates suboptimal control. A1c targets should be individualized based on duration of diabetes, age, comorbid conditions, and other considerations. Currently, no consensus exists regarding use of hemoglobin A1c for diagnosis of diabetes for children. This test was performed on the [employer] amber c503 platform. Effective 12/29/23, a change in test platforms from the [employer] to the [employer]ber c503 may have shifted HbA1c results compared to historical results. Based on laboratory validation testing conducted at [facility], the [employer] platform relative to the [employer] platform had an average increase in HbA1c value of < or = 0.3%. This difference is within accepted variability established by the National Glycohemoglobin Standardization Program. Note that not all individuals will have had a shift in their results and direct comparisons between historical and current results for testing conducted on different platforms is not recommended. 05/03/2024 7:41 AM CDT 05/03/2024 7:41 AM CDT Narrative [facility] - 05/06/2024 1:40 PM CDT FASTING:YES FASTING: YES Resulting Agency Comment Performing Organization Information: Site ID: Name: [id number] Address: [address] [place] [address] Director: Marlene Doty us Ranjit Knox MD LAB BLOOD ORDERABLES Final R esult [facility] See order comments [place] [address] from Last 3 Months or Most Recently Relevant to Health Maintenance [facility] [id number] Advance Directives Documents on File Type Date Recorded 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
--- OUTSIDE RECORDS SUMMARY | 2025-02-18 11:42 | XMS_ITS | Clinical Summary ---
Author Organization [facility] Address [address] [place] [address] Care Team Providers [employer] Supervisor Name Role Phone Art Trevino MD Primary Care Provider [phone] Allergies Active Allergy Reactions Criticality Noted Date Comments Tirzepatide Other (See comments) 01/19/2025 GI Upset Semaglutide Other (See comments) Medium 01/19/2025 GI Upset Sulfa (Sulfonamide Antibiotics) Swollen tongue Reaction: TONGUE SWELLING, , Medications carvedilol (COREG) 25 mg tablet TK 1 T PO BID 0 8 Active fluticasone (FLONASE) 50 mcg/actuation nasal spray SHAKE LQ AND U 2 SPRAYS IEN QD 4 8 Active doxazosin (CARDURA) 4 mg tablet 8 Active metFORMIN (GLUCOPHAGE) 1,000 mg tablet 8 Active finasteride (PROSCAR) 5 mg tablet 8 Active valsartan-hydroc hlorothiazide (DIOVAN-HCT) 320-25 mg per tablet Take 1 tablet by mouth daily Active omeprazole (PriLOSEC) 20 mg capsule Take 1 capsule (20 mg total) by mouth daily Active aspirin 325 mg tablet Take 1 tablet (325 mg total) by mouth daily Active qoxop-0t-gft-epa -fish oil 300-1,000 mg capsule Take by mouth Active rosuvastatin (CRESTOR) 20 mg tablet Take 1 tablet (20 mg total) by mouth daily Active amLODIPine (NORVASC) 10 mg tablet Take 1 tablet (10 mg total) by mouth daily Active dapagliflozin propanediol (FARXIGA) 10 mg tablet 1 tablet (10 mg total) Active escitalopram (LEXAPRO) 10 mg tablet Take 1 tablet (10 mg total) by mouth daily Active azelastine (ASTELIN) 137 mcg (0.1 %) nasal spray Administer 1 spray into each nostril 2 (two) times a day Use in each nostril as directed Active SITagliptin phosphate (Januvia) 100 mg tabletIndication s:type 2 diabetes mellitus Take 1 tablet (100 mg total) by mouth daily 90 tablet 3 5 12/22/19 26 Active glipiZIDE (GLUCOTROL) 10 mg tablet TAKE 2 TABLETS BY MOUTH IN THE MORNING AND TAKE 1 TABLET BY MOUTH WITH SUPPER 5 Active Active Problems Problem Noted Date Diagnosed Date Type 2 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 A1c near goal; improved from 8.2% 10/14/24 to now 7.3%. Will send me a Shibumit if he'd like for me to send in the low dose of Trulicity 0.75mg. May need to start long acting insulin as you cannot tolerate the GLP1 (Serge & Caitie). Discussed trying Trulicity to see if less side effects. Watch your snacks: decrease your triscuits & the drumsticks. Current medications: Metformin 1000mg twice daily with meals Glipizide 20mg in morning & 10 mg with dinner Januvia 100mg daily DM eye exam fall 2023 at [facility]. Letter sent to get copy of report. Will update labs today. Verified that he uses [facility]. Aware to check results/results letter in [facility]. Will contact by phone if needed. Discussed with Trevor Aldana: Strive for regular exercise (30min most days) and diet (get at least 4-5 servings of fruit and veggies daily, avoid processed foods, increase lean protein intake and decrease carb portions as well as fruit juices, regular soda & desserts). Watch carbs and simple sugars. Check the blood sugar: daily. Check the feet daily for skin breakdown and infection. Assessment & Plan (10/14/2024 11:19 AM HADOOP APPLICATION DEVELOPER): Chronic, uncontrolled but stable Hemoglobin A1c 8.2%, goal A1c at least less than 7.5% without hypoglycemia Counseled on diet and exercise Patient willing to try another GLP 1 agonist at this time Start Mounjaro 2.5 mg subQ weekly ( discussed mechanism of action, side effects and benefits ) Stop Januvia Advised patient to work on resistance training exercises Continue current dose of metformin and glipizide Advised to cut back on glipizide if having low blood sugars We will try to obtain patient recent eye exam copy Daily foot care Follow-up in 3 months Hyperlipidemia associated with type 2 diabetes usman michelle 10/14/2024 Assessment & Plan (01/19/2025 2:21 PM CDT): Chronic problem; at goal. Currently taking Rosuvastatin 20mg. Last lipid panel: 05/03/24 LDL=56, KZ=178. Assessment & Plan (10/14/2024 11:19 AM HADOOP APPLICATION DEVELOPER): Chronic, stable Continue rosuvastatin Hypertension associated with diabetes 10/14/2024 Assessment & Plan (01/19/2025 2:21 PM CDT): Chronic problem. Controlled on current carvedilol 25mg bid, valsartan-HCTZ 320- 25mg daily, amlodipine 10mg daily Assessment & Plan (10/14/2024 11:19 AM HADOOP APPLICATION DEVELOPER): Chronic, well controlled Continue amlodipine, valsartan/hydrochlorothiazide Facial pressure 08/04/2018 Chronic sinusitis 08/04/2018 Deviated nasal septum 08/04/2018 Shortness of breath 02/26/2014 Overview (01/16/2017): SOB (shortness of breath) Cardiac tamponade 02/26/2014 Overview (01/16/2017): Cardiac tamponade Paroxysmal atrial fibrillation 02/26/2014 Overview (01/16/2017): AF (paroxysmal atrial fibrillation) Encounters Date Type Department Care Team Description 01/27/2025 Telephone [facility] Diabetes and Endocrinology [address] [place] [address] [phone] Stephanie Hooker NP Request OV 01/27/2025 Orders Only [facility] Diabetes and Endocrinology [address] [place] [address] [phone] Sarath Jerome MD 01/20/2025 Orders Only [facility] Diabetes and Endocrinology [address] [place] [address] [phone] Sarath Jerome MD 01/20/2025 Results [place] [facility] [id number] [place] [phone] Efe Lara MD 01/19/2025 3:00 PM CDT Lab [facility] Outpatient Lab at [address] [phone] Hyperlipidemia associated with type 2 diabetes mellitus (HCC) (Primary Dx) 01/19/2025 2:59 PM CDT - 01/19/2025 11:59 PM CDT Hospital Encounter [facility] [id number] [place] [id number] Type 2 diabetes mellitus with stage 2 chronic kidney disease, without long-term current use of insulin (HCC); Hypertension associated with diabetes (HCC); Hyperlipidemia associated with type 2 diabetes mellitus (HCC) Discharge Disposition: Discharge to home or self care 01/19/2025 2:00 PM CDT Office Visit [facility] Diabetes and Endocrinology [address] [place] [address] [phone] Stephanie Hooker NP Type 2 diabetes mellitus with stage 2 chronic kidney disease, without long-term current use of insulin (HCC) (Primary Dx); Hypertension associated with diabetes (HCC); Hyperlipidemia associated with type 2 diabetes mellitus (HCC) 01/17/2025 Telephone [facility]) - [facility] [address] [facility] [address] [place] [address] [place] [address] Tita Rice MS 01/14/2025 Telephone [facility] Diabetes and Endocrinology [address] [place] [phone] Efe Lara MD request to pcp for insurance referral 12/17/2024 [facility]phone [facility] [id number] [place] [address] [address] [place] [address] Efe Lara MD from Last 3 Months Immunizations Immunization Administration Dates Next Due Pfizer SARS-CoV-2 Monovalent Vaccination (12+ Yrs) HOFFMAN-READY TO USE 2022 Surgical History Surgery Date Site/Laterality Comments KNEE SURGERY Knee surgery TONSILLECTOMY Tonsillectomy HERNIA REPAIR Herniorrhaphy Medical History Medical History Date Comments Hypertension Hypertension Hx Other Medical Dyslipidemia Hx Other Medical Diabetes Type I I Hx Other Medical 2007 Paroxysmal AF H/O seasonal allergies Diabetes (HCC) Family History Medical History Relation Name Comments Coronary artery disease Father Alzheimer's disease Mother Breast cancer Mother Relation Name Status Comments Father Mother Social History Tobacco Use Types Packs/Day Years Used Date Smoking Tobacco: Former Cigarettes Q uit: 10/13/1979 Alcohol Use Standard Drinks/Week Comments Yes 0 (1 standard drink = 0.6 oz pur e alcohol) Sex and Gender Information Value Date Recorded Sex Assigned at Not on file Legal Sex Male 12:21 PM HADOOP APPLICATION DEVELOPER Gender Identity Not on file Sexual Orientation Not on file Obstetrics History Last Filed Vital Signs Vital Sign Reading Time Taken Comments Blood Pressure 114/60 01/19/2025 2:06 PM CDT Pulse 60 01/19/2025 2:06 PM CDT Temperature - - Respiratory Rate 18 01/19/2025 2:06 PM CDT Oxygen Saturation - - Inhaled Oxygen Concentration - - Weight 95.7 kg (211 lb) 01/19/2025 2:06 PM CDT Height 182.9 cm (6' 0.01 ) 01/19/2025 2:06 PM CD T Body Mass Index 28.61 01/19/2025 2:06 PM CDT Plan of Treatment Health Maintenance Due Date Last Done Comments Depression Screening 1945 Fall Risk Assessment 1945 Hepatitis C Screening 1945 DTaP/Tdap/Td Vaccine (1 - Tdap) 1958 Hepatitis B Screening 1965 Zoster Vaccine (1 of 2) 1997 Abdominal Aortic Aneurysm (A AA) Screen 2012 Well Visit 65+ 2012 Pneumococcal vaccine 65+ (2 of 2 - PPSV23) 05/27/2018 04/01/2018 Covid-19 Vaccine (5 - 2023-2 5 season) 2024 2022, 09/10/2021, 12/29/2020, Additional history exists Influenza Vaccine (Season Ended) 2025 07/17/2022, 07/16/2021, 07/05/2020, Additional history exists Hemoglobin A1C 07/21/2025 01/19/2025, 10/14/2024 Dilated Eye Exam 08/25/2025 08/25/2024 Foot Exam 10/14/2025 10/14/2024 Albumin Creatinine Ratio, Urine 01/19/2026 Lipid Panel 01/19/2026 01/19/2025, 04/13, 05/03/2024 eGFR 01/19/2026 01/19/2025, 05/03/2024 Procedures Procedure Name Priority Date/Time Associated Diagnosis Comments EGFR Routine 01/19/2025 2:59 PM CDT Type 2 diabetes mellitus with stage 2 chronic kidney disease, without long-term current use of insulin (HCC) Hyperlipidemia associated with type 2 diabetes mellitus (HCC) Hypertension associated with diabetes (HCC) LIPID PANEL Routine 01/19/2025 2:59 PM CDT Type 2 diabetes mellitus with stage 2 chronic kidney disease, without long-term current use of insulin (HCC) Hyperlipidemia associated with type 2 diabetes mellitus (HCC) COMPREHENSIVE METABOLIC PANEL Routine 01/19/2025 2:59 PM CDT Type 2 diabetes mellitus with stage 2 chronic kidney disease, without long-term current use of insulin (HCC) Hyperlipidemia associated with type 2 diabetes mellitus (HCC) Hypertension associated with diabetes (HCC) ALBUMIN CREATININE RATIO, URINE Routine 01/19/2025 2:59 PM CDT Type 2 diabetes mellitus with stage 2 chronic kidney disease, without long-term current use of insulin (HCC) Hypertension associated with diabetes (HCC) POCT GLUCOSE Routine 01/19/2025 2:10 PM CDT Type 2 diabetes mellitus with stage 2 chronic kidney disease, without long-term current use of insulin (HCC) POCT HEMOGLOBIN A1C Routine 01/19/2025 2 :10 PM CDT Type 2 diabetes mellitus with stage 2 chronic kidney disease, without long-term current use of insulin (HCC) DIABETES EYE EXAM Routine 08/25/2024 7:17 AM HADOOP APPLICATION DEVELOPER from Last 3 Months or Most Recently Relevant to Health Maintenance Results * eGFR (01/19/2025 2:59 PM CDT) eGFR 68 >=60 mL/min/1. 73 m2 Comment: Interpretive Data Reference Interval Normal >/= 90 mL/min/1.73m2 Mildly decreased* 60 - 89 mL/min/1.73m2 Mildly to moderately decreased 45 - 59 mL/min/1.73m2 Moderately to severely decreased 30 - 44 mL/min/1.73m2 Severely decreased 15 - 29 mL/min/1.73m2 Kidney Failure < 15 mL/min/1.73m2 *Relative to young adult level Estimated glomerular filtration rate is determined by the 2020 CKD-EPI equation recommended by the National Kidney Foundation (A Unifying Approach to GFR Estimation: Recommendations of the NKF-ASK Task Force on Reassessing the Inclusion of Race in Diagnosing Kidney Disease, JASN 2020). The CKD-EPI equation should not be used for patients with unstable renal function and has not been validated in children and those over 70. Current interpretive data was last reviewed 2021. Blood 01/19/2025 2:59 PM CDT 01/19/2025 9:23 PM CDT us Efe Laurent MD LAB BLOOD ORDERABLE S Final Result [facility] [address] [place] [address] * Albumin Creatinine Ratio, Urine (01/19/2025 2:59 PM CDT) Albumin Ur <12.0 mg/L Comment: Interpretive Data No reference range established. Current interpretive data was last revised 2019. Creatinine Ur 42.8 mg/dL [facility] Comment: Interpretive Data No reference range established. Current interpretive data was last revised 2019. Albumin Creatinine Ratio, Ur <28 1 - 29 mg/g [facility] Urine 01/19/2025 2:59 PM CDT 01/19/2025 9:18 PM CDT Efe Laurent MD LAB URINE ORDERABLE S Final Result [facility] [address] [place] [address] * (ABNORMAL) Lipid panel (01/19/2025 2:59 PM CDT) Cholesterol 122 30 - 199 mg/dL Comment: Interpretive Data Ages < or = 19 years Acceptable: <170 mg/dL Borderline high: 170-199 mg/dL High: >or= 200 mg/dL Ages > or = 20 years Desirable: <200 mg/dL Borderline high: 200-239 mg/dL High: >or= 240 mg/dL Literature References: 1. Expert Panel on Integrated Guidelines for Cardiovascular Health and Risk Reduction in Children and Adolescents. Pediatrics 2011;128:S213 2. NCEP Expert Panel. Circulation 2004;110:227 Current Interpretive Data was last revised on 2018. Triglycerides 173(H) <=149 mg/dL [facility] Comment: Interpretive Data Ages < or = 9 years Acceptable: <75 mg/dL Borderline high: 75-99 mg/dL High: >or= 100 mg/dL Ages 10 to 20 years Acceptable: <90 mg/dL Borderline high: 90-129 mg/dL High: >or= 130 mg/dL Ages > or = 20 years Desirable: <150 mg/dL Borderline high: 150-199 mg/dL High: 200-499 mg/dL Very high: >or= 499 mg/dL Literature References: 1. Expert Panel on Integrated Guidelines for Cardiovascular Health and Risk Reduction in Children and Adolescents. Pediatrics 2011;128:S213 2. NCEP Expert Panel. Circulation 2004;110:227 Current Interpretive Data was last revised on 2018. HDL 39(L) >=40 mg/dL [facility] Comment: Interpretive Data Ages < or = 19 years Acceptable: >45 mg/dL Borderline low: 40-45 mg/dL Low: <40 mg/dL Ages > or = 20 years Desirable: >or= 60 mg/dL Low: <40 mg/dL Literature References: 1. Expert Panel on Integrated Guidelines for Cardiovascular Health and Risk Reduction in Children and Adolescents. Pediatrics 2011;128:S213 2. NCEP Expert Panel. Circulation 2004;110:227 Current Interpretive Data was last revised on 2018. LDL, calculated 54 <=129 mg/dL [facility] Comment: Interpretive Data Ages < or = 19 years Acceptable: <110 mg/dL Borderline high: 110-129 mg/dL High: >or= 130 mg/dL Ages > or = 20 years Optimal: <100 mg/dL Near optimal: 100-129 mg/dL Borderline high: 130-159 mg/dL High: >160 mg/dL Calculated using the Kemar LDL-C estimating equation. This equation was implemented on 2024. Prior to this date LDL-C was estimated using the Friedewald equation. Literature References: 1. Expert Panel on Integrated Guidelines for Cardiovascular Health and Risk Reduction in Children and Adolescents. Pediatrics 2011;128:S213 2. NCEP Expert Panel. Circulation 2004;110:227 3. Kemar Venegas et al. BRYANNA Cardiol. 2020 February 10;5(5):540-548. doi: [email or web address] Current Interpretive Data was last revised on 2024. Non-HDL Cholesterol 83 mg/dL [facility] Comment: Interpretive Data Ages < or = 19 years Acceptable: <120 mg/dL Borderline high: 120-144 mg/dL High: >145 mg/dL Ages > or = 20 years When triglycerides are >200 mg/dL, Non-HDL cholesterol is a secondary target of therapy with treatment goals that are 30 mg/dL greater than the LDL cholesterol target. Literature References: 1. Expert Panel on Integrated Guidelines for Cardiovascular Health and Risk Reduction in Children and Adolescents. Pediatrics 2011;128:S213 2. NCEP Expert Panel. Circulation 2004;110:227 Current Interpretive Data was last revised on 2018. Chol/HDL ratio 3 [facility] Blood 01/19/2025 2:59 PM CDT 01/19/2025 9:18 PM CDT us Cornellja Mehran Laurent MD LAB [place] [address] [address] [place] [address] * Comprehensive metabolic panel (01/19/2025 2:59 PM CDT) Sodium 137 135 - 145 mmol/L Potassium, pl 4.0 3.3 - 4.9 mmol/L [facility] Chloride 97 97 - 110 mmol/L [facility] CO2 25 22 - 32 mmol/L [facility] Anion gap 15 2 - 15 mmol/L [facility] BUN 23 6 - 25 mg/dL [facility] Creatinine 1.12 0.80 - 1.30 mg/dL [facility] Glucose 167 70 - 199 mg/dL [facility] Comment: Interpretive Data Fasting glucose >/= 126 mg/dl is diagnostic for diabetes. Fasting is defined as no caloric intake for at least 8 hours. Fasting glucose between 100 mg/dl to 125 mg/dl is diagnostic of prediabetes. In a patient with classic symptoms of hyperglycemia or hyperglycemic crisis, a random glucose >/= 200 mg/dl is diagnostic for diabetes. In the absence of unequivocal hyperglycemia, results should be confirmed by repeat testing. The classification and Diagnosis of Diabetes Diabetes Care 2021; 46: S19-S40. Current interpretive data was last revised 2022. Calcium 9.8 8.5 - 10.3 mg/dL [facility] Bilirubin, total 0.2 0.1 - 1.2 mg/dL [facility] Protein, pl 8.0 6.5 - 8.5 g/dL [facility] Albumin 3.9 3.5 - 5.0 g/dL [facility] Alk phos 91 40 - 130 Units/L [facility] ALT 17 7 - 55 Units/L [facility] AST 24 10 - 50 Units/L [facility] Blood 01/19/2025 2:59 PM CDT 01/19/2025 9:18 PM CDT us Efe Laurent MD LAB BLOOD ORDERABLE S Final Result [facility] [address] [place] [address] * (ABNORMAL) POCT hemoglobin A1c (01/19/2025 2:10 PM CDT) Hemoglobin A1C, POC 7.3 4.0 - 5.6 % Blood 01/19/2025 2:10 PM CDT us Stephanie Hooker NP POINT OF CARE TEST ORDERA BLES Final Result * (ABNORMAL) POCT glucose (01/19/2025 2:10 PM CDT) Glucose Blood, POC 164 mg/dL Blood 01/19/2025 2:10 PM CDT us Stephanie Hooker NP POINT OF CARE TEST ORDERA BLES Final Result * (ABNORMAL) DIABETES EYE EXAM (08/25/2024 7:17 AM HADOOP APPLICATION DEVELOPER) us Historical Provider HEALTH MAINTENANCE Final Result from Last 3 Months or Most Recently Relevant to Health Maintenance Insurance [employer] MEDICARE GOLD HU[employer] CHOICE MEDICARE PPO TNA MEDICARE GOLD Care Teams [employer] Supervisor Relationship Specialty Start Date End Date Art Trevino MD [address] [address] PCP - General Family Medicine 09/20/24
--- OUTSIDE RECORDS SUMMARY | 2025-02-18 11:42 | XMS_ITS | Referral Summary ---
Author Organization [facility] Address [facility] [place] [address] Care Team Providers Care Solar/Ren[employer]able Energy Sales Name Role Phone Art Trevino MD Primary Care Provider [phone] Encounters Date Type Department Care Team Description 01/27/2025 Telephone [facility] Diabetes and Endocrinology [address] [place] [phone] Stephanie Hooker, MACHINE PAINT MIXER Request OV 01/27/2025 Orders Only [facility] Diabetes and Endocrinology [address] [place] [phone] Sarath Jerome MD 01/20/2025 Orders Only [facility] Diabetes and Endocrinology [address] [place] [phone] Sarath Jerome MD 01/20/2025 Results Follow-Up [facility] [id number] [place] [phone] Efe Lara MD 01/19/2025 2:59 PM CDT - 01/19/2025 11:59 PM CDT Hospital Encounter [address] [address] Type 2 diabetes mellitus with stage 2 chronic kidney disease, without long-term current use of insulin (HCC); Hypertension associated with diabetes (HCC); Hyperlipidemia associated with type 2 diabetes mellitus (HCC) Discharge Disposition: Discharge to home or self care 01/19/2025 3:00 PM CDT Lab [facility] Outpatient Lab at [address] [phone] Hyperlipidemia associated with type 2 diabetes mellitus (HCC) (Primary Dx) 01/19/2025 2:00 PM CDT Office Visit [facility] Diabetes and Endocrinology [address] [place] [phone] Stephanie Hooker, JACINTO Type 2 diabetes mellitus with stage 2 chronic kidney disease, without long-term current use of insulin (HCC) (Primary Dx); Hypertension associated with diabetes (HCC); Hyperlipidemia associated with type 2 diabetes mellitus (HCC) 01/17/2025 Telephone [facility] ([facility]) - [facility] ENT [facility] 11[address] [place] [address] [place] [address] Rice, TitaMS bobby 01/14/2025 Telephone [facility] Diabetes and Endocrinology [address] [place] [phone] Efe Lara MD request to pcp for insurance referral 12/17/2024 Telephone [facility] [address] [facility] [address], [place] [address] Efe Lara MD from Last 3 Months Allergies Active Allergy Reactions Criticality Noted Date [...] (325 mg total) by mouth daily Active ijcil-[id number]-yea-epa -fish oil 300-1,000 mg capsule Take by [...] to now 7.3%. Will send me a mychart if he'd like for me to send [...] daily DM eye exam fall 2023 at [facility]. Letter sent to get copy of report. Will update labs today. Verified that he uses [employer] [facility] Aware to check results/results letter in [employer] Will contact by phone if needed. Discussed [...] infection. Assessment & Plan (10/14/2024 11:19 AM CONSTRUCTION RIGGER): Chronic, uncontrolled but stable Hemoglobin A1c 8.2%, [...] Rosuvastatin 20mg. Last lipid panel: 05/03/24 LDL=56, CK=785. Assessment & Plan (10/14/2024 11:19 AM CONSTRUCTION RIGGER): Chronic, stable Continue rosuvastatin Hypertension associated with diabetes 10/14/2024 Assessment & Plan (01/19/2025 2:21 PM CDT): Chronic problem. Controlled on current carvedilol 25mg bid, valsartan-HCTZ 320- 25mg daily, amlodipine 10mg daily Assessment & Plan (10/14/2024 11:19 AM CONSTRUCTION RIGGER): Chronic, well controlled Continue amlodipine, valsartan/hydrochlorothiazide Facial pressure 08/04/2018 Chronic sinusitis 08/04/2018 Deviated nasal septum 08/04/2018 Shortness of breath 02/26/2014 Overview (01/16/2017): SOB (shortness of breath) Cardiac tamponade 02/26/2014 Overview (01/16/2017): Cardiac tamponade Paroxysmal atrial fibrillation 02/26/2014 Overview (01/16/2017): AF (paroxysmal atrial fibrillation) Immunizations Immunization Administration Dates Next Due Pfizer SARS-CoV-2 Monovalent Vaccination (12+ Yrs) HOFFMAN-READY TO USE 2022 Social History Tobacco Use Types Packs/Day Years Used Date Smoking Tobacco: Former Cigarettes Q uit: 10/13/1979 Alcohol Use Standard Drinks/Week Comments Yes 0 (1 standard drink = 0.6 oz pur e alcohol) Sex and Gender Information Value Date Recorded Sex Assigned at Not on file Legal Sex Male 12:21 PM CONSTRUCTION RIGGER Gender Identity Not on file Sexual Orientation [...] 01/19/2025 2:06 PM CDT Plan of Treatment Not on file Procedures Procedure Name Priority Date/Time Associated Diagnosis [...] DIABETES EYE EXAM Routine 08/25/2024 7:17 AM CONSTRUCTION RIGGER from Last 3 Months or Most Recently Relevant to Health Maintenance Results * eGFR (01/19/2025 2:59 PM CDT) [facility] Signature eGFR 68 >=60 mL/min/1. 73 m2 Comment: [...] 2:59 PM CDT 01/19/2025 9:23 PM CDT Efe Laurent MD LAB BLOOD ORDERABLE S Final Result Performing Organization Address [facility] Co de Phone Number [facility] [address] [place] [address] * Albumin Creatinine Ratio, Urine (01/19/2025 2:59 PM CDT) Albumin Ur <12.0 mg/L Comment: Interpretive Data No reference range established. Current interpretive data was last revised 2019. Creatinine Ur 42.8 mg/dL [facility] Comment: Interpretive Data No reference range established. Current interpretive data was last revised 2019. Albumin Creatinine Ratio, Ur <28 1 - 29 mg/g [facility] Urine 01/19/2025 2:59 PM CDT 01/19/2025 9:18 PM CDT Efe Laurent MD LAB URINE ORDERABLE S Final Result Performing Organization Address [facility] Co de Phone Number [facility] [place] [address] [facility] [place] [address] * (ABNORMAL) Lipid panel (01/19/2025 2:59 PM [...] on 2018. HDL 39(L) >=40 mg/dL [facility] Comment: Interpretive Data Ages < [...] 2018. LDL, calculated 54 <=129 mg/dL [facility] Comment: Interpretive Data Ages < [...] revised on 2024. Non-HDL Cholesterol 83 mg/dL [facility] Comment: Interpretive Data Ages < or = [...] revised on 2018. Chol/HDL ratio 3 [facility] Blood 01/19/2025 2:59 PM CDT 01/19/2025 9:18 PM CDT Cornell Mehran Laurent MD LAB BLOOD ORDERABLE S Final Result [facility] [address] [place] [address] * Comprehensive metabolic panel (01/19/2025 2:59 PM CDT) Sodium 137 135 - 145 mmol/L Potassium, pl 4.0 3.3 - 4.9 mmol/L [facility] Chloride 97 97 - 110 mmol/L [facility] CO2 25 22 - 32 mmol/L [facility] Anion gap 15 2 - 15 mmol/L [facility] BUN 23 6 - 25 mg/dL [facility] Creatinine 1.12 0.80 - 1.30 mg/dL [facility] Glucose 167 70 - 199 mg/dL [facility] Comment: Interpretive Data Fasting glucose >/= 126 [...] MD LAB BLOOD ORDERABLE S Final Result [facility] [address] [place] [address] * (ABNORMAL) POCT hemoglobin A1c (01/19/2025 2:10 [...] (ABNORMAL) DIABETES EYE EXAM (08/25/2024 7:17 AM CONSTRUCTION RIGGER) us Historical Provider HEALTH MAINTENANCE Final Result from Last 3 Months or Most Recently Relevant to Health Maintenance Insurance T MEDICARE GOLD [employer] CHOICE MEDICARE PPO T MEDICARE GOLD Care Teams Solar[employer]Renewable Energy Sales Relationship Specialty Start Date End Date Art Trevino MD [address] [id number] PCP - General Family Medicine 09/20/24
--- OUTSIDE RECORDS SUMMARY | 2025-02-18 11:42 | XMS_ITS | Encounter Summary ---
Author Organization [facility] Address [address] [place] [address] Care Team Providers Care Comic Artist Name Role Phone Merari Adams MD Primary Care Provider [phone] Encounter Details Date Type Department Care Team (Late st Contact Info) Description 03/13/2020 Prep for Procedure [facility] [address] [place], [place] [id number] Avni Astorga MD [address] [facility] [address] [place] [address] Social History Tobacco Use Types Packs/Day Years [...] on file documented as of this encounter Functional Status documented as of this encounter Plan of Treatment Not on file documented as of this encounter Results * PRE-SURGICAL/PRE-PROCEDURE CORONAVIRUS (COVID 19) (03/17/2020 11:31 AM CDT) CORONAVIRUS SARS COV 2 PCR (RESP) NOT DETECTED NOT DETECTED 03/18/2020 1:54 PM CDT [facility] Comment: A Not Detected (negative) test result for this test means that SARS- CoV-2 RNA was not present in the specimen above the limit of detection. A negative result does not rule out the possibility of COVID-19 and should not be used as the sole basis for treatment or patient management decisions. If COVID-19 is still suspected, based on exposure history together with other clinical findings, re-testing should be considered in consultation with public health authorities. Laboratory test results should always be considered in the context of clinical observations and epidemiological data in making a final diagnosis and patient management decisions. Please review the Fact Sheets and FDA authorized labeling available for health care providers and patients using the following websites: https://www.[employer]Jam[employer]/home/Covid-19/HCP/Quest[employer]D/fact- sheet.html https://www.[employer]Jam.[employer]/home/Covid-19/Patients/ QuestIVD/fact-sheet.html This test has been authorized by the FDA under an Emergency Use Authorization (EUA) for use by authorized laboratories. Due to the current public health emergency, [facility] is receiving a high volume of samples from a wide variety of swabs and media for COVID-19 testing. In order to serve patients during this public health crisis, samples from appropriate clinical sources are being tested. Negative test results derived from specimens received in non-commercially manufactured viral collection and transport media, or in media and sample collection kits not yet authorized by FDA for COVID-19 testing should be cautiously evaluated and the patient potentially subjected to extra precautions such as additional clinical monitoring, including collection of an additional specimen. Methodology: Nucleic Acid Amplification Test (NAAT) includes PCR or TMA Additional information about COVID-19 can be found at the [facility] website: www.[employer]un[employer]hisheng[employer]/Covid19. Test performed at [facility] [place] [address] [place] [address] Director: JOSIAH MURILLO DO,MPH NASOPHARYNGEAL SWAB / Unknown 03/17/2020 11:31 AM CDT us Avni Astorga MD MICROBIOLOGY - GENERAL ORDERAB LES Final Result [facility] [id number] [place] [address] documented in this encounter Visit Diagnoses Diagnosis Pre-op testing- Primary Preoperative examination, unspecified documented in this encounter Additional Health Concerns Infection Onset Date Last Indicated Resolved Time COVID-19 Rule Out 03/17/2020 03/17/2020 03/18/2020 1:55 PM CDT documented as of this encounter Care Teams Comic Artist Relationship Specialty Start Date End Date Merari Adams MD [address] [place] [address] PCP - General FAMILY PRACTICE 03/15/20 documented as of this encounter
== END 2025-02-18 11:40 | disposition home or self-care (01) ==
PROVIDERS: PCP Family Medicine; Visit Provider Family Medicine
DX: M19.012 Primary osteoarthritis, left shoulder (principal)
CPT/HCPCS: 73030

== ENCOUNTER 2025-03-27 16:35 | Emergency (ER) | payer MEDICARE, SELFPAY ==
--- NOTE | 2025-03-27 16:37 | ED.URI ---
HPI - URI/Sore Throat General Chief Complaint: Upper Respiratory Infection Stated Complaint: Sinus Infection Time Seen by Provider: 03/27/25 16:49 Source: patient and RN notes reviewed Mode of arrival: ambulatory Limitations: no limitations History of Present Illness HPI Narrative: 79-year-old male presents with concern for chronic sinus problems. Reports he was treated 1 month ago for sinus infection with cefdinir and steroid by his primary care provider. Reports that did not clear up fully. Reports it has worsened again over the last 3 days. He denies fever. Reports occasional cough. He reports ear fullness. He has been using allergy medicines at home. MD elicited complaint: nasal congestion and sinus pain Related Data Home Medications ?Medication ?Instructions ?Recorded ?Confirmed ?Last Taken ?Type amlodipine 10 mg tablet 10 mg PO DAILY 06/16/21 02/23/25 Unknown History aspirin 325 mg tablet 325 mg PO DAILY 06/16/21 02/23/25 Unknown History finasteride 5 mg tablet 5 mg PO DAILY 06/16/21 02/23/25 Unknown History rosuvastatin 20 mg tablet 20 mg PO DAILY 06/16/21 02/23/25 Unknown History carvedilol 25 mg tablet 25 mg PO BID 06/23/24 02/23/25 Unknown History omeprazole 20 mg tablet,delayed 20 mg PO DAILY 06/23/24 02/23/25 Unknown History release sitagliptin phosphate 100 mg 100 mg PO DAILY 02/23/25 02/23/25 Unknown History tablet (Januvia) cyanocobalamin (vitamin B-12) 1,000 mcg PO DAILY 03/27/25 Unknown History 1,000 mcg tablet Allergies Allergy/AdvReac Type Severity Reaction Status Date / Time Sulfa (Sulfonamide Allergy Severe Swelling Verified 03/27/25 16:39 Antibiotics) of Lip/Tongue/Throat doxycycline AdvReac Mild Itching Verified 03/27/25 16:39 Review of Systems Review of Systems: CONSTITUTIONAL: Denies malaise, chills, sweats, or fever. EYES: Denies visual changes, redness, or discharge. ENT: Reports rhinorrhea, congestion, sinus pain, otalgia CARDIOVASCULAR: Denies chest pain, palpitations, or edema. RESPIRATORY: Reports occasional cough. Denies dyspnea. GASTROINTESTINAL: Denies abdominal pain, nausea, vomiting, diarrhea SKIN: Denies rash or itching. MUSCULOSKELETAL: Denies myalgia. NEUROLOGIC: Denies headache. All systems reviewed & are unremarkable except as noted in HPI and below PMFSH Past Medical History Medical History (Updated 03/27/25 @ 16:57 by Alejandra Gonzales NP) Iron deficiency anemia, unspecified hemoglobin 10.7, iron 26 with 12% saturation and ferritin 65 on 03/03/2025. Vitamin B12 deficiency (dietary) anemia level low at 312 with goal greater than 400 and hemoglobin 10.7 on 03/03/2025. Protein in urine the patient had 2+ protein on urinalysis on 02/17/2025. Anemia (02/17/25) hemoglobin 11.4 on 02/17/2025. Hemoglobin 10.7, iron 26 with 12% saturation and ferritin 65 with vitamin B12 312 with goal greater than 400 and folic acid 10 on 03/03/2025. 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 BMI 29.0-29.9,adult Overweight (BMI 25.0-29.9) At low risk for fall Encounter for prostate cancer screening PSA 0.42 on 02/17/2025. Screening for diabetic retinopathy (08/25/24) mild diabetic retinopathy both eyes on 08/25/2024. BMI 30.0-30.9,adult Obesity (BMI 30.0-34.9) Benign paroxysmal positional vertigo due to bilateral vestibular disorder Acute non-recurrent maxillary sinusitis Tubular adenoma of colon 5 tubular adenomas of the colon on 10/01/2023 Recheck in 3 years. Controlled type 2 diabetes mellitus with hyperglycemia, without long-term current use of insulin Fasting glucose 172 with GFR 81 on 02/17/2025. Edema, peripheral Male erectile dysfunction, unspecified Fatty liver AST 15, ALT 16 on 02/17/2025. Seasonal allergic rhinitis BPH without obstruction/lower urinary tract symptoms Mixed hyperlipidemia Cholesterol 124, triglycerides 91, HDL 39, LDL 68 on 02/17/2025. Essential hypertension Colon cancer screening Depression High cholesterol Diabetes GERD (gastroesophageal reflux disease) Seasonal allergies HTN (hypertension) Social History Social History Smoking status: Former smoker Alcohol intake: never Substance use: never Substance use type: does not use Living arrangements: with family Spiritual care concerns: No Comments At time of signature, agree with nursing past medical, surgical, social and family history. There is no relevant family history pertinent to the presenting complaint Exam Narrative: GENERAL: Well-appearing, well-nourished, and in no acute distress. HEAD: Normocephalic EYES: PERRLA, conjunctivae clear ENT: Nares clear, turbinates edematous and erythematous. Mucous membranes moist. TM pearly españa with dull light reflex bilaterally; no tragal tenderness. Oropharynx not erythematous without lesions. Tonsils not enlarged and without exudate, no drooling, no hoarseness, no trismus, uvula midline. NECK: Supple. No lymphadenopathy CHEST: Clear to auscultation, breath sounds equal. No wheezing, rhonchi, rales, or stridor. No respiratory distress, speaks in full sentences. HEART: Regular rate and rhythm. No murmur heard. SKIN: Warm, dry, no rash. NEURO: Alert and oriented x3. PSYCH: Normal mood and affect Course Course Emergency Course: Patient is aware of diagnosis, understands and agrees to treatment plan. Anticipatory guidance given. Patient agrees to follow-up as directed and is aware of reasons to seek care at the emergency department. Portions of this record may have been created with voice recognition software Level of Care: Express Care Visit Vital Signs Vital signs: Reviewed. MDM - URI/Sore Throat MDM Narrative Medical decision making narrative: Differential diagnosis considered: Matthews virus, strep pharyngitis, allergic rhinitis, upper respiratory tract infection, sinusitis, rhinosinusitis, nasopharyngitis. viral pharyngitis, otitis media, otitis externa, pneumonia, bronchitis, viral cough syndrome, viral syndrome, and influenza. Exam findings show no acute concerns or changes; patient is non-toxic appearing and is in no distress. Patient is appropriate for outpatient treatment and follow-up. Lab Data Attestation: I reviewed the patient's lab results. Critical Care Time Critical Care Time Critical Care Time: No Discharge Plan Discharge Clinical Impression: Chronic sinusitis Patient Disposition: Home Condition: Stable Instructions: Antibiotic Form, Sinusitis (ED) Additional Instructions: Take medication as prescribed Nonprescription pain medications, such as acetaminophen (eg, Tylenol) or ibuprofen (eg, Motrin, Advil), are recommended for pain. Flushing the nose and sinuses with a saline solution several times per day has been proven to decrease pain associated with congestion and shorten the duration of symptoms. Nasal steroids (such as Flonase, 2 sprays in each nostril daily) can help to reduce swelling inside the nose, usually within two to three days. These drugs have few side effects and relieve symptoms in most people. Nasal decongestant sprays, including oxymetazoline (Afrin) and phenylephrine (Rafael-Synephrine), can be used to temporarily treat congestion. However, these sprays should not be used for more than two to three days due to the risk of rebound congestion (when the nose becomes congested constantly unless the medication is used repeatedly), possible addiction, and long-term consequences of frequent use, including persistent nasal dryness and crusting, which is very difficult to treat once it has developed. Medications to thin secretions (such as guaifenesin) may help to clear mucus. Please follow-up with your primary care doctor in the next 1-2 days. If you cannot follow-up with your primary care doctor please go to the ED for any urgent issues. If you have any worsening of symptoms or any other concerns please go to the ED immediately. Patient Language: Arabic Prescriptions: New amoxicillin-pot clavulanate 875-125 mg tablet 1 tablet PO Q12H 10 Days Qty: 20 0RF oxymetazoline [Afrin (oxymetazoline)] 0.05 % spray,non-aerosol 2 spray intranasal Q12H PRN (Reason: nasal congestion) 3 Days Qty: 15 0RF No Action amlodipine 10 mg tablet 10 mg PO DAILY finasteride 5 mg tablet 5 mg PO DAILY rosuvastatin 20 mg tablet 20 mg PO DAILY aspirin 325 mg Tablet 325 mg PO DAILY doxazosin 4 mg tablet 4 mg PO QHS Qty: 180 3RF carvedilol 25 mg tablet 25 mg PO BID omeprazole 20 mg tablet,delayed release (DR/EC) 20 mg PO DAILY Januvia 100 mg tablet 100 mg PO DAILY Patient Comments: prescribed by employment officer fluticasone propionate [Flonase Allergy Relief] 50 mcg/actuation spray,suspension 1 spray intranasal BID Qty: 16 11RF Rx Instructions: administer into each nostril azelastine 137 mcg (0.1 %) spray,non-aerosol 137 mcg INTRANASAL BID Qty: 30 11RF escitalopram oxalate 10 mg tablet 10 mg PO DAILY Qty: 90 3RF valsartan-hydrochlorothiazide 320-25 mg tablet 1 tablet PO DAILY Qty: 90 3RF glipizide 10 mg tablet 10 mg PO .COMPLEX Qty: 360 3RF Rx Instructions: 10 mg orally 2 tablets q.a.m. and 1 tablet with supper; metformin 1,000 mg tablet 1,000 mg PO BID Qty: 180 3RF meloxicam 15 mg tablet 15 mg PO DAILY PRN (Reason: pain) Qty: 30 2RF prednisone 20 mg tablet 20 mg PO DAILY Qty: 5 0RF cyanocobalamin (vitamin B-12) 1,000 mcg tablet 1,000 mcg PO DAILY ferrous sulfate 325 mg (65 mg iron) tablet,delayed release (DR/EC) 325 mg PO DAILY Qty: 30 11RF Follow-up/Referrals: Art Trevino MD [Primary Care Provider] - Time of Disposition: 16:59
--- OUTSIDE RECORDS SUMMARY | 2025-03-27 16:38 | XMS_ITS | CONTINUITY OF CARE DOCUMENT ---
Author Name efrían kenny Address Unknown Organization [facility] Address [address] [place] [address] [address] [place] [address] Phone [phone] Care Team Providers Care Composition Roofer Name Role Phone Sharan Carbajal MD Unavailable [phone] Sharan Carbajal MD Unavailable [phone] INSURANCE PROVIDERS Payer name Policy type / Coverage type [employer] party ID [employer] MEDICARE GOLD ADVANTAGE HMO Medicare [id number]
--- OUTSIDE RECORDS SUMMARY | 2025-03-27 16:38 | XMS_ITS | Referral Summary ---
Author Organization [facility] Address Formerly [facility] [place] [address] Care Team Providers Care Radio Survey Worker Name Role Phone Art Trevino MD Primary Care Provider [phone] Encounters Date Type Department Care Team Description 01/27/2025 Telephone [facility] Diabetes and Endocrinology [address] [place] [phone] Stephanie Hooker, DISTRICT COMMERCIAL SUPERINTENDENT Request OV 01/27/2025 Orders Only [facility] Diabetes and Endocrinology [address] [place] [phone] Sarath Jerome MD 01/20/2025 Orders Only [facility] Diabetes and Endocrinology [address] [place] [phone] Sarath Jerome MD 01/20/2025 Results Follow-Up [facility] [address] [phone] Efe Lara MD Albumin Creatinine Ratio, Urine, Comprehensive metabolic panel, Lipid panel, eGFR 01/19/2025 2:59 PM CDT - 01/19/2025 11:59 PM CDT Hospital Encounter [address] [address] Type 2 diabetes mellitus with stage 2 chronic kidney disease, without long-term current use of insulin (HCC); Hypertension associated with diabetes (HCC); Hyperlipidemia associated with type 2 diabetes mellitus (HCC) Discharge Disposition: Discharge to home or self care 01/19/2025 3:00 PM CDT Lab [facility] Outpatient Lab at [address] [phone] Hyperlipidemia associated with type 2 diabetes mellitus (HCC) (Primary Dx) 01/19/2025 2:00 PM CDT Office Visit [facility] Diabetes and Endocrinology [address] [place] [phone] Stephanie Hooker, JACINTO Type 2 diabetes mellitus with stage 2 chronic kidney disease, without long-term current use of insulin (HCC) (Primary Dx); Hypertension associated with diabetes (HCC); Hyperlipidemia associated with type 2 diabetes mellitus (HCC) 01/17/2025 Telephone [facility] ([facility]) - [facility] ENT [address] [facility] [address] 11th [place] [address] [place] [address] Tita Rice MS 01/14/2025 Telephone [facility] Medical [facility] Diabetes and Endocrinology [address] [place] [phone] Mehran Laurent, Efe Laurent MD request to pcp for insurance referral from Last 3 Months Allergies Active Allergy [...] (325 mg total) by mouth daily Active [id number]-epa -fish oil 300-1,000 mg capsule Take by [...] to now 7.3%. Will send me a [employer] if he'd like for me to send [...] daily DM eye exam fall 2023 at [facility]. Letter sent to get copy of report. Will update labs today. Verified that he uses [facility]. Aware to check results/results letter in [employer]. Will contact by phone if needed. Discussed [...] infection. Assessment & Plan (10/14/2024 11:19 AM BRAND SALES MANAGER): Chronic, uncontrolled but stable Hemoglobin A1c 8.2%, [...] Rosuvastatin 20mg. Last lipid panel: 05/03/24 LDL=56, QK=959. Assessment & Plan (10/14/2024 11:19 AM BRAND SALES MANAGER): Chronic, stable Continue rosuvastatin Hypertension associated with diabetes 10/14/2024 Assessment & Plan (01/19/2025 2:21 PM CDT): Chronic problem. Controlled on current carvedilol 25mg bid, valsartan-HCTZ 320- 25mg daily, amlodipine 10mg daily Assessment & Plan (10/14/2024 11:19 AM BRAND SALES MANAGER): Chronic, well controlled Continue amlodipine, valsartan/hydrochlorothiazide Facial [...] on file Legal Sex Male 12:21 PM BRAND SALES MANAGER Gender Identity Not on file Sexual Orientation [...] 2:06 PM CDT Height 182.9 cm (6' 0.01) 01/19/2025 2:06 PM CD T Body Mass [...] DIABETES EYE EXAM Routine 08/25/2024 7:17 AM BRAND SALES MANAGER from Last 3 Months or Most Recently [...] ORDERABLE S Final Result Performing Organization Address [facility] [employer] Phone Number [facility] [phone] [address] [facility] [place] [address] * Albumin Creatinine Ratio, Urine (01/19/2025 2:59 PM CDT) Albumin Ur <12.0 mg/L Comment: Interpretive Data No reference range established. Current interpretive data was last revised 2019. Creatinine Ur 42.8 mg/dL [facility] Comment: Interpretive Data No reference range established. Current interpretive data was last revised 2019. Albumin Creatinine Ratio, Ur <28 1 - 29 mg/g [facility] Urine 01/19/2025 2:59 PM CDT 01/19/2025 9:18 PM CDT Efe Laurent MD LAB URINE ORDERABLE S Final Result Performing Organization Address [facility] [employer] Phone Number [facility] [phone] [facility] [place] [address] * (ABNORMAL) Lipid panel (01/19/2025 2:59 PM [...] on 2018. Triglycerides 173(H) <=149 mg/dL [facility] Comment: Interpretive Data Ages [...] NCEP Expert Panel. Circulation 2004;110:227 3. Kemar Welch. BRYANNA Cardiol. 2020 February 10;5(5):540-548. doi: 10.1001/jamacardio.2020.0013 Current Interpretive Data was last revised on 2024. Non-HDL Cholesterol 83 mg/dL [facility] Comment: Interpretive Data Ages < or = [...] last revised on 2018. Chol/HDL ratio 3 [facility] Blood 01/19/2025 2:59 PM CDT 01/19/2025 9:18 PM CDT us Efe Laurent MD LAB BLOOD ORDERABLE S Final Result [facility] [address] Department [place] [address] * Comprehensive metabolic panel (01/19/2025 2:59 PM CDT) Sodium 137 135 - 145 mmol/L Potassium, pl 4.0 3.3 - 4.9 mmol/L [facility] Chloride 97 97 - 110 mmol/L [facility] CO2 25 22 - 32 mmol/L [facility] Anion gap 15 2 - 15 mmol/L [facility] BUN 23 6 - 25 mg/dL [facility] Creatinine 1.12 0.80 - 1.30 mg/dL [facility] Glucose 167 70 - 199 mg/dL [facility] Comment: Interpretive Data Fasting glucose >/= 126 [...] classification and Diagnosis of Diabetes Diabetes Care 202; 46: S19-S40. Current interpretive data was last [...] LAB BLOOD ORDERABLE S Final Result [facility] [address] Department [place] [address] * (ABNORMAL) POCT hemoglobin A1c (01/19/2025 2:10 [...] (ABNORMAL) DIABETES EYE EXAM (08/25/2024 7:17 AM BRAND SALES MANAGER) us Historical Provider HEALTH MAINTENANCE Final Result from Last 3 Months or Most Recently Relevant to Health Maintenance Insurance [employer] MEDICARE GOLD HU[employer] CHOICE MEDICARE PPO T MEDICARE GOLD Care Teams Radio Survey Worker Relationship Specialty Start Date End Date Art Trevino MD [address] [address] PCP - General Family Medicine 09/20/24
--- OUTSIDE RECORDS SUMMARY | 2025-03-27 16:39 | XMS_ITS | Clinical Summary ---
Author Organization [facility] Address [address] [place] [address] Care Team Providers Care Panel Edge Painter Name Role Phone Art Trevino MD Primary Care Provider [phone] Allergies Active Allergy Reactions Criticality Noted Date [...] (325 mg total) by mouth daily Active rdwua-4t-[id number]-epa -fish oil 300-1,000 mg capsule Take by [...] to now 7.3%. Will send me a [employer] if he'd like for me to send [...] daily DM eye exam fall 2023 at [facility]. Letter sent to get copy of report. Will update labs today. Verified that he uses [employer] [facility]. Aware to check results/results letter in [employer]. Will contact by phone if needed. Discussed [...] infection. Assessment & Plan (10/14/2024 11:19 AM PLUMBING AND HEATING MECHANIC): Chronic, uncontrolled but stable Hemoglobin A1c 8.2%, [...] Rosuvastatin 20mg. Last lipid panel: 05/03/24 LDL=56, AP=559. Assessment & Plan (10/14/2024 11:19 AM PLUMBING AND HEATING MECHANIC): Chronic, stable Continue rosuvastatin Hypertension associated with diabetes 10/14/2024 Assessment & Plan (01/19/2025 2:21 PM CDT): Chronic problem. Controlled on current carvedilol 25mg bid, valsartan-HCTZ 320- 25mg daily, amlodipine 10mg daily Assessment & Plan (10/14/2024 11:19 AM PLUMBING AND HEATING MECHANIC): Chronic, well controlled Continue amlodipine, valsartan/hydrochlorothiazide Facial pressure 08/04/2018 Chronic sinusitis 08/04/2018 Deviated nasal septum 08/04/2018 Shortness of breath 02/26/2014 Overview (01/16/2017): SOB (shortness of breath) Cardiac tamponade 02/26/2014 Overview (01/16/2017): Cardiac tamponade Paroxysmal atrial fibrillation 02/26/2014 Overview (01/16/2017): AF (paroxysmal atrial fibrillation) Encounters Date Type Department Care Team Description 01/27/2025 Telephone [facility] Diabetes and Endocrinology [address] [place] [phone] Stephanie Hooker NP Request OV 01/27/2025 Orders Only [facility] Diabetes and Endocrinology [address] [place] [phone] ProviderSarath MD 01/20/2025 Orders Only [facility] Diabetes and Endocrinology [address] [place] [phone] Sarath Jerome MD 01/20/2025 Results Follow-Up [facility] [id number] [place] [phone] Efe Lara MD Albumin Creatinine Ratio, Urine, Comprehensive metabolic panel, Lipid panel, eGFR 01/19/2025 3:00 PM CDT Lab [facility] Outpatient Lab at [address] [phone] Hyperlipidemia associated with type 2 diabetes mellitus (HCC) (Primary Dx) 01/19/2025 2:59 PM CDT - 01/19/2025 11:59 PM CDT Hospital Encounter [address] [address] Type 2 diabetes mellitus with stage 2 chronic kidney disease, without long-term current use of insulin (HCC); Hypertension associated with diabetes (HCC); Hyperlipidemia associated with type 2 diabetes mellitus (HCC) Discharge Disposition: Discharge to home or self care 01/19/2025 2:00 PM CDT Office Visit [facility] Medical [facility] Diabetes and Endocrinology [address] [place] [phone] Stephanie Hooker NP Type 2 diabetes mellitus with stage 2 chronic kidney disease, without long-term current use of insulin (HCC) (Primary Dx); Hypertension associated with diabetes (HCC); Hyperlipidemia associated with type 2 diabetes mellitus (HCC) 01/17/2025 Telephone [facility] ([facility]) - [facility] ENT [address] [facility] [address] [place] [address] [place] [address] Tita Rice MS 01/14/2025 Telephone [facility] Diabetes and Endocrinology [address] [place] [phone] Efe Lara MD request to pcp for insurance referral from Last 3 Months Immunizations Immunization Administration [...] on file Legal Sex Male 12:21 PM PLUMBING AND HEATING MECHANIC Gender Identity Not on file Sexual Orientation [...] DIABETES EYE EXAM Routine 08/25/2024 7:17 AM PLUMBING AND HEATING MECHANIC from Last 3 Months or Most Recently [...] LAB BLOOD ORDERABLE S Final Result [facility] [address] [place] [address] * Albumin Creatinine Ratio, Urine (01/19/2025 2:59 PM CDT) Albumin Ur <12.0 mg/L Comment: Interpretive Data No reference range established. Current interpretive data was last revised 2019. Creatinine Ur 42.8 mg/dL [facility] Comment: Interpretive Data No reference range established. Current interpretive data was last revised 2019. Albumin Creatinine Ratio, Ur <28 1 - 29 mg/g [facility] Urine 01/19/2025 2:59 PM CDT 01/19/2025 9:18 PM CDT us Efe Laurent MD LAB URINE ORDERABLE S Final Result [facility] [address] Department [place] [address] * (ABNORMAL) Lipid panel (01/19/2025 2:59 PM [...] revised on 2018. Triglycerides 173(H) <=149 mg/dL [facility] Comment: Interpretive Data Ages < or = [...] 3. Kemar Venegas et al. BRYANNA Cardiol. 2019February 10;5(5):540-548. doi: 10.1001/[email or web address].2020.0013 Current Interpretive Data was [...] [place]LOOD [place] [address] [address] Department [place] [address] * Comprehensive metabolic panel (01/19/2025 2:59 PM [...] LAB BLOOD ORDERABLE S Final Result [facility] [address] Department [place] [address] * (ABNORMAL) POCT hemoglobin A1c (01/19/2025 2:10 PM CDT) Hemoglobin A1C, POC 7.3 4.0 - 5.6 % Blood 01/19/2025 2:10 PM CDT us Stephanie Hooker MICA WASHER GLUER POINT OF CARE TEST ORDERA BLES Final Result * (ABNORMAL) POCT glucose (01/19/2025 2:10 PM CDT) Glucose Blood, POC 164 mg/dL Blood 01/19/2025 2:10 PM CDT us Stephanie Hooker MICA WASHER GLUER POINT OF CARE TEST ORDERA BLES Final Result * (ABNORMAL) DIABETES EYE EXAM (08/25/2024 7:17 AM PLUMBING AND HEATING MECHANIC) us Historical Provider HEALTH MAINTENANCE Final Result from Last 3 Months or Most Recently Relevant to Health Maintenance Insurance AETNA MEDICARE GOLD HUMANA CHOICE MEDICARE PPO AETNA MEDICARE GOLD Care Teams Panel Edge Painter Relationship Specialty Start Date End Date Art Trevino MD [address] [id number] PCP - General Family Medicine 09/20/24
--- OUTSIDE RECORDS SUMMARY | 2025-03-27 16:39 | XMS_ITS | Data Portability ---
Author Organization [facility], Main Office Address [address] [place] [address] Assessment No assessment recorded. Plan of Treatment Reminders Order Date Submit Date Provider Last Modified By Organization Details Last Modified Time Details Appointments None recorded. Lab HbA1c (hemoglobin A1c), blood 2023 024 [email or web address] 477 [facility] (Lab), [address] [place], [address], 4 08:29:59 BMP, serum or plasma 2023 024 [email or web address] [place] [address] (Lab), [address] [place], [address], 4 08:29:59 microalbumi n, urine 2023 024 4 [facility] (Lab), [address] [place], [address], 4 15:26:24 CBC w/ auto diff 2023 024 [email or web address] 7 [facility] (Lab), [address] [place], [address], 4 08:29:59 lipid panel, serum 2023 [email or web address] [place] [address] (Lab), [address] [place], [address], 4 08:29:59 hepatic function panel, serum 2023 024 [email or web address] 7 [facility] (Lab), [address] [place], [address], 4 08:29:59 testosteron e, free + total, serum 2023 [email or web address] [place] [address] (Lab), [address] [place], [address], 4 08:29:58 Referral None recorded. Procedures None recorded. Surgeries None recorded. Imaging US, duplex, carotid artery - *Please call pt to schedule* 2023 [facility], 2022 Idania Holloway, [address], [address], 4 17:16:44 Medication Orders triamcinolo ne acetonide 40 mg/mL suspension for injection 2023 024 [email or web address] Not available 12:46:59 lidocaine (PF) 10 mg/mL (1 %) injection solution 2023 024 [email or web address] Not available 12:47:57 [address] [facility] ([place], [place])/Pharmacy #[id number], [address] [place], [address], 4 16:34:41 Patient TargetsNo targets recorded. Patient Instructions Encounter Date Encounter Id Patient Instructions Last Modified By Organization Details Last Modified Time 01/13/2024 [id number] Personalized a lt Plan and Screening Recommendations [...] of this year Chronic Disease Risks Stroke: Active diagnosis, Continue current treatment plan Heart Attack: Active diagnosis, Continue current treatment plan Clogging of the Arteries: Active diagnosis, Continue current treatment plan Diabetes: Active diagnosis, Continue current treatment plan Secondary Prevention/Interven tion (detects treatable diseases before they may cause symptoms, disability, or ) Prostate Cancer Screening: Colon Cancer Screening: Date Screening Last Performed: Eye Disease Screening: Your next exam in: Dementia Risk: Depression Screening: Active diagnosis, Continue current treatment plan Not available 01/13/2024 19:27:29 Reason for Referral None Reported. Results Created Date Observation Date Name Description Value Unit Range Abnormal Flag Note LastModifiedBy Organization Detail LastModifiedTime 02/04/2002/04/2024 MICRO ALBUM IN RANDO M URINE microalbumin , urine 11.9 mg/L 0.0-16 .6 Not Available [facility] (Lab) [address] [place], [address], 02/04/2024 21:34:24 02/05/20 24 02/05/2024 CBC/C OMPLE TE BLD COUNT W/DIF F white blood cells 6.2 x10'3 /uL 4.2-10 .8 Not Available [facility] (Lab) [address] [place], [address], 02/05/2024 19:44:41 02/05/20 24 02/05/2024 CBC/C OMPLE TE BLD COUNT W/DIF F red blood cells 4.21 x10'6 /uL 4.10-5 .80 Not Available [facility] (Lab) [address] [place], [address], 02/05/2024 19:44:41 02/05/20 24 02/05/2024 CBC/C OMPLE TE BLD COUNT W/DIF F hemoglobin 12.6 g/dL 13.2-1 7.0 low Not Available [facility] (Lab) [address] [place], [address], 02/05/2024 19:44:41 02/05/20 24 02/05/2024 CBC/C OMPLE TE BLD COUNT W/DIF F hematocrit 37.1 % 39.3-5 0.0 low Not Available [facility] (Lab) [address] [place], [address], 02/05/2024 19:44:41 02/05/20 24 02/05/2024 CBC/C OMPLE TE BLD COUNT W/DIF F mean red cell volume 88.1 fL 80.0-9 7.0 Not Available [facility] (Lab) [address] [place], [address], 02/05/2024 19:44:41 02/05/20 24 02/05/2024 CBC/C OMPLE TE BLD COUNT W/DIF F mean red cell hemoglobin 29.9 pg 27.0-3 3.0 Not Available [facility] (Lab) [address] [place], [address], 02/05/2024 19:44:41 02/05/20 24 02/05/2024 CBC/C OMPLE TE BLD COUNT W/DIF F mean RBC HGB concentratio n 34.0 g/dL 31.0-3 6.0 Not Available [facility] (Lab) [address] [place], [address], 02/05/2024 19:44:41 02/05/20 24 02/05/2024 CBC/C OMPLE TE BLD COUNT W/DIF F red cell distribution width 13.6 % 11.8-1 5.5 Not Available [facility] (Lab) [address] [place], [address], 02/05/2024 19:44:41 02/05/20 24 02/05/2024 CBC/C OMPLE TE BLD COUNT W/DIF F platelets 158 x10'3 /uL 150-40 0 Not Available [facility] (Lab) [address] [place], [address], 02/05/2024 19:44:41 02/05/20 24 02/05/2024 CBC/C OMPLE TE BLD COUNT W/DIF F mean platelet volume 9.6 fL 9.0-12 .4 Not Available [facility] (Lab) [address] [place], [address], 02/05/2024 19:44:41 02/05/20 24 02/05/2024 CBC/C OMPLE TE BLD COUNT W/DIF F neutrophils 74.7 % 39.0-7 2.0 high Not Available [facility] (Lab) [address] [place], [address], 02/05/2024 19:44:41 02/05/20 24 02/05/2024 CBC/C OMPLE TE BLD COUNT W/DIF F lymphocytes 12.5 % 16.0-4 7.0 low Not Available [facility] (Lab) [address] [place], [address], 02/05/2024 19:44:41 02/05/20 24 02/05/2024 CBC/C OMPLE TE BLD COUNT W/DIF F monocytes 9.1 % 5.0-12 .0 Not Available [facility] (Lab) [address] [place], [address], 02/05/2024 19:44:41 02/05/20 24 02/05/2024 CBC/C OMPLE TE BLD COUNT W/DIF F eosinophils 3.2 % 1.0-7. 0 Not Available [facility] (Lab) [address] [place], [address], 02/05/2024 19:44:41 02/05/20 24 02/05/2024 CBC/C OMPLE TE BLD COUNT W/DIF F basophils 0.2 % 0.0-2. 0 Not Available [facility] (Lab) [address] [place], [address], 02/05/2024 19:44:41 02/05/20 24 02/05/2024 CBC/C OMPLE TE BLD COUNT W/DIF F immature granulocytes 0.3 % 0.00-0 .50 Not Available [facility] (Lab) [address] [place], [address], 02/05/2024 19:44:41 02/05/20 24 02/05/2024 CBC/C OMPLE TE BLD COUNT W/DIF F neutrophils, absolute count 4.60 x10'3 /uL 1.5-8. 0 Not Available [facility] (Lab) [address] [place], [address], 02/05/2024 19:44:41 02/05/20 24 02/05/2024 CBC/C OMPLE TE BLD COUNT W/DIF F lymphocytes, absolute count 0.77 x10'3 /uL 1.07-3 .43 low Not Available [facility] (Lab) [address] [place], [address], 02/05/2024 19:44:41 02/05/20 24 02/05/2024 CBC/C OMPLE TE BLD COUNT W/DIF F monocytes, absolute count 0.56 x10'3 /uL 0.29-0 .99 Not Available [facility] (Lab) [address] [place], [address], 02/05/2024 19:44:41 02/05/20 24 02/05/2024 CBC/C OMPLE TE BLD COUNT W/DIF F eosinophils, absolute count 0.20 x10'3 /uL 0.02-0 .53 Not Available [facility] (Lab) [address] [place], [address], 02/05/2024 19:44:41 02/05/20 24 02/05/2024 CBC/C OMPLE TE BLD COUNT W/DIF F basophils, absolute count 0.01 x10'3 /uL 0.01-0 .08 Not Available [facility] (Lab) [address] [place], [address], 02/05/2024 19:44:41 02/05/20 24 02/05/2024 CBC/C OMPLE TE BLD COUNT W/DIF F immature granulocytes ,absolute 0.02 x10'3 /uL 0.00-0 .05 Not Available [facility] (Lab) [address] [place], [address], 02/05/2024 19:44:41 02/05/20 24 02/05/2024 CBC/C OMPLE TE BLD COUNT W/DIF F nucleated red blood cells 0.0 % -0 Not Available [facility] (Lab) [address] [place], [address], 02/05/2024 19:44:41 02/05/20 24 02/05/2024 CBC/C OMPLE TE BLD COUNT W/DIF F NRBC# 0.00 x10'3 /uL Not Available [facility] (Lab) [address] [place], [address], 02/05/2024 19:44:41 02/05/20 24 02/05/2024 BASIC METAB OLIC PANEL sodium 134 mmol/ L 137-14 5 low Not Available [facility] (Lab) [address] [place], [address], 02/05/2024 19:56:57 02/05/20 24 02/05/2024 BASIC METAB OLIC PANEL potassium 4.5 mmol/ L 3.5-5. 1 Not Available [facility] (Lab) [address] [place], [address], 02/05/2024 19:56:57 02/05/20 24 02/05/2024 BASIC METAB OLIC PANEL chloride 98 mmol/ L 98-107 Not Available [facility] (Lab) [address] [place], [address], 02/05/2024 19:56:57 02/05/20 24 02/05/2024 BASIC METAB OLIC PANEL carbon dioxide 28 mmol/ L 22-30 Not Available [facility] (Lab) [address] [place], [address], 02/05/2024 19:56:57 02/05/20 24 02/05/2024 BASIC METAB OLIC PANEL anion gap 12.5 mmol/ L 14-22 low Not Available [facility] (Lab) [address] [place], [address], 02/05/2024 19:56:57 02/05/20 24 02/05/2024 BASIC METAB OLIC PANEL glucose 184 mg/dL 70-99 high Not Available [facility] (Lab) [address] [place], [address], 02/05/2024 19:56:57 02/05/20 24 02/05/2024 BASIC METAB OLIC PANEL BUN 21 mg/dL 8-19 high Not Available [facility] (Lab) [address] [place], [address], 02/05/2024 19:56:57 02/05/20 24 02/05/2024 BASIC METAB OLIC PANEL creatinine 1.11 mg/dL 0.66-1 .25 Not Available [facility] (Lab) [address] [place], [address], 02/05/2024 19:56:57 02/05/20 24 02/05/2024 BASIC METAB OLIC PANEL GFR >60 Refer ence Range : Hardin ge GFR Healt hy Adult : >60 [...] is less accur ate, requi ring clini cla judgm ent on a case- by-ca se [...] calcu lator is avail able on the [facility] websi te: https :[email or web address].kid cesilia.o rg/pr ofess ional s/kdo qi/gf r_cal culat or Not Available [facility] (Lab) [address] [place], [address], 02/05/2024 19:56:57 02/05/20 24 02/05/2024 BASIC METAB OLIC PANEL calcium 9.5 mg/dL 8.4-10 .2 Not Available [facility] (Lab) [address] [place], [address], 02/05/2024 19:56:57 02/05/2002/05/2024 LIPID PANEL cholesterol 121 mg/dL 140-19 9 low NIH DC NSUS RECOM MENDA TION FOR KEN STERO L: ADULT CHILD LOW RISK: <200 <170 BORDE RLINE : <200- 239 ----- HIGH RISK: >240 >200 Not Available [facility] (Lab) [address] [place], [address], 02/05/2024 19:57:03 02/05/2002/05/2024 LIPID PANEL triglyceride s 155 mg/dL 0-150 high NIH DC NSUS REPOR T RECOM MENDA TION FOR TRIGL YCERI CAROLE: ADULT CHILD LOW RISK: <150 ----- BODER LINE: 150-1 99 ----- HIGH RISK: >200 ----- Not Available [facility] (Lab) [address] [place], [address], 02/05/2024 19:57:03 02/05/20 24 02/05/2024 LIPID PANEL HDL cholesterol 38 mg/dL 40- low Not Available [facility] (Lab) [address] [place], [address], 02/05/2024 19:57:03 02/05/20 24 02/05/2024 LIPID PANEL LDL cholesterol, calculated 52 mg/dL [...] WILL NOT BE REPOR MINNIE. Not Available [facility] (Lab) [address] [place], [address], 02/05/2024 19:57:03 02/05/20 24 02/05/2024 HEPAT IC/LI RE PANEL alkaline phosphatase 94 U/L 38-126 Not Available [facility] (Lab) [address] [place], [address], 02/05/2024 19:57:07 02/05/20 24 02/05/2024 HEPAT IC/LI RE PANEL alanine aminotransfe rase 26 U/L 0-50 Not Available [facility] (Lab) [address] [place], [address], 02/05/2024 19:57:07 02/05/20 24 02/05/2024 HEPAT IC/LI RE PANEL aspartate aminotransfe rase 29 U/L 15-46 Not Available [facility] (Lab) [address] [place], [address], 02/05/2024 19:57:07 02/05/20 24 02/05/2024 HEPAT IC/LI RE PANEL bilirubin, total 0.50 mg/dL 0.20-1 .30 Not Available [facility] (Lab) [address] [place], [address], 02/05/2024 19:57:07 02/05/20 24 02/05/2024 HEPAT IC/LI RE PANEL bilirubin, conjugated (direct) 0.00 mg/dL 0.00-0 .30 Not Available [facility] (Lab) [address] [place], [address], 02/05/2024 19:57:07 02/05/20 24 02/05/2024 HEPAT IC/LI RE PANEL biliurubin,u ncong. (indirect) 0.20 mg/dL 0.00-1 .1 Not Available [facility] (Lab) [address] [place], [address], 02/05/2024 19:57:07 02/05/2002/05/2024 HEPAT IC/LI RE PANEL total protein 7.5 g/dL 6.3-8. 2 Not Available [facility] (Lab) [address] [place], [address], 02/05/2024 19:57:07 02/05/20 24 02/05/2024 HEPAT IC/LI RE PANEL albumin 4.3 g/dL 3.0-4. 4 Not Available [facility] (Lab) [address] [place], [address], 02/05/2024 19:57:07 02/05/20 24 02/05/2024 HEPAT IC/LI RE PANEL globulin 3.2 g/dL 2.6-4. 2 Not Available [facility] (Lab) [address] [place], [address], 02/05/2024 19:57:07 02/05/20 24 02/05/2024 HEPAT IC/LI RE PANEL A/G ratio 1.3 ratio 1.0-2. 0 Not Available [facility] (Lab) [address] [place], [address], 02/05/2024 19:57:07 02/05/20 24 02/05/2024 HEMOG LOBIN A1C HA1C 8.1 % 4.0-6. 0 high Diabe emerson Scree usman Crite anahi: <5.7% Consi stent with absen ce of diabe emerson 5.7-6 .4% Consi stent with incre ased risk for diabe emerson (pred iabet es) >OR=6 .5% Consi stent with diabe emerson REFER ENCE: Diabe emerson Care 2016, 39(Keane ppl.1 ):s13 -s22 Not Available [facility] (Lab) [address] [place], [address], 02/05/2024 22:28:46 02/05/20 24 02/12/2024 TESTO STERO [...] en 21 and 39 years old. Noris mcdaniels et.al . JCEM 2017, 102;1 161-1 173. PMID: 03070 103. Not Available [facility] (Lab) [address] [place], [address], 02/12/2024 09:13:39 02/05/20 24 02/12/2024 TESTO STERO NE, FREE+ TOTAL LC/MS testosterone , free 7.74 NG/dL 5.00-2 1.00 Not Available [facility] (Lab) [address] [place], [address], 02/12/2024 09:13:39 02/05/2002/12/2024 TESTO STERO NE, FREE+ TOTAL LC/MS % free testosterone 2.31 % 1.50-4 .20 Perfo rmed at: [facility] [place] [address] , [place] [address] Lab Direc tor: Malina miranda MD, Phone : [phone] Not Available [facility] (Lab) [address] [place], [address], 02/12/2024 09:13:39 02/26/2002/26/2024 CBC/C OMPLE TE BLD COUNT W/DIF F white blood cells 6.8 x10'3 /uL 4.2-10 .8 Not Available [facility] (Lab) [address] [place], [address], 02/26/2024 19:56:55 02/26/20 24 02/26/2024 CBC/C OMPLE TE BLD COUNT W/DIF F red blood cells 4.08 x10'6 /uL 4.10-5 .80 low Not Available [facility] (Lab) [address] [place], [address], 02/26/2024 19:56:55 02/26/20 24 02/26/2024 CBC/C OMPLE TE BLD COUNT W/DIF F hemoglobin 12.3 g/dL 13.2-1 7.0 low Not Available [facility] (Lab) [address] [place], [address], 02/26/2024 19:56:55 02/26/20 24 02/26/2024 CBC/C OMPLE TE BLD COUNT W/DIF F hematocrit 36.6 % 39.3-5 0.0 low Not Available [facility] (Lab) [address] [place], [address], 02/26/2024 19:56:55 02/26/20 24 02/26/2024 CBC/C OMPLE TE BLD COUNT W/DIF F mean red cell volume 89.7 fL 80.0-9 7.0 Not Available [facility] (Lab) [address] [place], [address], 02/26/2024 19:56:55 02/26/20 24 02/26/2024 CBC/C OMPLE TE BLD COUNT W/DIF F mean red cell hemoglobin 30.1 pg 27.0-3 3.0 Not Available [facility] (Lab) [address] [place], [address], 02/26/2024 19:56:55 02/26/20 24 02/26/2024 CBC/C OMPLE TE BLD COUNT W/DIF F mean RBC HGB concentratio n 33.6 g/dL 31.0-3 6.0 Not Available [facility] (Lab) [address] [place], [address], 02/26/2024 19:56:55 02/26/20 24 02/26/2024 CBC/C OMPLE TE BLD COUNT W/DIF F red cell distribution width 13.6 % 11.8-1 5.5 Not Available [facility] (Lab) [address] [place], [address], 02/26/2024 19:56:55 02/26/20 24 02/26/2024 CBC/C OMPLE TE BLD COUNT W/DIF F platelets 157 x10'3 /uL 150-40 0 Not Available [facility] (Lab) [address] [place], [address], 02/26/2024 19:56:55 02/26/20 24 02/26/2024 CBC/C OMPLE TE BLD COUNT W/DIF F mean platelet volume 10.1 fL 9.0-12 .4 Not Available [facility] (Lab) [address] [place], [address], 02/26/2024 19:56:55 02/26/20 24 02/26/2024 CBC/C OMPLE TE BLD COUNT W/DIF F neutrophils 72.6 % 39.0-7 2.0 high Not Available [facility] (Lab) [address] [place], [address], 02/26/2024 19:56:55 02/26/20 24 02/26/2024 CBC/C OMPLE TE BLD COUNT W/DIF F lymphocytes 13.0 % 16.0-4 7.0 low Not Available [facility] (Lab) [address] [place], [address], 02/26/2024 19:56:55 02/26/20 24 02/26/2024 CBC/C OMPLE TE BLD COUNT W/DIF F monocytes 10.2 % 5.0-12 .0 Not Available [facility] (Lab) [address] [place], [address], 02/26/2024 19:56:55 02/26/20 24 02/26/2024 CBC/C OMPLE TE BLD COUNT W/DIF F eosinophils 3.5 % 1.0-7. 0 Not Available [facility] (Lab) [address] [place], [address], 02/26/2024 19:56:55 02/26/20 24 02/26/2024 CBC/C OMPLE TE BLD COUNT W/DIF F basophils 0.1 % 0.0-2. 0 Not Available [facility] (Lab) [address] [place], [address], 02/26/2024 19:56:55 02/26/20 24 02/26/2024 CBC/C OMPLE TE BLD COUNT W/DIF F immature granulocytes 0.6 % 0.00-0 .50 high Not Available [facility] (Lab) [address] [place], [address], 02/26/2024 19:56:55 02/26/20 24 02/26/2024 CBC/C OMPLE TE BLD COUNT W/DIF F neutrophils, absolute count 4.96 x10'3 /uL 1.5-8. 0 Not Available [facility] (Lab) [address] [place], [address], 02/26/2024 19:56:55 02/26/20 24 02/26/2024 CBC/C OMPLE TE BLD COUNT W/DIF F lymphocytes, absolute count 0.89 x10'3 /uL 1.07-3 .43 low Not Available [facility] (Lab) [address] [place], [address], 02/26/2024 19:56:55 02/26/20 24 02/26/2024 CBC/C OMPLE TE BLD COUNT W/DIF F monocytes, absolute count 0.70 x10'3 /uL 0.29-0 .99 Not Available [facility] (Lab) [address] [place], [address], 02/26/2024 19:56:55 02/26/20 24 02/26/2024 CBC/C OMPLE TE BLD COUNT W/DIF F eosinophils, absolute count 0.24 x10'3 /uL 0.02-0 .53 Not Available [facility] (Lab) [address] [place], [address], 02/26/2024 19:56:55 02/26/20 24 02/26/2024 CBC/C OMPLE TE BLD COUNT W/DIF F basophils, absolute count 0.01 x10'3 /uL 0.01-0 .08 Not Available [facility] (Lab) [address] [place], [address], 02/26/2024 19:56:55 02/26/20 24 02/26/2024 CBC/C OMPLE TE BLD COUNT W/DIF F immature granulocytes ,absolute 0.04 x10'3 /uL 0.00-0 .05 Not Available [facility] (Lab) [address] [place], [address], 02/26/2024 19:56:55 02/26/20 24 02/26/2024 CBC/C OMPLE TE BLD COUNT W/DIF F nucleated red blood cells 0.0 % -0 Not Available [facility] (Lab) [address] [place], [address], 02/26/2024 19:56:55 02/26/20 24 02/26/2024 CBC/C OMPLE TE BLD COUNT W/DIF F NRBC# 0.00 x10'3 /uL Not Available [facility] (Lab) [address] [place], [address], 02/26/2024 19:56:55 02/26/20 24 02/26/2024 BASIC METAB OLIC PANEL sodium 134 mmol/ L 137-14 5 low Not Available [facility] (Lab) [address] [place], [address], 02/26/2024 20:42:30 02/26/20 24 02/26/2024 BASIC METAB OLIC PANEL potassium 4.0 mmol/ L 3.5-5. 1 Not Available [facility] (Lab) [address] [place], [address], 02/26/2024 20:42:30 02/26/20 24 02/26/2024 BASIC METAB OLIC PANEL chloride 97 mmol/ L 98-107 low Not Available [facility] (Lab) [address] [place], [address], 02/26/2024 20:42:30 02/26/20 24 02/26/2024 BASIC METAB OLIC PANEL carbon dioxide 27 mmol/ L 22-30 Not Available [facility] (Lab) [address] [place], [address], 02/26/2024 20:42:30 02/26/20 24 02/26/2024 BASIC METAB OLIC PANEL anion gap 14.0 mmol/ L 14-22 Not Available [facility] (Lab) [address] [facility] [place], [address], 02/26/2024 20:42:30 02/26/20 24 02/26/2024 BASIC METAB OLIC PANEL glucose 175 mg/dL 70-99 high Not Available [facility] (Lab) [address] [place], [address], 02/26/2024 20:42:30 02/26/20 24 02/26/2024 BASIC METAB OLIC PANEL BUN 26 mg/dL 8-19 high Not Available [facility] (Lab) [address] [place], [address], 02/26/2024 20:42:30 02/26/20 24 02/26/2024 BASIC METAB OLIC PANEL creatinine 1.29 mg/dL 0.66-1 .25 high Not Available [facility] (Lab) [address] [place], [address], 02/26/2024 20:42:30 02/26/20 24 02/26/2024 BASIC METAB OLIC PANEL GFR 54 Refer ence Range : Hardin ge GFR Healt hy Adult : >60 [...] calcu lator is avail able on the [facility] websi te: https :[email or web address] [email or web address] rg/pr ofess ional s/kdo qi/gf r_cal culat or Not Available [facility] (Lab) [address] [place], [address], 02/26/2024 20:42:30 02/26/20 24 02/26/2024 BASIC METAB OLIC PANEL calcium 9.6 mg/dL 8.4-10 .2 Not Available [facility] (Lab) [address] [place], [address], 02/26/2024 20:42:30 02/26/20 24 02/26/2024 IRON/ TIBC PANEL total iron binding capacity 261 mcg/d L 265-47 5 low Not Available [facility] (Lab) [address] [place], [address], 02/26/2024 20:55:05 02/26/20 24 02/26/2024 IRON/ TIBC PANEL % transferrin saturation 25 % 20-55 Not Available [facility] (Lab) [address] [place], [address], 02/26/2024 20:55:05 02/26/20 24 02/26/2024 IRON/ TIBC PANEL unsaturated iron bind capacity 195 mcg/d L 126-38 2 Not Available [facility] (Lab) [address] [place], [address], 02/26/2024 20:55:05 02/26/20 24 02/26/2024 IRON/ TIBC PANEL iron 66 mcg/d L 42-175 Not Available [facility] (Lab) [address] [place], [address], 02/26/2024 20:55:05 02/26/20 24 02/26/2024 TRUDY TIN ferritin 35 NG/mL 17.9-4 64 Not Available [facility] (Lab) [address] [place], [address], 02/26/2024 21:17:00 02/26/20 24 02/26/2024 VITAM IN B12 (DOC AKASH ) vb12 485 pg/mL 239-93 1 Not Available [facility] (Lab) [address] [place], [address], 02/26/2024 22:20:12 02/26/20 24 02/26/2024 FOLAT E, SERUM /PLAS MA folate >20.0 NG/mL 2.76-2 0.0 Not Available [facility] (Lab) [address] [place], [address], 02/26/2024 22:20:14 02/18/20 24 02/18/2024 US, stella x, cece id arter y No observ ation record ed. [place] [id number], [place], [address], 02/20/2024 12:51:48 04/13/20 24 04/13/2024 US, abdom en No observ ation record ed. [facility] [address] [place], [address], 05/05/2024 17:09:52 05/12/20 24 05/12/2024 XR, chest , 2 view No observ ation record ed. [email or web address] [facility] [address] [place], [address], 05/17/2024 14:46:02 Result Notes None recorded. Problems Name Problem SNOMED Code Status Onset Date Resolution Date Notes Provider Name and Address Organization Details Recorded Time Pain of left knee joint 3839366205913 07 Active 2022 Merari Adams MD [address], [place], [address] , [facility] [employer] [facility] [employer] 3 17:52:48 Acute sinusitis 93691116 Active 2022 MAICOL Díaz [address], [place], [address] , [facility] [employer] [facility] [employer] 3 09:49:18 Hyponatrem ia 81752545 Active 2022 Merari Adams MD [address], [place], [address] , [facility] [employer] [facility] [employer] 3 16:30:08 Constipati on 38445521 Active 2022 Merari Adams MD [address], [place], [address] , [employer] [place] [facility] [employer] [facility] [employer] 3 18:07:04 Fatigue 59821190 Active 2022 Merari Adams MD [address], [place], [address] , [employer] [facility] [employer] [facility] [employer] 17:28:44 Erythrocyt e sedimentat ion rate above reference range 206738272 Active 2023 Merari Adams MD [address], [place], [address] , [employer] [place] [facility] [employer] [facility] [employer] 4 12:27:45 Pain of left hip joint [id number] 00 Active 2023 Merari Adams MD [address], [place], [address] , [employer] [place] [facility] [employer] [facility] [employer] 12:04:27 Vertigo 133339744 Active 2023 Merari Adams MD [address], [place], [address] , [employer] [place] [facility] [employer] [facility] [employer] 16:14:25 Anemia 302533765 Active 2023 Merari Adams MD [address], [place], [address] , [employer] 4 08:12:14 Carotid artery stenosis 06705692 Active 2023 Merari Adams MD [address], [place], [address] , [employer] 4 08:00:46 Serum creatinine above reference range 462572718 Active 2023 Merari Adams MD [address], [place], [address] , [employer] 4 19:12:38 Benign essential hypertensi on 5389279 Active Not Available [facility] 3 04:53:53 Dry skin 29606345 Active Not Available [facility] 3 04:53:53 Non-alcoho lic fatty liver 057355116 Active Not Available [facility] 3 04:53:53 Cellulitis and abscess of face 881966757 Active Not Available [facility] 3 04:53:53 Callosity 935237432 Active Not Available [facility] 3 04:53:53 Gastroesop hageal reflux disease 024433409 Active Not Available [facility] 3 04:53:53 Benign prostatic hyperplasi a 237511473 Active Not Available [facility] 3 04:53:53 Edema 265958707 Active Not Available [facility] 3 04:53:53 Type 2 diabetes mellitus without complicati on 840993115 Active Not Available [facility] 3 04:53:53 Depressive disorder 13463461 Active Not Available [facility] 3 04:53:53 Macerated skin 6426198 Active Not Available [facility] 3 04:53:53 Seasonal allergic rhinitis 463455805 Active Not Available [facility] 3 04:53:53 Sinusitis 75921535 Active Not Available [facility] 3 04:53:53 Contact dermatitis 34682821 Active Not Available [facility] 3 04:53:54 Seborrheic keratosis of scalp 876152710 Active Not Available [facility] 3 04:53:54 Hypogonadi sm 03108038 Active Not Available [facility] 3 04:53:54 Atrial fibrillati on 56101005 Active Not Available [facility] 3 04:53:54 Dysuria 23633340 Active 2021 Not Available [facility] 3 04:53:54 Hyperlipid emia 88917747 Active Not Available [facility] 3 04:53:54 Essential hypertensi on 62447282 Active 2018 Not Available [facility] 3 04:53:54 Tinea pedis 3112866 Active Not Available [facility] 3 04:53:54 Allergic rhinitis 44227721 Active Not Available [facility] 3 04:53:54 Diabetes mellitus 64282639 Active Not Available [facility] 3 04:53:54 Abnormal liver function 62082241 Active Not Available [facility] 3 04:53:55 Skin lesion 99459519 Active Not Available [facility] 3 04:53:55 Problem Notes None recorded. Procedures Surgical History Date Name Laterality Status Provider Name and Address Organization Details Recorded Time 05/18/20 24 Cortisone Injection (Dequervains/ Greater Trochantric/ Lateral Epicondylitis/ Shoulder/ Subacromial Space/ Knee or Trigger Finger) completed EDWARDO Lui [address], [place], [address], [facility] [email or web address] 05/18/2024 12:29:50 01/13/20 24 Medicare Wellness CPT Code, subsequent completed Kavya Aldana RN [place] [employer] [facility] S[employer]cubism 01/13/2024 15:59:28 10/14/19 24 Cortisone Injection (Dequervains/ Greater Trochantric/ Lateral Epicondylitis/ Shoulder/ Subacromial Space/ Knee or Trigger Finger) completed Merari Adams MD [address], [place], [address], [facility] [employer] [facility] [employer] [facility] 10/14/2023 12:46:14 10/01/20 23 colonoscopy completed Merari Adams MD [address], [place], [address], [facility] [employer] [facility] [employer] [facility] 10/14/2023 12:26:01 04/02/20 23 Cortisone Injection (Dequervains/ Greater Trochantric/ Lateral Epicondylitis/ Shoulder/ Subacromial Space/ Knee or Trigger Finger) completed Merari Adams MD [address], [place], [address], [employer] [facility] [employer] [facility] 04/11/2023 12:08:40 07/25/20 21 ENDOSCOPY, NASAL/SINUS, W/ MAXILLARY ANTROSTOMY & TISSUE REMOVAL (SURG) completed Not Available [facility] 12/11/2022 05:05:12 nasal septoplasty completed Not Available [facility] 12/11/2022 04:43:22 nasal endoscopy with maxillary antrostomy completed Not Available [facility] 12/11/2022 04:43:22 Imaging Results None recorded. Procedure Notes None recorded. Medical Equipment None Reported. Allergies Allergen ID Allergen Name Allergen Category Reaction Reaction Severity Criticality Documentation Date Start Date Code Code System Note Provider Name and Address Organization Details Recorded Time 8411 Substance with sulfonami de structure and antibacte rial mechanism of action (substanc e) medicatio n Not available Not available Not available 12/11/2022 25438 8003 SNOMED Not Available [facility] 05:04:52 Medications Name Sig Start Date Stop [...] right knee x 1 11/10 completed [facility] [phone] Not Available Not Available Not [...] ml IM x 1 11/10 completed [facility] [address] -01 Not Available Not Available Not [...] azelastine 137 mcg (0.1 %) nasal spray Holdrege 2 sprays twice a day by intranasa [...] Not Available No t Available Fluzone High-Dose 7630-1521 (PF) 180 mcg/0.5 mL intramuscul ar syringe active Not Available Not Available N ot Available Xhance 93 mcg/actuati on breath activated aerosol Holdrege 2 sprays twice a day by intranasa l route for 30 days. 01/12 completed Not Available Not Available Not Available Bydureon BCise 2 mg/0.85 mL subcutaneou s auto-inject or 01/12 completed Not Available Not Available Not Available Xyosted 100 mg/0.5 mL subcutaneou s auto-inject or Inject 0.5 mL every week by subcutane ous route. 06/08 completed Not Available Not Available Not Available Fluad 2018- 65yr up(PF)45 mcg(15 mcgx3)/0.5 mL intramuscul ar syringe PHARMACIS T ADMINISTE RED IMMUNIZAT ION ADMINISTE RED AT TIME OF DISPENSIN G active Not Available Not Available No t Available Fluad Quad 8412-3081(6 5yr up)(PF) 60 mcg (15 mcg x [...] and Address Organization Details Last Updated DateTime 182.88 cm 30.7 kg/m2 447766. 88 g 97.5 [degF] 79 /min 97 % 97 % 160 mm[Hg] 80 mm[Hg] Kavya Aldana RN [facility] S-cubism 16:03:19 Date Recorded Body height Provider Name an d Address Organization Details Last Updated DateTime 02/04/2024 182.88 cm Makenna Sanders RN [facility] [employer] 02/04/2024 15:24:44 Date Recorded Body height Provider Name an d Address Organization Details Last Updated DateTime 02/26/2024 182.88 cm Makenna Sanders RN [facility] [employer] 02/26/2024 11:11:32 Date Recorded Body height Body mass index (BMI) Body weight Body temperature Heart rate Oxygen saturation Oxygen saturation in Arterial blood by Pulse oximetry Systolic blood pressure Diastolic blood pressure Provider Name and Address Organization Details Last Updated DateTime 4 182.88 cm 30.1 kg/m2 777947. 51 g 98.7 [degF] 78 /min 93 % 93 % 166 mm[Hg] 84 mm[Hg] Kassy Mclaughlin RN [place] [facility] S-cubism 4 12:09:49 Social History Question Answer Notes LastModified by [employer] Details LastModified Time Tobacco Smoking Status Never Smoker Not Available [facility] 12/11/2022 04:41:28 In The 14 Days Before Symptom Onset, Have You Had Close Contact With A Laboratory-confirm ed COVID-19 While That Case Was Ill? No [id number] Information not available 12/11/2022 In The 14 Days Before Symptom Onset, Have You Had Close Contact With A Person Who Is Under Investigation For COVID-19 While That Person Was Ill? No [id number] Information not available 12/11/2022 What Was The Date Of Your Most Recent Tobacco Screening? 01/13/2024 Information not available 01/13/2024 Have You Recently Traveled Abroad? No [id number] Information not available 12/11/2022 Sex: Unknown Functional Status Question Answer Note LastModified by [employer] Details LastModified Time What is your level of alcohol consumption? None [id number] Information not available 12/11/2022 Mental Status None recorded. Family History Relationship Description Onset Age of this Age Resolved Age Notes LastModified by Organization Details LastModified Time Father No current problems or disability [id number] Not available 12/11/2022 04:43:26 Mother No current problems or disability [id number] Not available 12/11/2022 04:43:26 Notes:CAD Medical History [...] HAVE YOU BEEN HOSPITALIZED OR SEEN IN [facility] IN THE PAST YEAR ? N STROKE/TIA [...] high-dose, quadrivalent, PF 2 completed Not Available [facility] 12/11/2022 05:04:30 Influenza, high-dose, trivalent, PF 8 completed Not Available [facility] 12/11/2022 05:04:30 Pneumococcal conjugate PCV 13 8 completed Not Available [facility] 12/11/2022 05:04:30 Influenza, high-dose, trivalent, PF 6 completed Not Available [facility] 12/11/2022 05:04:31 Influenza, high-dose, trivalent, PF 5 completed Not Available [facility] 12/11/2022 05:04:31 Past Encounters Encounter ID Performer Location Encounter Start Date Encounter Closed Date Diagnosis/Indication Diagnosis SNOMED-CT Code Diagnosis ICD10 Code Diagnosis Note [id number] Merari Adams MD [facility] [address] [place] [address] 01/02/2021 00:00:00 01/03/2021 12:40:19 [id number] S_Histor ic[facility] [place] [address] [place] [address] 01/10/2021 00:00:00 01/10/2021 11:15:18 [id number] Mainor Hays MD [facility] [place] [address] [place] [address] 01/25/2021 00:00:00 01/25/2021 10:57:23 [id number] S_Histor ic_Gateway [facility] [place] [address] [place] [address] 06/20/2021 00:00:00 06/20/2021 14:34:33 [id number] Mainor Hays MD [facility] [place] [address] [place] [address] 06/28/2021 00:00:00 06/28/2021 15:42:49 [id number] Merari Adams MD [facility] [place] [address] [place] [address] 07/16/2021 00:00:00 07/16/2021 17:49:00 [id number] Mainor Hays MD [facility] [place] [address] [place] [address] 08/02/2021 00:00:00 08/02/2021 16:14:35 [id number] Mainor Hays MD [facility] [place] [address] [place] [address] 08/23/2021 00:00:00 08/23/2021 16:18:26 [id number] Merari Adams MD [facility] [place] [address] [place] [address] 10/16/2021 00:00:00 10/16/2021 18:22:03 [id number] Merari Adams MD [facility] Primary [facility] [place] [address] [place] [address] 01/24/2022 00:00:00 02/03/2022 17:18:26 [id number] Merari Adams MD [facility] [place] [address] [place] [address] 04/04/2022 00:00:00 04/04/2022 10:50:48 [id number] Merari Adams MD [facility] Primary [facility] [place] [address] [place] [address] 06/04/2022 00:00:00 06/11/2022 17:56:01 [id number] Merari Adams MD [facility] [place] [address] [place] [address] 07/17/2022 00:00:00 07/17/2022 14:05:06 [id number] Merari Adams MD [facility] [place] [address] [place] [address] 08/28/2022 00:00:00 09/10/2022 18:29:33 [id number] MAICOL Díaz [facility] [place] [address] [place] [address] 09/27/2022 00:00:00 09/27/2022 11:57:24 [id number] Merari Adams MD [facility] [place] [address] [place] [address] 12/30/2022 17:21:07 12/30/2022 18:34:01 Pain of left knee joint 2200541067 69767 M25.562 left knee injection donef/u in 4 weeks or sooner if needed [id number] Merari Adams MD [facility] [place] [address] [facility] [address] [place] [address] 02/26/2023 14:59:54 02/26/2023 15:43:45 Diabetes mellitus 52588196 E11.9 stop glipizides tart mounjaro 2.5 mg sc qweek [id number] Merari Adams MD [facility] [place] [address] [facility] [address] [place] [address] 04/02/2023 16:09:34 04/02/2023 17:13:10 Diabetes mellitus 82261096 E11.9 stay off glipizidei ncrease ozempic 0.5 Acute sinusitis 57099472 J01.90 Pain of le ft knee joint 5218025563 17022 M25.562 left knee injection donef/u in 4 weeks or sooner if needed Hyponatremia 17171800 E8 7.1 [id number] Merari Adams MD [facility] Primary [facility] [place] [address] [facility] [address] [place] [address] 05/14/2023 09:16:26 05/14/2023 09:42:44 Diabetes mellitus 49709519 E11.9 doing wellstay off glipizidei ncrease ozempic 1 mg sc qweekf/u in 4 weeks Hyponatremia 42449937 E8 7.1 [id number] Merari Adams MD [facility] [place] [address] [facility] [address] [place] [address] 05/15/2023 14:59:24 09/03/2023 18:00:15 [id number] Merari Adams MD [facility] [place] [address] [facility] [address] [place] [address] 09/15/2023 11:12:24 09/15/2023 15:05:10 [id number] Merari Adams MD [facility] [place] [address] [facility] [address] [place] [address] 10/14/2023 12:15:06 10/14/2023 13:00:17 Screening for malignant neoplasm of prostate 024038452 Z12.5 Erythrocyt e sedimentation rate above reference range 725888888 R70.0 Pain of le ft knee joint 2012148781 50687 M25.562 left knee injection donef/u in 4 weeks or sooner if needed [id number] Merari Adams MD [facility] [place] [address] [facility] [address] [place] [address] 01/13/2024 15:55:06 01/13/2024 16:43:06 Adult health examination 175600803 Z00.00 PSA normal 11/05check fasting labscolono scopy 10/01/23, february repeat 2025prevna r 13 given 2018recomm end flu yearlyreco mmend covid boosterrec ommend shingrix vaccine series Vertigo 401197644 R42 check carotid UScheck labs reviewed s/s that warrant urgent/ancelmo rgent eval in meantime Acute sinusitis 36861352 J01.90 call/retur n if no improvemen t in 1-2 days or sooner if neededrevi ewed s/s that warrant urgent/ancelmo rgent eval in meantime Atrial fibrillation 4943 6004 I48.91 stable Benign ess ential hypertension 4311361 I10 stable Benign pro static hyperplasia 985802489 N40.0 PSA normal 11/05 Diabetes mellitus 880226 09 E11.9 stableon ARB and statin Hyperlipidemia 57558827 E78.5 Z79.899 stable Hypogonadism 90147094 E2 9.1 stable [id number] Merari Adams MD [facility] Primary [facility] [place] [address] [place] [address] 02/04/2024 14:31:19 02/04/2024 16:04:39 [id number] Merari Adams MD [facility] Primary [facility] [place] [address] [place] [address] 02/05/2024 09:18:30 02/05/2024 09:41:18 [id number] Merari Adams MD [facility] Primary [facility] [place] [address] [place] [address] 02/26/2024 11:10:18 02/26/2024 11:31:38 [id number] JULIANNA Lui-Soumya [facility] Primary [facility] [place] [address] [place] [address] 05/18/2024 12:03:14 05/18/2024 12:39:17 Pain of left knee joint 8480155901 98956 M25.562 -ROM and strength are intact with pain-left knee injection given Type 2 kristen betes mellitus without complication 196056142 E11.9 currently taking metformin, januvia, and glipizides cheduled to see endocrinol ogy in August Health Concerns Section Related Observation LastModified by Organization Detai ls LastModified Time None Recorded Concern Status LastModified by Organization Details LastModified Time None Recorded Advance Directives Directive None Recorded Payers Insurance Date Sequence Insurance Name Policy Number Policy East Covered Member ID East Member ID Guarantor Name 05/15/2024 1 [employer] (MEDICARE REPLACEMENT/ ADVANTAGE - HMO) [id number] Trevor Aldana [id number] Trevor Aldana 01/13/2024 1 [employer] (MEDICARE REPLACEMENT/ ADVANTAGE - PPO) [id number] Trevor Aldana [id number] Trevor Aldana Notes Date Note Type Note [...] then resolves. Merari Adams MD [address], [place], [address], [employer] 01/13/2024 19:29:13 05/18/2024 text/html pt is here for knee injection EDWARDO Lui [address], [place], [address], [employer] 05/18/2024 12:47:07
--- OUTSIDE RECORDS SUMMARY | 2025-03-27 16:39 | XMS_ITS | Clinical Summary ---
Author Organization [facility] Address [address] [place] [address] Care Team Providers Care Family Consultant Name Role Phone Unavailable Primary Care Provider Unavailabl e Source Comments [facility],non-owned Affiliates and Associated Physician Practices is amultiple site organization consisting of ambulatory clinics and hospital sitesin [place], [place], [place] and [place]. This disclosure is being madepursuant to the Care Everywhere program and may not contain all information available regarding this patient. 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
--- OUTSIDE RECORDS SUMMARY | 2025-03-27 16:39 | XMS_ITS | CONTINUITY OF CARE DOCUMENT ---
Author Name efraín kenny Address Unknown Organization [facility] Address [address] [place] [address] [address] [place] [address] Phone [phone] Care Team Providers Care Cash Register Repairer Name Role Phone Sharan Carbajal MD Unavailable [phone] Sharan Carbajal MD Unavailable [phone] INSURANCE PROVIDERS Payer name Policy type / Coverage type [place] red democrat ID AETNA MEDICARE GOLD ADVANTAGE HMO Medicare [id number]
--- OUTSIDE RECORDS SUMMARY | 2025-03-27 16:39 | XMS_ITS | Clinical Summary ---
Author Organization [facility] Address [address] [place] [address] Care Team Providers Care Feed And Farm Management Adviser Name Role Phone Unavailable Primary Care Provider [...] 11:49 AM CDT Height 180.3 cm (5' 11) 05/06/2024 11:49 AM CDT Body Mass Index 31.52 05/06/2024 11:49 AM CDT Plan of Treatment Health Maintenance Due Date Last Done Comments Pneumococcal Vaccine: 50+ Years (2 of 2 - PPSV23, PCV20, or PCV21) 05/27/2018 04/01/2018 Diabetes: Ophthalmology Exam 03/09/2024 Diabetes: [...] children. This test was performed on the [employer] c503 platform. Effective 12/29/23, a change in test platforms from the [employer] to the Moe amber c503 may have shifted HbA1c results compared to historical results. Based on laboratory validation testing conducted at [facility], the Moe platform relative to the [employer]na [...] AM CDT 05/03/2024 7:41 AM CDT Narrative [facility] - 05/06/2024 1:40 PM CDT FASTING:YES FASTING: YES Resulting Agency Comment Performing Organization Information: Site ID: SL Name: [id number] Address: [address] [place] [address] Director: Marlene Doty us Ranjit Knox MD LAB BLOOD ORDERABLES Final R esult [facility] See order comments [place] [address] from Last 3 Months or Most Recently Relevant to Health Maintenance [id number] Advance Directives Documents on File Type Date Recorded Patient Manager Of Clinical Expl anation Advance Care Planning 05/10/2024 3:00 PM
[2025-03-27 16:43] VITALS: BP 144/59; PULSE 87; RESP 18; TEMP 36.8; O2SAT 97
== END 2025-03-27 17:00 | disposition home or self-care (01) ==
PROVIDERS: Emergency Provider Nurse Practitioner; PCP Family Medicine
DX: J32.9 Chronic sinusitis, unspecified (principal); E11.9 Type 2 diabetes mellitus without complications; Z79.84 Long term (current) use of oral hypoglycemic drugs; K76.0 Fatty (change of) liver, not elsewhere classified; N40.0 Benign prostatic hyperplasia without lower urinary tract symptoms; E78.2 Mixed hyperlipidemia; E78.00 Pure hypercholesterolemia, unspecified; I10 Essential (primary) hypertension; E66.9 Obesity, unspecified; Z68.28 Body mass index [BMI] 28.0-28.9, adult; D50.9 Iron deficiency anemia, unspecified
CPT/HCPCS: 99213; G0463

== ENCOUNTER 2025-05-05 11:20 | Outpatient (CLI) | payer MEDICARE, SELFPAY ==
--- NOTE | ~2025-05-05 | CT_ITS ---
EXAMINATION: CT sinus wo con DATE: 05/05/2025 11:37 INDICATION: Benign proximal vertigo. TECHNIQUE: Computed tomography (CT) of the paranasal sinuses was performed without intravenous contra st. The dose-length product was 276.47 mGy-cm. Automated exposure control and iterative reconstructio n technique were employed. COMPARISON: CT dated 06/25/2021 FINDINGS: There is moderate mucosal thickening of the maxillary, sphenoid, ethmoid and frontal sinuse s. There are surgical changes of prior ostiomeatal resection bilaterally. Rightward nasal septal kaye ation. There is mild mucoperiosteal reaction of the maxillary sinuses. IMPRESSION: 1. Chronic pansinus disease. Reviewed, dictated and finalized at location A.
== END 2025-05-05 11:21 | disposition home or self-care (01) ==
PROVIDERS: PCP Family Medicine; Visit Provider Otolaryngology
DX: H81.13 Benign paroxysmal vertigo, bilateral (principal); J32.1 Chronic frontal sinusitis; H69.90 Unspecified Eustachian tube disorder, unspecified ear; G47.33 Obstructive sleep apnea (adult) (pediatric); H81.90 Unspecified disorder of vestibular function, unspecified ear; J01.01 Acute recurrent maxillary sinusitis
CPT/HCPCS: 70486

== ENCOUNTER → 2025-05-09 09:13 | Outpatient (CLI) | payer MEDICARE, SELFPAY ==
--- NOTE | ~2025-05-09 | XR_ITS ---
EXAMINATION: XR chest 2V DATE: 05/09/2025 09:30 INDICATION: Fatigue TECHNIQUE: PA and lateral views of the chest were obtained. COMPARISON: Chest radiograph date 7 FINDINGS: Focal airspace opacity in the basilar left lower lobe which could be due to pneumonia. The opacity euceda s a relatively smooth curve medial margin which suggests eventration of the diaphragm or malignant ma ss as other potential etiologies. Remainder the lungs are clear. No pneumothorax or definitive pleura l effusion. Heart size is normal. IMPRESSION: 1. Somewhat masslike opacity in the left lower lung zone which could be due to pneumonia, eventration of the diaphragm or malignancy. Recommend further evaluation with chest CT, preferably with contrast . Reviewed, dictated and finalized at location A. IMPRESSION: 1. Somewhat masslike opacity in the left lower lung zone which could be due to pneumonia, eventration of the diaphragm or malignancy. Recommend further evalua tion with chest CT, preferably with contrast.
--- OUTSIDE RECORDS SUMMARY | 2025-05-09 09:31 | XMS_ITS | Referral Summary ---
Author Organization [facility] Address [address] [place] [address] Care Team Providers Care Biodiesel Engine Specialist Name Role Phone Art Trevino MD Primary Care Provider [phone] Encounters Date Type Department Care Team Description 2025 Orders Only [facility] Diabetes and Endocrinology [address] [place] [address] Stephanie Hooker NP from Last 3 Months Allergies Active Allergy [...] (325 mg total) by mouth daily Active eewob-8i-fxc-epa -fish oil 300-1,000 mg capsule Take by [...] to now 7.3%. Will send me a ganttot if he'd like for me to send [...] daily DM eye exam fall 2023 at [facility]. Letter sent to get copy of report. Will update labs today. Verified that he uses [employer]. Aware to check results/results letter in mychart. Will contact by phone if needed. Discussed [...] infection. Assessment & Plan (10/14/2024 11:19 AM RETAIL ACCOUNT MANAGER): Chronic, uncontrolled but stable Hemoglobin A1c [...] Rosuvastatin 20mg. Last lipid panel: 05/03/24 LDL=56, AB=620. Assessment & Plan (10/14/2024 11:19 AM RETAIL ACCOUNT MANAGER): Chronic, stable Continue rosuvastatin Hypertension associated with diabetes 10/14/2024 Assessment & Plan (01/19/2025 2:21 PM CDT): Chronic problem. Controlled on current carvedilol 25mg bid, valsartan-HCTZ 320- 25mg daily, amlodipine 10mg daily Assessment & Plan (10/14/2024 11:19 AM RETAIL ACCOUNT MANAGER): Chronic, well controlled Continue amlodipine, valsartan/hydrochlorothiazide [...] on file Legal Sex Male 12:21 PM RETAIL ACCOUNT MANAGER Gender Identity Not on file Sexual [...] associated with type 2 diabetes mellitus (HCC) ALBUMIN CREATININE RATIO, URINE Routine 01/19/2025 2:59 PM CDT Type 2 diabetes mellitus with stage 2 chronic kidney disease, without long-term current use of insulin (HCC) Hypertension associated with diabetes (HCC) POCT HEMOGLOBIN A1C Routine 01/19/2025 2 :10 PM CDT Type 2 diabetes mellitus with stage 2 chronic kidney disease, without long-term current use of insulin (HCC) DIABETES EYE EXAM Routine 08/25/2024 7:17 AM RETAIL ACCOUNT MANAGER from Last 3 Months or Most [...] BLOOD ORDERABLE S Final Result [facility] [address] Department [place] [address] * Albumin Creatinine Ratio, Urine (01/19/2025 2:59 PM CDT) Albumin Ur <12.0 mg/L Comment: Interpretive Data No reference range established. Current interpretive data was last revised 2019. Creatinine Ur 42.8 mg/dL [facility] Comment: Interpretive Data No reference range established. Current interpretive data was last revised 2019. Albumin Creatinine Ratio, Ur <28 1 - 29 mg/g [facility] Urine 01/19/2025 2:59 PM CDT 01/19/2025 9:18 PM CDT us Efe Laurent MD LAB URINE ORDERABLE S Final Result [facility] [address] Department [place] [address] * (ABNORMAL) Lipid panel (01/19/2025 2:59 PM [...] NCEP Expert Panel. Circulation 2004;110:227 3. Kemar Small al. BRYANNA Cardiol. 2019February 10;5(5):540-548. doi: 10.1001/jamacardio.2020.0013 Current Interpretive Data was last revised on 2024. Non-HDL Cholesterol 83 mg/dL [facility] Comment: Interpretive Data Ages < [...] last revised on 2018. Chol/HDL ratio 3 [facility] Blood 01/19/2025 2:59 PM CDT 01/19/2025 9:18 PM CDT us Efe Laurent MD LAB BLOOD ORDERABLE S Final Result [facility] [address] Department [place] [address] * (ABNORMAL) POCT hemoglobin A1c (01/19/2025 2:10 PM CDT) Hemoglobin A1C, POC 7.3 4.0 - 5.6 % Blood 01/19/2025 2:10 PM CDT us Stephanie Hooker NP POINT OF CARE TEST ORDERA BLES Final Result * (ABNORMAL) DIABETES EYE EXAM (08/25/2024 7:17 AM RETAIL ACCOUNT MANAGER) us Historical Provider HEALTH MAINTENANCE Final Result from Last 3 Months or Most Recently Relevant to Health Maintenance Insurance TNA MEDICARE GOLD HU[employer] CHOICE MEDICARE PPO AETNA MEDICARE GOLD Care Teams Biodiesel Engine Specialist Relationship Specialty Start Date End Date Art Trevino MD [address] [address] PCP - General Family Medicine 09/20/24
--- OUTSIDE RECORDS SUMMARY | 2025-05-09 09:31 | XMS_ITS | Clinical Summary ---
Author Organization [facility] Address [address] [place] [address] Care Team Providers Care Building Attendant Name Role Phone Unavailable Primary Care Provider Unavailabl e Source Comments [facility],non-owned Affiliates and Associated Physician Practices is amultiple site organization consisting of ambulatory clinics and hospital sitesin [place], [place], [place] and [place]. This disclosure is being madepursuant to the Care Everywhere program and may not contain all information available regarding this patient. 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
--- OUTSIDE RECORDS SUMMARY | 2025-05-09 09:31 | XMS_ITS | Clinical Summary ---
Author Organization [facility] Address [facility] [place] [address] Care Team Providers Care Tank Builder Supervisor Name Role Phone Merari Adams MD Primary Care Provider [phone] Allergies Active Allergy Reactions Criticality Noted Date [...] 6:13 PM CDT Height 185.4 cm (6' 1) 03/13/2020 6:13 PM CDT Body Mass Index [...] this topic Medical Devices Implanted Type Area Vocal Performer Device Identifier Shelf Expiration Date Model / Serial / Lot Iol Toric Lens [id number] - [id number] Implanted:Qty: 1 on 03/20/2020 by Avni Astorga MD at [facility] Lens Left: Eye [employer] 07/12/2022 [id number] / [id number] / [place] [address] HUMANA Care Teams Tank Builder Supervisor Relationship Specialty Start Date End Date Merari Adams MD [address] [place] [id number] PCP - General FAMILY PRACTICE 03/15/20
--- OUTSIDE RECORDS SUMMARY | 2025-05-09 09:31 | XMS_ITS | Encounter Summary ---
Author Organization [facility] Address [address] [place] [address] Care Team Providers Care Make Ready Worker Name Role Phone Merari Adams MD Primary Care Provider [phone] Encounter Details Date Type Department Care Team (Late st Contact Info) Description 03/13/2020 Prep for Procedure [facility] One Day Services [address] [place], [place] [id number] Avni Astorga MD [address] [facility] [address] [place] [address] Social History Tobacco Use Types [...] DETECTED NOT DETECTED 03/18/2020 1:54 PM CDT [facility] Comment: A Not Detected (negative) test result [...] providers and patients using the following websites: https://www.[employer].Odd Geology/home/Covid-19/HCP/QuestIVD/fact- sheet.html https://www.[employer].Odd Geology/home/Covid-19/Patients/ QuestIVD/fact-sheet.html This test has been authorized by the FDA under an Emergency Use Authorization (EUA) for use by authorized laboratories. Due to the current public health emergency, [employer] is receiving a high volume of samples [...] about COVID-19 can be found at the [employer] website: www.[employer].Odd Geology/Covid19. Test performed at [facility] [place] [address] [place] [address] Director: JOSIAH MURILLO DO,MPH NASOPHARYNGEAL SWAB / Unknown 03/17/2020 11:31 AM CDT us Avni Astorga MD MICROBIOLOGY - GENERAL ORDERAB LES Final Result [facility] [id number] [place] [id number] documented in this encounter Visit Diagnoses Diagnosis Pre-op testing- Primary Preoperative examination, unspecified documented in this encounter Additional Health Concerns Infection Onset Date Last Indicated Resolved Time COVID-19 Rule Out 03/17/2020 03/17/2020 03/18/2020 1:55 PM CDT documented as of this encounter Care Teams Make Ready Worker Relationship Specialty Start Date End Date Merari Adams MD [address] [place] [address] PCP - General FAMILY PRACTICE 03/15/20 documented as of this encounter
--- OUTSIDE RECORDS SUMMARY | 2025-05-09 09:31 | XMS_ITS | Clinical Summary ---
Author Organization [facility] Address [address] [place] [address] Care Team Providers Care Reception Agent Name Role Phone Unavailable Primary Care Provider [...] Hemoglobin A1C 08/03/2024 05/03/2024, 01/12 Influenza Vaccine (#1) 2025 , 07/15/2018, 09/17/2016, Additional history exists Hepatitis B [...] children. This test was performed on the [employer]ik[employer] c503 platform. Effective 12/29/23, a change in test platforms from the Castorena Heel Top Lift Splitter to the Moe amber c503 may have shifted HbA1c results compared to historical results. Based on laboratory validation testing conducted at [facility], the Moe platform relative to the Castorena [...] Performing Organization Information: Site ID: SL Name: 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
--- OUTSIDE RECORDS SUMMARY | 2025-05-09 09:31 | XMS_ITS | Clinical Summary ---
Author Organization [facility] Address [address] [place] [address] Care Team Providers Care Parts Processor Name Role Phone Art Trevino MD Primary Care Provider [phone] Allergies Active Allergy Reactions Criticality Noted Date [...] (325 mg total) by mouth daily Active qtrlz-7k-ubk-epa -fish oil 300-1,000 mg capsule Take by [...] to now 7.3%. Will send me a [employer]t if he'd like for me to send [...] daily DM eye exam fall 2023 at [facility]. Letter sent to get copy of report. Will update labs today. Verified that he uses [facility]. Aware to check results/results letter in [facility]. Will contact by phone if needed. Discussed [...] infection. Assessment & Plan (10/14/2024 11:19 AM CHIEF INSPECTOR): Chronic, uncontrolled but stable Hemoglobin A1c 8.2%, [...] Rosuvastatin 20mg. Last lipid panel: 05/03/24 LDL=56, HO=572. Assessment & Plan (10/14/2024 11:19 AM CHIEF INSPECTOR): Chronic, stable Continue rosuvastatin Hypertension associated with diabetes 10/14/2024 Assessment & Plan (01/19/2025 2:21 PM CDT): Chronic problem. Controlled on current carvedilol 25mg bid, valsartan-HCTZ 320- 25mg daily, amlodipine 10mg daily Assessment & Plan (10/14/2024 11:19 AM CHIEF INSPECTOR): Chronic, well controlled Continue amlodipine, valsartan/hydrochlorothiazide Facial pressure 08/04/2018 Chronic sinusitis 08/04/2018 Deviated nasal septum 08/04/2018 Shortness of breath 02/26/2014 Overview (01/16/2017): SOB (shortness of breath) Cardiac tamponade 02/26/2014 Overview (01/16/2017): Cardiac tamponade Paroxysmal atrial fibrillation 02/26/2014 Overview (01/16/2017): AF (paroxysmal atrial fibrillation) Encounters Date Type Department Care Team Description 2025 Orders Only [facility] Medical Group Diabetes and Endocrinology [address] [place] [phone] Stephanie Hooker 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 from Last 3 Months Immunizations Immunization Administration [...] on file Legal Sex Male 12:21 PM CHIEF INSPECTOR Gender Identity Not on file Sexual Orientation [...] 2 - PPSV23) 05/27/2018 04/01/2018 Covid-19 Vaccine (2023-2 5 season) 2024 2022, 09/10/2021, 12/29/2020, Additional history exists Influenza Vaccine (#1) 2025 , 07/16/2021, 07/05/2020, Additional history exists Hemoglobin A1C [...] without long-term current use of insulin (HCC) HM DIABETES EYE EXAM Routine 08/25/2024 7:17 AM CHIEF INSPECTOR from Last 3 Months or Most Recently [...] LAB BLOOD ORDERABLE S Final Result [facility] [address] [place] [address] * Albumin Creatinine Ratio, Urine (01/19/2025 2:59 PM CDT) Albumin Ur <12.0 mg/L Comment: Interpretive Data No reference range established. Current interpretive data was last revised 2019. Creatinine Ur 42.8 mg/dL [facility] Comment: Interpretive Data No reference range established. Current interpretive data was last revised 2019. Albumin Creatinine Ratio, Ur <28 1 - 29 mg/g [facility] Urine 01/19/2025 2:59 PM CDT 01/19/2025 9:18 PM CDT us Efe Laurent MD LAB URINE ORDERABLE S Final Result [facility] [address] [place] [address] * (ABNORMAL) Lipid panel (01/19/2025 2:59 PM [...] BLOOD ORDERABLE S Final Result [facility] [address] [place] [address] * (ABNORMAL) POCT hemoglobin A1c (01/19/2025 2:10 PM CDT) Hemoglobin A1C, POC 7.3 4.0 - 5.6 % Blood 01/19/2025 2:10 PM CDT Stephanie Hooker NP POINT OF CARE TEST ORDERA BLES Final Result * (ABNORMAL) DIABETES EYE EXAM (08/25/2024 7:17 AM CHIEF INSPECTOR) Historical Provider MD HEALTH MAINTENANCE Final Result from Last 3 Months or Most Recently Relevant to Health Maintenance Insurance AETNA MEDICARE GOLD HUMANA CHOICE MEDICARE PPO AETNA MEDICARE GOLD Care Teams Parts Processor Relationship Specialty Start Date End Date Art Trevino MD [address] [address] PCP - General Family Medicine 09/20/24
== END ==
PROVIDERS: PCP Nurse Practitioner Family; Visit Provider Nurse Practitioner Family
DX: R91.8 Other nonspecific abnormal finding of lung field (principal); R05.9 Cough, unspecified; R53.83 Other fatigue
CPT/HCPCS: 71046

== ENCOUNTER 2025-05-26 10:08 | Outpatient (CLI) | payer MEDICARE, SELFPAY ==
--- OUTSIDE RECORDS SUMMARY | 2025-05-26 10:24 | XMS_ITS | Clinical Summary ---
Author Organization [facility] Address [address] [place] [address] Care Team Providers Care Quarter Section Ironer Name Role Phone Unavailable Primary Care Provider Unavailabl e Source Comments [facility],non-owned Affiliates and Associated Physician Practices is amultiple site organization consisting of ambulatory clinics and hospital sitesin [place], [place], [place] and [place]. This disclosure is being madepursuant to the Care Everywhere program and may not contain all information available regarding this patient. 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
--- OUTSIDE RECORDS SUMMARY | 2025-05-26 10:24 | XMS_ITS | Clinical Summary ---
Author Organization [facility] Address [address] [place] [address] Care Team Providers Care Merchandising Lead Name Role Phone Art Trevino MD Primary Care Provider [phone] Allergies Active Allergy Reactions Criticality Noted Date [...] (325 mg total) by mouth daily Active ksfzo-4j-bco-epa -fish oil 300-1,000 mg capsule Take by [...] to now 7.3%. Will send me a [employer] if he'd like for me to send [...] daily DM eye exam fall 2023 at [facility]. Letter sent to get copy of report. Will update labs today. Verified that he uses [facility]. Aware to check results/results letter in [facility]. Will contact by phone if needed. Discussed [...] infection. Assessment & Plan (10/14/2024 11:19 AM UNDER GROUND MINER): Chronic, uncontrolled but stable Hemoglobin A1c 8.2%, [...] Rosuvastatin 20mg. Last lipid panel: 05/03/24 LDL=56, HX=611. Assessment & Plan (10/14/2024 11:19 AM UNDER GROUND MINER): Chronic, stable Continue rosuvastatin Hypertension associated with diabetes 10/14/2024 Assessment & Plan (01/19/2025 2:21 PM CDT): Chronic problem. Controlled on current carvedilol 25mg bid, valsartan-HCTZ 320- 25mg daily, amlodipine 10mg daily Assessment & Plan (10/14/2024 11:19 AM UNDER GROUND MINER): Chronic, well controlled Continue amlodipine, valsartan/hydrochlorothiazide Facial pressure 08/04/2018 Chronic sinusitis 08/04/2018 Deviated nasal septum 08/04/2018 Shortness of breath 02/26/2014 Overview (01/16/2017): SOB (shortness of breath) Cardiac tamponade 02/26/2014 Overview (01/16/2017): Cardiac tamponade Paroxysmal atrial fibrillation 02/26/2014 Overview (01/16/2017): AF (paroxysmal atrial fibrillation) Encounters Date Type Department Care Team Description 2025 Orders Only [facility] Medical Group Diabetes and Endocrinology [address] [place] [phone] Stephanie Hooker EDITORIAL DIRECTOR from Last 3 Months Immunizations Immunization Administration [...] on file Legal Sex Male 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 Gender Identity Not on file Sexual Orientation [...] Pneumococcal vaccine 65+ (2 of 2 - PPSV23, PCV20, or PCV21) 05/27/2018 04/01/2018 Covid-19 Vaccine (5 2023-2 5 season) 2024 2022, 09/10/2021, 12/29/2020, [...] DIABETES EYE EXAM Routine 08/25/2024 7:17 AM UNDER GROUND MINER from Last 3 Months or Most Recently [...] BLOOD ORDERABLE S Final Result [facility] [address] Department [place] [address] * Albumin Creatinine Ratio, Urine [...] LAB URINE ORDERABLE S Final Result [facility] [address] Department [place] [address] * (ABNORMAL) Lipid panel (01/19/2025 2:59 PM [...] BLOOD ORDERABLE S Final Result [facility] [address] Department [place] [address] * (ABNORMAL) POCT hemoglobin A1c (01/19/2025 2:10 PM CDT) Hemoglobin A1C, POC 7.3 4.0 - 5.6 % Blood 01/19/2025 2:10 PM CDT Stephanie Hooker NP POINT OF CARE TEST ORDERA BLES Final Result * (ABNORMAL) DIABETES EYE EXAM (08/25/2024 7:17 AM UNDER GROUND MINER) Historical Provider HEALTH MAINTENANCE Final Result from Last 3 Months or Most Recently Relevant to Health Maintenance Insurance AETNA MEDICARE GOLD HUMANA CHOICE MEDICARE PPO AETNA MEDICARE GOLD Care Teams Merchandising Lead Relationship Specialty Start Date End Date Art Trevino MD [address] [address] PCP - General Family Medicine 09/20/24
--- OUTSIDE RECORDS SUMMARY | 2025-05-26 10:24 | XMS_ITS | Encounter Summary ---
Author Organization [facility] Address [address] [place] [address] Care Team Providers Care Automotive Refinish Technician Name Role Phone Merari Adams MD Primary Care Provider [phone] Encounter Details Date Type Department Care Team (Late st Contact Info) Description 03/13/2020 Prep for Procedure [facility] One Day Services [address] [place] [address] Avni Astorga MD [address] [facility] [address] [place] [address] Social History Tobacco Use Types Packs/Day [...] as of this encounter Plan of Treatment Upcoming Encounters Date Type Department Care Team (Late st Contact Info) Description 05/27/2025 4:15 PM CDT Appointment [place] [facility] [place] [address] Maggy Campos APNP [address] [place] [address] [phone] (work) documented as of this encounter Results * PRE-SURGICAL/PRE-PROCEDURE CORONAVIRUS (COVID 19) (03/17/2020 11:31 AM CDT) CORONAVIRUS SARS COV 2 PCR (RESP) NOT DETECTED NOT DETECTED 03/18/2020 1:54 PM CDT [facility] Comment: A Not Detected (negative) test result [...] providers and patients using the following websites: https://www.[employer]z.com/home/Covid-19/HCP/QuestIVD/fact- sheet.html https://www.[employer].Actimagine/home/Covid-19/Patients/ QuestIVD/fact-sheet.html This test has been authorized by the FDA under an Emergency Use Authorization (EUA) for use by authorized laboratories. Due to the current public health emergency, [facility] is receiving a high volume of samples [...] about COVID-19 can be found at the [employer] website: www.[employer].Actimagine/Covid19. Test performed at [facility] [place] [address] [place] [address] Director: JOSIAH MURILLO DO,MPH NASOPHARYNGEAL SWAB / Unknown 03/17/2020 11:31 AM CDT us Avni Astorga MD MICROBIOLOGY - GENERAL ORDERAB LES Final Result [facility] [address] [place] [address], documented in this encounter Visit Diagnoses Diagnosis Pre-op testing- Primary Preoperative examination, unspecified documented in this encounter Additional Health Concerns Infection Onset Date Last Indicated Resolved Time COVID-19 Rule Out 03/17/2020 03/17/2020 03/18/2020 1:55 PM CDT documented as of this encounter Care Teams Automotive Refinish Technician Relationship Specialty Start Date End Date Merari Adams MD [address] [place] [address] [place] [address] PCP - General FAMILY PRACTICE 03/15/20 documented as of this encounter
--- OUTSIDE RECORDS SUMMARY | 2025-05-26 10:24 | XMS_ITS | Clinical Summary ---
Author Organization [facility] Address [facility] [place] [address] Care Team Providers Care Burning Plant Operator Name Role Phone Merari Adams MD Primary Care Provider [phone] Allergies Active Allergy Reactions Criticality Noted Date [...] 03/13/2020 6:13 PM CDT Plan of Treatment Upcoming Encounters Date Type Department Care Team (Late st Contact Info) Description 05/27/2025 4:15 PM CDT Appointment [place] [facility] [address] [facility] [address] [address] [address] Maggy Campos APNP [address] [address] Health Maintenance Due Date Last Done Comments [...] this topic Medical Devices Implanted Type Area Machine Stripper Device Identifier Shelf Expiration Date Model / Serial / Lot Iol Toric Lens [id number] - [id number] Implanted:Qty: 1 on 03/20/2020 by Avni Astorga MD at [facility] Lens Left: Eye [employer] 07/12/2022 [id number] / [id number] / [place] [address] AETNA Care Teams Burning Plant Operator Relationship Specialty Start Date End Date Merari Adams MD [address] [place] [address] [place] [address] PCP - General FAMILY PRACTICE 03/15/20
--- OUTSIDE RECORDS SUMMARY | 2025-05-26 10:24 | XMS_ITS | Clinical Summary ---
Author Organization [facility] Facility Address [address] [place] [address] Care Team Providers Care Central Service Tech Name Role Phone Unavailable Primary Care Provider [...] Visual Foot Exam 03/09/2024 Diabetes: Hemoglobin A1C 04/20/2025 025, 05/03/2024, 02/05/2024 Influenza Vaccine (#1) 2025 2, 07/15/2018, 09/17/2016, Additional history exists Hepatitis B [...] children. This test was performed on the [employer] c503 platform. Effective 12/29/23, a change in test platforms from the Castorena Consulting Engineer to the Moe amber c503 may have shifted HbA1c results compared to historical results. Based on laboratory validation testing conducted at [facility], the Moe platform relative to the Castorena [...] Performing Organization Information: Site ID: SL Name: [facility] Address: [address] [place] [address] Director: Marlene Doty us Ranjit Knox MD LAB BLOOD ORDERABLES Final R esult [facility] See order comments [place] [address] from Last 3 Months or Most Recently Relevant to Health Maintenance Insurance [facility]na [id number] Advance Directives Documents on File Type Date Recorded Patient 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
--- NOTE | 2025-05-26 10:26 | EST_ITS ---
Patient Info Name: Trevor Aldana Age: 80 years : 1945 Gender: Male Ht: 72 in Wt: 200 lbs BSA: 2.16 m2 HR: 98 bpm BP: 163 / 73 mmHg Exam Date: 05/26/2025 10:26 AM Patient Status: O Admit Date: 05/26/2025 Exam Type: CA stress test treadmill A treadmill exercise stress test was performed. Staff Attending Provider: Maggy Campos Exercise Technologist: Parag Krause DO Summary 1. 1. Negative Sergio exercise stress test for ischemic ST changes by ECG criteria. 2. 2. Poor functional capacity, achieving 3.4 METs of workload. 3. 3. Baseline hypertension. 4. 4. Appropriate HR response to exercise. 5. 5. Appropriate HR recovery at 1 minute post exercise. 6. 6. No imaging with stress testing. 7. 7. Patient informed of the above results. Protocol: Sergio Stress ECG Details Stage: REST Duration (min): 2 min : 4 sec Speed (mph): 0.0 Grade (%): 0 HR (bpm): 98 SBP (mmHg): 163 DBP (mmHg): 73 METS: --- Stage: REST Duration (min): 6 min : 44 sec Speed (mph): 0.0 Grade (%): 0 HR (bpm): 100 SBP (mmHg): 163 DBP (mmHg): 73 METS: --- Stage: STAGE 1 Duration (min): 1 min : 0 sec Speed (mph): 1.7 Grade (%): 10 HR (bpm): 119 SBP (mmHg): 163 DBP (mmHg): 73 METS: --- Stage: STAGE 1 Duration (min): 1 min : 20 sec Speed (mph): 1.7 Grade (%): 10 HR (bpm): 123 SBP (mmHg): 163 DBP (mmHg): 73 METS: --- Stage: RECOVERY Duration (min): 0 min : 39 sec Speed (mph): 0.0 Grade (%): 0 HR (bpm): 124 SBP (mmHg): 163 DBP (mmHg): 73 METS: --- Stage: RECOVERY Duration (min): 1 min : 39 sec Speed (mph): 0.0 Grade (%): 0 HR (bpm): 113 SBP (mmHg): 163 DBP (mmHg): 73 METS: --- Stage: RECOVERY Duration (min): 2 min : 39 sec Speed (mph): 0.0 Grade (%): 0 HR (bpm): 100 SBP (mmHg): 163 DBP (mmHg): 73 METS: --- Stage: RECOVERY Duration (min): 3 min : 39 sec Speed (mph): 0.0 Grade (%): 0 HR (bpm): 101 SBP (mmHg): 207 DBP (mmHg): 63 METS: --- Stage: RECOVERY Duration (min): 4 min : 39 sec Speed (mph): 0.0 Grade (%): 0 HR (bpm): 100 SBP (mmHg): 207 DBP (mmHg): 63 METS: --- Stage: RECOVERY Duration (min): 5 min : 39 sec Speed (mph): 0.0 Grade (%): 0 HR (bpm): 97 SBP (mmHg): 187 DBP (mmHg): 67 METS: --- Stage: RECOVERY Duration (min): 6 min : 39 sec Speed (mph): 0.0 Grade (%): 0 HR (bpm): 98 SBP (mmHg): 139 DBP (mmHg): 58 METS: --- Stage: RECOVERY Duration (min): 7 min : 14 sec Speed (mph): 0.0 Grade (%): 0 HR (bpm): --- SBP (mmHg): 139 DBP (mmHg): 58 METS: --- Rest HR: 100 bpm Peak HR: 125 bpm Rest Sys BP: 163 mmHg Peak Sys BP: 207 mmHg Max Pred HR: 142 bpm % Max Pred HR: 88 % Target HR: 121 bpm Max RPP: 25,875 bpm*mmHg Welch Score: -7 Termination Reason: Reached target heart rate or workload Cardiac Symptoms: Shortness of breath Max ST Seg Deviation: 1.70 mm Total Time: 1 min : 20 sec Rest [place]ieta BP: 73 mmHg Peak [place] BP: 63 mmHg Angina Score: None Total METS: 3.4 Resting ECG Sinus rhythm, PVC's. Stress ECG No ST changes. Arrhythmias None. Report Signatures
== END 2025-05-26 10:09 | disposition home or self-care (01) ==
PROVIDERS: PCP Nurse Practitioner Family; Visit Provider Nurse Practitioner Family
DX: R68.89 Other general symptoms and signs (principal); I10 Essential (primary) hypertension
CPT/HCPCS: 93017